=== PATIENT | female | born 1940 | race Caucasian/White ===

== ENCOUNTER 2020-12-08 13:28 | Outpatient (CLI) | payer MEDICARE, SELFPAY ==
[2020-12-08 13:47] LABS: Add Urine Microscopic? YES; Appearance Urine Clear (Clear); Bilirubin Urine Negative (Negative); Blood Urine 1+ (Negative); Color Urine Yellow (Yellow); Glucose Urine UA Negative (Negative); Ketones Urine Negative (Negative); Leukocyte Esterase Ur 3+ (Negative); Nitrate Urine Negative (Negative); Protein Urine Negative (Negative); Urobilinogen Urine 0.2 mg/dL (0.2-1.0)
[2020-12-08 13:56] LABS: Squamous Epithelial Cell Urine Few /hpf (Few); WBC Urine >75 /hpf (0-3)
[2020-12-08 13:57] LABS: Bacteria Urine 3+ /hpf
== END 2020-12-08 13:29 | disposition home or self-care (01) ==
LOC: CHSLAB 13:34
PROVIDERS: PCP Internal Medicine; Visit Provider Internal Medicine
DX: N39.0 Urinary tract infection, site not specified (principal)
CPT/HCPCS: 81001; 87086; 87088

== ENCOUNTER 2021-04-24 18:10 | IRF | payer MEDICARE, SELFPAY ==
--- NOTE | ~2021-04-24 | XR_ITS ---
EXAMINATION: XR chest 1V portable DATE: 05/02/2021 14:30 INDICATION: Leukocytosis. Dysphagia. TECHNIQUE: A single frontal view of the chest was obtained. COMPARISON: Chest 2 views 12/11/2016 FINDINGS: There are airspace opacities in left lower lung zone. No pleural effusion or pneumothorax. The heart size is normal. Calcified right hilar lymph nodes are consistent with old granulomatous dis ease. There are changes of posterior fusion procedure in cervical spine. An electronic device overlie s left chest. There is an old healed fracture of proximal left humerus. IMPRESSION: 1. Airspace opacities in left lower lung zone, consistent with atelectasis versus pneumonia. Reviewed, dictated and finalized at location A. IMPRESSION: 1. Airspace opacities in left lower lung zone, consistent with atelectasis vers us pneumonia.
--- NOTE | ~2021-04-24 | XR_ITS ---
EXAMINATION: XR barium swallow modified DATE: 04/26/2021 09:14 INDICATION: Stroke TECHNIQUE: Modified barium esophagram was performed by myself to administered fluoroscopy, in conjun ction with speech pathologist who administered barium in varying consistencies as per speech patholog ist documentation. This was recorded on tape. A single fluoroscopic spot image was recorded. The DAP for this procedure was 2.155 Gycm2. Fluoroscopy exposure time was 2.9 minutes. FINDINGS: Oral stage: Adequate function. Pharyngeal phase: Adequate function. Laryngeal penetration: None. Aspiration: None. Laryngeal sensitivity: Present. IMPRESSION: Normal modified barium swallow. Please refer to speech pathologist findings and specific feeding recommendations. Reviewed, dictated and finalized at location A.
[2021-04-24 18:15] VITALS: BP 172/50; PULSE 58; RESP 18; TEMP 36.2; O2SAT 99; BMI 29.7
--- NOTE | 2021-04-24 18:51 | ADMGEN ---
This patient, Ry Nesbitt, was admitted to [facility] Room 223-02. Patient/family oriented to hospital policies and general routines including ID bracelet, bed and alarms, visiting hours, pain management, procedures, bathroom and other care routines, personal items, smoking policy, room service/diet, and visiting hours. Information on how to activate the Rapid Response Team has been discussed. Patient/Family are encouraged to report perceived risks to care and to ask questions if they do not understand what they are told or what they should do. Arrived via private auto with daughter, she is alert and oriented and has no c/o pain
[2021-04-24] MEDS: MELATONIN 5 MG TABLET PO (20:49)
[2021-04-24] MEDS: CEPHALEXIN 500 MG CAPSULE PO (20:49)
[2021-04-24] MEDS: SENNA/DOCUSATE SODIUM TABLET 1 TAB PO (20:50)
[2021-04-24] MEDS: hydrOXYzine pamoate 25 MG CAPSULE PO (20:51)
[2021-04-24] MEDS: DULoxetine HCL 30 MG CAPSULE.DR PO (20:52)
[2021-04-24] MEDS: ATORVASTATIN 40 MG TABLET PO (20:52)
[2021-04-24] MEDS: oxyCODONE/ACETAMINOPHEN (*CRX) 5-325 MG TABLET 1 TABLET PO (20:58)
[2021-04-24 21:30] VITALS: BP 165/59; PULSE 67; RESP 18; TEMP 35.8; O2SAT 99
[2021-04-24] MEDS: ENOXAPARIN 40 MG/0.4 ML SYRINGE SUB-Q (21:45)
[2021-04-25 05:01] LABS: Basophils Percent Auto 0.2 % (0.2-1.2); Hematocrit 38.4 % (37.0-47.0); Immature Granulocyte Absolute 0.05 K/mm3 (0.00-0.031); Immature Granulocyte Percent A 0.4 % (0-0.5); Lymphocytes Absolute Auto 2.43 K/mm3 (0.9-3.2); Lymphocytes Percent Auto 19.9 % (18.3-44.2); Mean Corpuscular HGB Conc 33.9 g/dl (32-36); Mean Corpuscular Hemoglobin 29.8 pg (26-34); Mean Corpuscular Volume 88.1 fl (80-100); Mean Platelet Volume 9.3 fl (7.4-10.4); Monocytes Absolute Auto 1.3 K/mm3 (0.1-0.6); Monocytes Percent Auto 10.8 % (2.6-8.5); Neutrophils Absolute Auto 8.4 K/mm3 (1.3-6.7); Neutrophils Percent Auto 68.7 % (45.5-73.1); Platelet Count Result 198 k/mm3 (150-375); Red Blood Count 4.36 M/mm3 (4.2-5.4); Red Cell Distribution Width 13.3 % (11.5-14.5); White Blood Count 12.2 K/mm3 (4.5-10.0)
[2021-04-25 05:12] LABS: Alanine Aminotransferase 30 U/L (4-35); Albumin Level 4.2 g/dL (3.5-5.1); Alkaline Phosphatase 118 U/L (38-126); Anion Gap 8 mmol/L (8-16); Aspartate Amino Transferase 55 U/L (14-36); Bilirubin,Total 0.8 mg/dL (0.2-1.3); Blood Urea Nitrogen 16 mg/dL (7-17); Calcium 9.2 mg/dL (8.4-10.2); Carbon Dioxide 28 mmol/L (22-30); Chloride 104 mmol/L (98-107); Cholesterol 181 mg/dL (0-200); Estimated Glomerular Filt Rate 60; Glucose 105 mg/dL (65-105); HDL Direct 55 mg/dL; Potassium 3.5 mmol/L (3.4-5.0); Sodium 140 mmol/L (137-145); Triglycerides 127 mg/dL (<150)
[2021-04-25 05:23] LABS: LDL Cholesterol Direct 72 mg/dL
[2021-04-25 05:59] VITALS: BP 162/57; PULSE 82; RESP 20; TEMP 36.1; O2SAT 96
[2021-04-25] MEDS: oxyCODONE/ACETAMINOPHEN (*CRX) 5-325 MG TABLET 1 TABLET PO ×2 (08:31→20:44)
[2021-04-25] MEDS: ASPIRIN 325 MG TABLET PO (08:33)
[2021-04-25] MEDS: hydrOXYzine pamoate 25 MG CAPSULE PO ×2 (08:33→20:44)
[2021-04-25] MEDS: amLODIPine BESYLATE 5 MG TABLET 10 MG PO (08:33)
[2021-04-25] MEDS: MULTIVITAMINS /C LUTEIN (CENTRUM SILVER) TABLET *BKC 1 TAB PO (08:34)
[2021-04-25] MEDS: SENNA/DOCUSATE SODIUM TABLET 1 TAB PO ×2 (08:34→20:44)
[2021-04-25] MEDS: hydroCHLOROthiazide 25 MG TABLET PO (08:34)
[2021-04-25 09:08] VITALS: PULSE 82
[2021-04-25] MEDS: CEPHALEXIN 500 MG CAPSULE PO ×2 (09:08→20:45)
[2021-04-25] MEDS: TIZANIDINE HCL 2 MG TABLET PO (09:08)
[2021-04-25] MEDS: METOPROLOL TARTRATE 50 MG TAB PO ×2 (09:08→20:44)
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
[2021-04-25 13:02] VITALS: BMI 29.7
[2021-04-25 13:43] VITALS: BP 116/53; PULSE 67; RESP 16; TEMP 36.2; O2SAT 97
[2021-04-25] MEDS: ACETAMINOPHEN 325 MG TABLET 650 MG PO (15:55)
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
[2021-04-25 20:44] VITALS: PULSE 67
[2021-04-25] MEDS: DULoxetine HCL 30 MG CAPSULE.DR PO (20:45)
[2021-04-25] MEDS: ATORVASTATIN 40 MG TABLET PO (20:45)
[2021-04-25] MEDS: MELATONIN 5 MG TABLET PO (20:45)
[2021-04-25] MEDS: ENOXAPARIN 40 MG/0.4 ML SYRINGE SUB-Q (20:46)
[2021-04-25 22:00] VITALS: BP 138/51; PULSE 65; RESP 16; TEMP 36.1; O2SAT 94
[2021-04-26 05:56] VITALS: BP 147/56; PULSE 63; RESP 16; TEMP 35.9; O2SAT 98
[2021-04-26 08:00] VITALS: PULSE 63; RESP 16; O2SAT 98
[2021-04-26] MEDS: hydroCHLOROthiazide 25 MG TABLET PO (08:34)
[2021-04-26] MEDS: ASPIRIN 325 MG TABLET PO (08:34)
[2021-04-26] MEDS: TIZANIDINE HCL 2 MG TABLET PO (08:34)
[2021-04-26 08:35] VITALS: PULSE 63
[2021-04-26] MEDS: SENNA/DOCUSATE SODIUM TABLET 1 TAB PO ×2 (08:35→20:05)
[2021-04-26] MEDS: MULTIVITAMINS /C LUTEIN (CENTRUM SILVER) TABLET *BKC 1 TAB PO (08:35)
[2021-04-26] MEDS: METOPROLOL TARTRATE 50 MG TAB PO ×2 (08:35→20:06)
[2021-04-26] MEDS: CEPHALEXIN 500 MG CAPSULE PO ×2 (08:35→20:05)
[2021-04-26] MEDS: amLODIPine BESYLATE 5 MG TABLET 10 MG PO (08:35)
[2021-04-26] MEDS: oxyCODONE/ACETAMINOPHEN (*CRX) 5-325 MG TABLET 1 TABLET PO ×2 (08:39→20:04)
[2021-04-26 14:00] VITALS: BP 133/48; PULSE 64; RESP 16; TEMP 36.5; O2SAT 100
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
--- NOTE | 2021-04-26 15:11 | RPD ---
INDIVIDUALIZED PLAN OF CARE FOR Raqueltel Nesbitt Brief Synthesis of Pre-Admission Screen, Post-Admission Evaluation and Therapy Evaluations: The patient presents to rehab with a right MCA ischemic embolic stroke. Comorbidities include left-sided weakness, hypokalemia, urinary tract infection, prediabetes, hypertension, cervical radiculopathy, low back pain, dysarthria, dysphagia, and anxiety.The complexity of the patient's medical management, nursing, and therapy needs require an inpatient rehab hospital stay with a physician-led interdisciplinary team approach. The patient?s needs will be best met in an intensive program vs. at a lower level of care. The patient requires physician services for medical oversight, and coordination of care. Emotional needs will be monitored as depression is a common sequelae of stroke. The patient needs physician monitoring and treatment of a new prediabetes diagnosis, hypertension, hyperlipidemia, hypokalemia, urinary tract infection, cervical radiculopathy, monitoring for adverse reactions to new medications, monitoring of infection, and pain control. The patient requires nursing services for frequent neuro checks, anticoagulation therapy, medication management and education, pressure relief and skin care management, monitoring of labs, diabetes management and education, possible IV administration, and fall/safety precautions. Deficits include:ADLs, Balance, Cognition, Endurance, Family Training/Education, Mobility, Pain Management, ROM, Safety, Speech, Strength, Swallowing, and Transfers. Photo Journalist/Case Management for: Discharge Planning and Patient/Family Counseling Physical Therapy: 5 days per week for 75 minutes. Treatments may include: Therapeutic Exercise, Gait Training, Neuromuscular Re-education, Transfer Training, Community Reintegration, Bed Mobility, Patient/Family Education, Wheelchair Mobility Group Therapy/Concurrent Therapy Rationales: -Improve attention span during functional activities in a distracted environment. -Enhance problem solving and/or adequate judgment skills during functional activities in a distracted environment. -Promote increased safety awareness in a distracted environment to reduce fall risk with functional tasks, transfers, and ambulation to allow a more safe, self-sufficient return to the home environment. -Improve dynamic balance skills to promote safety and independence with functional activities in a distracted environment for maximum gain. Occupational Therapy: 5 days per week for 75 minutes. Treatments may include: Therapeutic Exercise, Therapeutic Activity, Cognitive Training, Self-Care Transfer Training, Community Reintegration, Home Management, Patient/Family Education, Wheelchair Mobility Training, Energy Conservation Training Group Therapy/Concurrent Therapy Rationales: -Allow therapist to observe and teach generalization and carry-over of skills learned in individual therapy. -Enhance problem solving and sequencing skills during therapeutic activities in a distracted environment. -Promote increased safety awareness in a realistic setting to reduce fall risk with functional tasks due to visual and verbal distractions. -Increase functional level with ADLs, ADL transfers and use of adaptive equipment through therapeutic activities with others while promoting safety to allow a more safe, self-sufficient return home. Speech Therapy: 5 days per week for 30 minutes. Treatments may include: Dysphasia Therapy, Speech/Language/Communication Therapy, Cognitive Training, Patient/Family Education Group Therapy/Concurrent Therapy - Rationale: -Allow therapist to observe and teach generalization and carry-over of skills learned in individual therapy. -Improve comprehension skills with complex or abstract ideas through discussion in a realistic setting. -Enhance problem solving skills with complex issues during activities in a distracted environment. -Promote increased memory skills and concentrat
[2021-04-26] MEDS: oxyCODONE HCL (*CRX) 5 MG TAB IR PO (20:04)
[2021-04-26] MEDS: ENOXAPARIN 40 MG/0.4 ML SYRINGE SUB-Q (20:05)
[2021-04-26] MEDS: ATORVASTATIN 40 MG TABLET PO (20:05)
[2021-04-26 20:06] VITALS: PULSE 64
[2021-04-26] MEDS: MELATONIN 5 MG TABLET PO (20:06)
[2021-04-26] MEDS: DULoxetine HCL 30 MG CAPSULE.DR PO (20:06)
[2021-04-26 22:00] VITALS: BP 128/65; PULSE 77; RESP 20; TEMP 35.8; O2SAT 95
[2021-04-27] VITALS (8 sets, daily range): BP systolic 138–150; BP diastolic 61–77; PULSE 61–79; RESP 16–20; TEMP 36–36.2; O2SAT 94–96
[2021-04-27] MEDS: oxyCODONE HCL (*CRX) 5 MG TAB IR PO (07:37)
[2021-04-27] MEDS: oxyCODONE/ACETAMINOPHEN (*CRX) 5-325 MG TABLET 1 TABLET PO (07:37)
[2021-04-27] MEDS: ASPIRIN 325 MG TABLET PO (08:35)
[2021-04-27] MEDS: METOPROLOL TARTRATE 50 MG TAB PO ×2 (08:36→20:59)
[2021-04-27] MEDS: amLODIPine BESYLATE 5 MG TABLET 10 MG PO (08:36)
[2021-04-27] MEDS: CEPHALEXIN 500 MG CAPSULE PO ×2 (08:36→20:59)
[2021-04-27] MEDS: SENNA/DOCUSATE SODIUM TABLET 1 TAB PO ×2 (08:37→20:59)
[2021-04-27] MEDS: hydroCHLOROthiazide 25 MG TABLET PO (08:37)
[2021-04-27] MEDS: MULTIVITAMINS /C LUTEIN (CENTRUM SILVER) TABLET *BKC 1 TAB PO (08:37)
[2021-04-27] MEDS: TIZANIDINE HCL 2 MG TABLET PO (08:37)
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
--- NOTE | 2021-04-27 13:10 | PCNFU ---
Nutrition Follow-Up Complete: Nutrition Diagnosis: Inadequate oral intake related to poor appetite as evidenced by patient statements, intakes less than 50% at meals, documented weight loss. Nutrition Goal: Patient will consume 50% of meals/supplements or greater and maintain weight. Goal has been met, patient is consistently consuming 75% or greater of meals/ supplements. Nutrition recommendation: Continue with Regular diet and Frozen Nutritional Treat (300 calories and 9 grams of protein) BID, per patient's request. Last recorded weight is 66.9 kg. Recommend obtaining new weight. Bowel Motility: Last documented on 04/26. Labs Reviewed: No new labs have been documented. Meds Noted: Norvasc, Lipitor, Senna, Bisacodyl, Calcium Carbonate, Keflex, Cymbalta, Lovenox, Hydrochlorothiazide, Vistaril, Lopressor, Zanaflex, Centrum Additional Notes: Skin is within normal limits, no causes of concern documented. Agree with diet orders. [place] MNT provided today via handout. Follow up every 7 days.
--- NOTE | 2021-04-27 13:27 | PCNSR ---
On 04/27/21, the student, Lora Means, provided care and completed [facility] documentation on this patient. I have reviewed the student's documentation and agree with the findings.
[2021-04-27] MEDS: MELATONIN 5 MG TABLET PO (21:00)
[2021-04-27] MEDS: DULoxetine HCL 30 MG CAPSULE.DR PO (21:00)
[2021-04-27] MEDS: ENOXAPARIN 40 MG/0.4 ML SYRINGE SUB-Q (21:00)
[2021-04-27] MEDS: ATORVASTATIN 40 MG TABLET PO (21:00)
[2021-04-28 06:00] VITALS: BP 150/46; PULSE 66; RESP 18; TEMP 36; O2SAT 96
[2021-04-28] MEDS: amLODIPine BESYLATE 5 MG TABLET 10 MG PO (08:39)
[2021-04-28 08:40] VITALS: PULSE 66
[2021-04-28] MEDS: hydroCHLOROthiazide 25 MG TABLET PO (08:40)
[2021-04-28] MEDS: MULTIVITAMINS /C LUTEIN (CENTRUM SILVER) TABLET *BKC 1 TAB PO (08:40)
[2021-04-28] MEDS: ASPIRIN 325 MG TABLET PO (08:40)
[2021-04-28] MEDS: TIZANIDINE HCL 2 MG TABLET PO (08:40)
[2021-04-28] MEDS: METOPROLOL TARTRATE 50 MG TAB PO ×2 (08:40→20:39)
[2021-04-28] MEDS: SENNA/DOCUSATE SODIUM TABLET 1 TAB PO ×2 (08:42→20:39)
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
--- NOTE | 2021-04-28 10:10 | ECG_ITS ---
Measurements Intervals [place] Rate: 61 P: 7 MS: 195 QRS: -12 QRSD: 152 T: 8 QT: 444 QTc: 449 Interpretive Statements SINUS RHYTHM RIGHT BUNDLE BRANCH BLOCK VOLTAGE CRITERIA FOR LVH BASELINE ARTIFACT- I, II, AVR ABNORMAL ECG Electronically Signed On 04-28-2021 19:21:20 CDT by Kel Gonzalez D.O.
[2021-04-28 10:16] LABS: Glucose Point of Care 219 mg/dl (65-105)
--- NOTE | 2021-04-28 10:43 | PC.NURSE ---
during physical therapy this am patient had a 'spell' where she felt 'dizzy and felt like jelly'. B/P 123, Dr. Valerio made aware and orders received. EKG done and results reviewed by Dr. Machuca
[2021-04-28 11:38] LABS: Basophils Percent Auto 0.2 % (0.2-1.2); Hematocrit 38.7 % (37.0-47.0); Hemoglobin 12.9 g/dL (12.0-15.0); Immature Granulocyte Absolute 0.05 K/mm3 (0.00-0.031); Immature Granulocyte Percent A 0.4 % (0-0.5); Lymphocytes Absolute Auto 1.75 K/mm3 (0.9-3.2); Lymphocytes Percent Auto 14.8 % (18.3-44.2); Mean Corpuscular HGB Conc 33.3 g/dl (32-36); Mean Corpuscular Hemoglobin 29.7 pg (26-34); Mean Platelet Volume 9.9 fl (7.4-10.4); Monocytes Absolute Auto 1.2 K/mm3 (0.1-0.6); Monocytes Percent Auto 9.9 % (2.6-8.5); Neutrophils Absolute Auto 8.9 K/mm3 (1.3-6.7); Neutrophils Percent Auto 74.7 % (45.5-73.1); Platelet Count Result 239 k/mm3 (150-375); Red Blood Count 4.35 M/mm3 (4.2-5.4); Red Cell Distribution Width 13.2 % (11.5-14.5); White Blood Count 11.8 K/mm3 (4.5-10.0)
[2021-04-28 11:53] LABS: Alanine Aminotransferase 26 U/L (4-35); Albumin Level 4.3 g/dL (3.5-5.1); Alkaline Phosphatase 107 U/L (38-126); Anion Gap 10 mmol/L (8-16); Aspartate Amino Transferase 34 U/L (14-36); Bilirubin,Total 0.6 mg/dL (0.2-1.3); Blood Urea Nitrogen 28 mg/dL (7-17); Calcium 9.4 mg/dL (8.4-10.2); Carbon Dioxide 27 mmol/L (22-30); Chloride 101 mmol/L (98-107); Estimated Glomerular Filt Rate 53; Glucose 142 mg/dL (65-105); Potassium 3.4 mmol/L (3.4-5.0); Sodium 138 mmol/L (137-145)
[2021-04-28] MEDS: LIDOCAINE 5% PATCH 2 PATCH TRANSDERM (12:30)
[2021-04-28 14:00] VITALS: BP 135/50; PULSE 71; RESP 20; TEMP 36.6; O2SAT 98
[2021-04-28 20:00] VITALS: PULSE 85; RESP 18; O2SAT 99
[2021-04-28 20:39] VITALS: PULSE 58
[2021-04-28] MEDS: ATORVASTATIN 40 MG TABLET PO (20:39)
[2021-04-28] MEDS: DULoxetine HCL 30 MG CAPSULE.DR PO (20:39)
[2021-04-28] MEDS: ENOXAPARIN 40 MG/0.4 ML SYRINGE SUB-Q (20:42)
[2021-04-28] MEDS: MELATONIN 5 MG TABLET PO (20:58)
[2021-04-28] MEDS: oxyCODONE HCL (*CRX) 5 MG TAB IR PO (20:59)
[2021-04-28] MEDS: oxyCODONE/ACETAMINOPHEN (*CRX) 5-325 MG TABLET 1 TABLET PO (21:00)
[2021-04-28 21:58] VITALS: BP 141/49; PULSE 85; RESP 18; TEMP 36.1; O2SAT 99
[2021-04-29 06:00] VITALS: BP 152/56; PULSE 84; RESP 16; TEMP 36.4; O2SAT 95
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
[2021-04-29] MEDS: hydrOXYzine pamoate 25 MG CAPSULE PO ×2 (08:36→21:05)
[2021-04-29] MEDS: ACETAMINOPHEN 500 MG TABLET PO ×2 (08:37→17:21)
[2021-04-29] MEDS: amLODIPine BESYLATE 5 MG TABLET 10 MG PO (08:37)
[2021-04-29] MEDS: SENNA/DOCUSATE SODIUM TABLET 1 TAB PO ×2 (08:38→21:06)
[2021-04-29] MEDS: LIDOCAINE 5% PATCH 3 PATCH TRANSDERM (08:38)
[2021-04-29] MEDS: hydroCHLOROthiazide 25 MG TABLET PO (08:38)
[2021-04-29] MEDS: TIZANIDINE HCL 2 MG TABLET PO (08:38)
[2021-04-29] MEDS: ASPIRIN 325 MG TABLET PO (08:38)
[2021-04-29] MEDS: MULTIVITAMINS /C LUTEIN (CENTRUM SILVER) TABLET *BKC 1 TAB PO (08:38)
[2021-04-29 08:39] VITALS: PULSE 84
[2021-04-29] MEDS: METOPROLOL TARTRATE 50 MG TAB PO ×2 (08:39→20:57)
[2021-04-29 13:26] VITALS: BP 128/48; PULSE 70; RESP 18; TEMP 36.2; O2SAT 96
[2021-04-29] MEDS: DULoxetine HCL 30 MG CAPSULE.DR PO (20:56)
[2021-04-29] MEDS: ATORVASTATIN 40 MG TABLET PO (20:56)
[2021-04-29 20:57] VITALS: PULSE 70
[2021-04-29] MEDS: MELATONIN 5 MG TABLET PO (20:57)
[2021-04-29] MEDS: oxyCODONE/ACETAMINOPHEN (*CRX) 5-325 MG TABLET 1 TABLET PO (21:04)
[2021-04-29] MEDS: ENOXAPARIN 40 MG/0.4 ML SYRINGE SUB-Q (21:06)
[2021-04-29 22:00] VITALS: BP 151/58; PULSE 72; RESP 18; TEMP 36; O2SAT 92
[2021-04-30 06:00] VITALS: BP 167/64; PULSE 84; RESP 18; TEMP 36.6; O2SAT 96
[2021-04-30] MEDS: LIDOCAINE 5% PATCH 3 PATCH TRANSDERM (08:44)
[2021-04-30 08:48] VITALS: PULSE 84
[2021-04-30] MEDS: amLODIPine BESYLATE 5 MG TABLET 10 MG PO (08:48)
[2021-04-30] MEDS: hydroCHLOROthiazide 25 MG TABLET PO (08:48)
[2021-04-30] MEDS: MULTIVITAMINS /C LUTEIN (CENTRUM SILVER) TABLET *BKC 1 TAB PO (08:48)
[2021-04-30] MEDS: METOPROLOL TARTRATE 50 MG TAB PO ×2 (08:48→20:46)
[2021-04-30] MEDS: SENNA/DOCUSATE SODIUM TABLET 1 TAB PO ×2 (08:48→20:44)
[2021-04-30] MEDS: ASPIRIN 325 MG TABLET PO (08:48)
[2021-04-30] MEDS: TIZANIDINE HCL 2 MG TABLET PO (08:48)
[2021-04-30] MEDS: ACETAMINOPHEN 500 MG TABLET PO (08:53)
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
[2021-04-30 14:00] VITALS: BP 149/57; PULSE 96; RESP 18; TEMP 35.9; O2SAT 92
--- NOTE | 2021-04-30 15:00 | PCPTNOTE ---
Ry Nesbitt was evaluated for a ilda cane on 04/30/2021 by this physical therapist. The ilda cane will resolve patient's mobility limitations and will be used for ADL's within the home. The patient can safely use the ilda cane. ?The ilda cane will resolve the patient?s mobility deficits, including balance deficits, decreased endurance, and L hemiparesis.
[2021-04-30 20:00] VITALS: PULSE 63; RESP 18; O2SAT 94
[2021-04-30] MEDS: ATORVASTATIN 40 MG TABLET PO (20:44)
[2021-04-30] MEDS: DULoxetine HCL 20 MG CAPSULE.DR 40 MG PO (20:45)
[2021-04-30 20:46] VITALS: PULSE 96
[2021-04-30] MEDS: ENOXAPARIN 40 MG/0.4 ML SYRINGE SUB-Q (20:46)
[2021-04-30] MEDS: hydrOXYzine pamoate 25 MG CAPSULE PO (20:47)
[2021-04-30] MEDS: MELATONIN 5 MG TABLET PO (20:50)
[2021-04-30] MEDS: oxyCODONE/ACETAMINOPHEN (*CRX) 5-325 MG TABLET 1 TABLET PO (20:57)
[2021-04-30] MEDS: oxyCODONE HCL (*CRX) 5 MG TAB IR PO (20:58)
[2021-04-30 22:00] VITALS: BP 150/54; PULSE 63; RESP 18; TEMP 36.2; O2SAT 94
[2021-05-01 06:00] VITALS: BP 150/57; PULSE 65; RESP 16; TEMP 36.4; O2SAT 94
[2021-05-01 08:00] VITALS: PULSE 65; RESP 16; O2SAT 94
[2021-05-01] MEDS: hydroCHLOROthiazide 25 MG TABLET PO (09:15)
[2021-05-01] MEDS: amLODIPine BESYLATE 5 MG TABLET 10 MG PO (09:15)
[2021-05-01] MEDS: SENNA/DOCUSATE SODIUM TABLET 1 TAB PO ×2 (09:15→22:21)
[2021-05-01] MEDS: MULTIVITAMINS /C LUTEIN (CENTRUM SILVER) TABLET *BKC 1 TAB PO (09:15)
[2021-05-01] MEDS: ASPIRIN 325 MG TABLET PO (09:15)
[2021-05-01 09:16] VITALS: PULSE 65
[2021-05-01] MEDS: TIZANIDINE HCL 2 MG TABLET PO (09:16)
[2021-05-01] MEDS: METOPROLOL TARTRATE 50 MG TAB PO ×2 (09:16→22:22)
[2021-05-01] MEDS: LIDOCAINE 5% PATCH 3 PATCH TRANSDERM (09:16)
--- NOTE | 2021-05-01 09:16 | PCPTNOTE ---
Riri ALluvia Fiore PTA completed an inpatient rehab wheelchair evaluation on Raqueltelore Nesbitt on 05/01/2021. The patient is unable to safely and independently ambulate household distances due to their current impairments. Their diagnosis is CVA and their impairments include decreased strength, decreased endurance, decreased range of motion, decreased balance and lower extremity weakness. Bernardo's weight bearing status is weight-bearing as tolerated on the bilateral lower legs. The patient demonstrates significant functional mobility limitations that impair their ability to participate in mobility-related activities of daily living (MRADLs), including toileting, feeding, dressing, grooming, and bathing in the customary locations in the home. These limitations cannot be sufficiently resolved by the use of an appropriately fitted cane or walker. It is recommended that the patient utilize a wheelchair for functional mobility within the home in order to facilitate optimal safety, independence and participation in all MRADL's and adequately access their home environment on a regular basis. The patient's home provides adequate access between rooms, maneuvering space, and surfaces to accommodate the recommended wheelchair. The use of a wheelchair for functional mobility is strongly recommended and the patient is receptive to using the wheelchair. The use of this wheelchair will significantly improve the patient's ability to participate in MRADLS and the patient will use it on a regular basis in the home. This will facilitate optimal safety, independence, and participation. The patient has demonstrated sufficient physical and mental capabilities needed to safely propel a manual wheelchair that is provided in the home during a typical day. Recommended Wheelchair Frame: Standard Recommended Wheelchair Size: 16x16 (17 inch height of chair to floor due to patient's anatomical height of 4 feet 11 inches) Recommended Wheelchair Cushion:standard Wheelchair Leg Recommendations: swing away leg rests - Anti-tippers are recommended due to patient demonstrating increased risk for falls. They would benefit from anti-tippers with added safety and stabilization. Riri Fiore NECKTIE STITCHER 05/01/2021 Evaluating Therapist Date I agree with and certify that the above recommendation is medically necessary. Referring Physician Date I agree with and certify that the above recommendation is medically necessary. Referring Physician Date
[2021-05-01 14:00] VITALS: BP 139/44; PULSE 64; RESP 16; TEMP 36.5; O2SAT 96
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
[2021-05-01 21:59] VITALS: BP 152/93; PULSE 80; RESP 18; TEMP 36.8; O2SAT 97
[2021-05-01] MEDS: ENOXAPARIN 40 MG/0.4 ML SYRINGE SUB-Q (22:21)
[2021-05-01 22:22] VITALS: PULSE 80
[2021-05-01] MEDS: ATORVASTATIN 40 MG TABLET PO (22:22)
[2021-05-01] MEDS: DULoxetine HCL 30 MG CAPSULE.DR PO (22:23)
[2021-05-01] MEDS: hydrOXYzine pamoate 25 MG CAPSULE PO (22:23)
[2021-05-01] MEDS: oxyCODONE/ACETAMINOPHEN (*CRX) 5-325 MG TABLET 1 TABLET PO (22:25)
[2021-05-01] MEDS: MELATONIN 5 MG TABLET PO (22:25)
[2021-05-02 05:07] LABS: Basophils Percent Auto 0.2 % (0.2-1.2); Hematocrit 34.9 % (37.0-47.0); Hemoglobin 11.6 g/dL (12.0-15.0); Immature Granulocyte Absolute 0.07 K/mm3 (0.00-0.031); Immature Granulocyte Percent A 0.5 % (0-0.5); Lymphocytes Absolute Auto 2.96 K/mm3 (0.9-3.2); Lymphocytes Percent Auto 22.3 % (18.3-44.2); Mean Corpuscular HGB Conc 33.2 g/dl (32-36); Mean Corpuscular Hemoglobin 29.1 pg (26-34); Mean Corpuscular Volume 87.7 fl (80-100); Mean Platelet Volume 9.3 fl (7.4-10.4); Monocytes Absolute Auto 1.4 K/mm3 (0.1-0.6); Monocytes Percent Auto 10.4 % (2.6-8.5); Neutrophils Absolute Auto 8.8 K/mm3 (1.3-6.7); Neutrophils Percent Auto 66.6 % (45.5-73.1); Platelet Count Result 260 k/mm3 (150-375); Red Blood Count 3.98 M/mm3 (4.2-5.4); Red Cell Distribution Width 12.7 % (11.5-14.5); White Blood Count 13.3 K/mm3 (4.5-10.0)
[2021-05-02 05:50] VITALS: BP 146/61; PULSE 65; RESP 18; TEMP 36.4; O2SAT 96
[2021-05-02 06:49] LABS: Alanine Aminotransferase 19 U/L (4-35); Albumin Level 3.8 g/dL (3.5-5.1); Alkaline Phosphatase 113 U/L (38-126); Anion Gap 9 mmol/L (8-16); Aspartate Amino Transferase 30 U/L (14-36); Bilirubin,Total 0.5 mg/dL (0.2-1.3); Blood Urea Nitrogen 23 mg/dL (7-17); Carbon Dioxide 29 mmol/L (22-30); Chloride 99 mmol/L (98-107); Estimated Glomerular Filt Rate > 60; Glucose 122 mg/dL (65-105); Potassium 2.9 mmol/L (3.4-5.0); Sodium 137 mmol/L (137-145)
[2021-05-02] MEDS: ACETAMINOPHEN 500 MG TABLET PO ×2 (08:38→17:45)
[2021-05-02] MEDS: amLODIPine BESYLATE 5 MG TABLET 10 MG PO (08:39)
[2021-05-02] MEDS: SENNA/DOCUSATE SODIUM TABLET 1 TAB PO ×2 (08:39→20:04)
[2021-05-02] MEDS: ASPIRIN 325 MG TABLET PO (08:39)
[2021-05-02 08:40] VITALS: PULSE 65
[2021-05-02] MEDS: LIDOCAINE 5% PATCH 3 PATCH TRANSDERM (08:40)
[2021-05-02] MEDS: TIZANIDINE HCL 2 MG TABLET PO (08:40)
[2021-05-02] MEDS: hydroCHLOROthiazide 25 MG TABLET PO (08:40)
[2021-05-02] MEDS: METOPROLOL TARTRATE 50 MG TAB PO ×2 (08:40→20:04)
[2021-05-02] MEDS: MULTIVITAMINS /C LUTEIN (CENTRUM SILVER) TABLET *BKC 1 TAB PO (08:40)
[2021-05-02 09:44] VITALS: BP 168/54; PULSE 69; O2SAT 97
[2021-05-02 14:00] VITALS: BP 152/59; PULSE 73; RESP 16; TEMP 36.5; O2SAT 97
[2021-05-02 15:44] LABS: Add Urine Microscopic? YES; Appearance Urine Cloudy (Clear); Bacteria Urine Trace /hpf; Bilirubin Urine Negative (Negative); Blood Urine Negative (Negative); Color Urine Amber (Yellow); Glucose Urine UA Negative (Negative); Hyaline Casts Urine 15-19 /lpf; Ketones Urine Negative (Negative); Leukocyte Esterase Ur 2+ LEU/UL (Negative); Mucus Urine Rare /lpf; Nitrate Urine Negative (Negative); Protein Urine 1+ mg/dL (Negative); Squamous Epithelial Cell Urine Moderate /hpf (Few); Urobilinogen Urine Negative mg/dL (<2.0); WBC Urine 21-30 /hpf
[2021-05-02] MEDS: POTASSIUM CHLORIDE 20 MEQ PACKET (FOR LIQUID) 40 MEQ PO (17:39)
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
[2021-05-02] MEDS: CEPHALEXIN 500 MG CAPSULE PO (18:54)
[2021-05-02] MEDS: ALBUTEROL SULFATE (*SP) AEROSOL 1 PUFF 2 PUFF INHALATION (20:00)
[2021-05-02 20:04] VITALS: PULSE 73
[2021-05-02] MEDS: ATORVASTATIN 40 MG TABLET PO (20:05)
[2021-05-02] MEDS: hydrOXYzine pamoate 25 MG CAPSULE PO (20:05)
[2021-05-02] MEDS: DULoxetine HCL 30 MG CAPSULE.DR PO (20:06)
[2021-05-02] MEDS: ENOXAPARIN 40 MG/0.4 ML SYRINGE SUB-Q (20:06)
[2021-05-02] MEDS: MELATONIN 5 MG TABLET PO (20:08)
[2021-05-02] MEDS: oxyCODONE/ACETAMINOPHEN (*CRX) 5-325 MG TABLET 1 TABLET PO (20:08)
[2021-05-02 22:00] VITALS: BP 127/50; PULSE 62; RESP 18; TEMP 36.2; O2SAT 90
[2021-05-03] MEDS: ALBUTEROL SULFATE (*SP) AEROSOL 1 PUFF 2 PUFF INHALATION ×4 (01:11→20:11)
[2021-05-03 05:58] VITALS: BP 149/59; PULSE 71; RESP 16; TEMP 36.5; O2SAT 94
[2021-05-03 09:28] VITALS: PULSE 74
[2021-05-03] MEDS: SENNA/DOCUSATE SODIUM TABLET 1 TAB PO ×2 (09:28→20:09)
[2021-05-03] MEDS: amLODIPine BESYLATE 5 MG TABLET 10 MG PO (09:28)
[2021-05-03] MEDS: LIDOCAINE 5% PATCH 3 PATCH TRANSDERM (09:28)
[2021-05-03] MEDS: ASPIRIN 325 MG TABLET PO (09:28)
[2021-05-03] MEDS: hydroCHLOROthiazide 25 MG TABLET PO (09:28)
[2021-05-03] MEDS: MULTIVITAMINS /C LUTEIN (CENTRUM SILVER) TABLET *BKC 1 TAB PO (09:28)
[2021-05-03] MEDS: METOPROLOL TARTRATE 50 MG TAB PO ×2 (09:28→20:09)
[2021-05-03] MEDS: CEPHALEXIN 500 MG CAPSULE PO ×2 (09:28→20:10)
[2021-05-03] MEDS: TIZANIDINE HCL 2 MG TABLET PO (09:29)
[2021-05-03] MEDS: oxyCODONE/ACETAMINOPHEN (*CRX) 5-325 MG TABLET 1 TABLET PO (09:35)
[2021-05-03] MEDS: oxyCODONE HCL (*CRX) 5 MG TAB IR PO (09:36)
[2021-05-03 11:49] LABS: Basophils Percent Auto 0.2 % (0.2-1.2); Hematocrit 37.7 % (37.0-47.0); Hemoglobin 12.4 g/dL (12.0-15.0); Immature Granulocyte Absolute 0.06 K/mm3 (0.00-0.031); Immature Granulocyte Percent A 0.4 % (0-0.5); Lymphocytes Absolute Auto 2.19 K/mm3 (0.9-3.2); Lymphocytes Percent Auto 16.2 % (18.3-44.2); Mean Corpuscular HGB Conc 32.9 g/dl (32-36); Mean Corpuscular Volume 88.3 fl (80-100); Mean Platelet Volume 9.1 fl (7.4-10.4); Monocytes Absolute Auto 1.3 K/mm3 (0.1-0.6); Monocytes Percent Auto 9.3 % (2.6-8.5); Neutrophils Percent Auto 73.9 % (45.5-73.1); Platelet Count Result 305 k/mm3 (150-375); Red Blood Count 4.27 M/mm3 (4.2-5.4); Red Cell Distribution Width 12.7 % (11.5-14.5); White Blood Count 13.5 K/mm3 (4.5-10.0)
[2021-05-03 12:22] LABS: Anion Gap 12 mmol/L (8-16); Blood Urea Nitrogen 25 mg/dL (7-17); Calcium 9.5 mg/dL (8.4-10.2); Carbon Dioxide 27 mmol/L (22-30); Chloride 100 mmol/L (98-107); Estimated Glomerular Filt Rate 48; Glucose 136 mg/dL (65-105); Sodium 139 mmol/L (137-145)
[2021-05-03 14:00] VITALS: BP 138/54; PULSE 60; RESP 14; TEMP 36.3; O2SAT 97
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
[2021-05-03] MEDS: hydrOXYzine pamoate 25 MG CAPSULE PO (20:09)
[2021-05-03] MEDS: MELATONIN 5 MG TABLET PO (20:10)
[2021-05-03] MEDS: ATORVASTATIN 40 MG TABLET PO (20:10)
[2021-05-03] MEDS: DULoxetine HCL 30 MG CAPSULE.DR PO (20:11)
[2021-05-03] MEDS: ENOXAPARIN 40 MG/0.4 ML SYRINGE SUB-Q (20:16)
[2021-05-03 22:00] VITALS: BP 171/59; PULSE 93; RESP 18; TEMP 36.2; O2SAT 93
[2021-05-04] MEDS: ALBUTEROL SULFATE (*SP) AEROSOL 1 PUFF 2 PUFF INHALATION ×4 (02:20→20:34)
[2021-05-04 06:00] VITALS: BP 164/87; PULSE 62; RESP 18; TEMP 36.4; O2SAT 92
[2021-05-04] MEDS: oxyCODONE/ACETAMINOPHEN (*CRX) 5-325 MG TABLET 1 TABLET PO ×2 (06:29→14:01)
[2021-05-04] MEDS: oxyCODONE HCL (*CRX) 5 MG TAB IR PO ×2 (06:29→14:00)
[2021-05-04] MEDS: hydroCHLOROthiazide 25 MG TABLET PO (09:09)
[2021-05-04] MEDS: SENNA/DOCUSATE SODIUM TABLET 1 TAB PO ×2 (09:09→20:32)
[2021-05-04] MEDS: CEPHALEXIN 500 MG CAPSULE PO ×2 (09:09→20:32)
[2021-05-04] MEDS: MULTIVITAMINS /C LUTEIN (CENTRUM SILVER) TABLET *BKC 1 TAB PO (09:09)
[2021-05-04] MEDS: LIDOCAINE 5% PATCH 3 PATCH TRANSDERM (09:09)
[2021-05-04] MEDS: ASPIRIN 325 MG TABLET PO (09:09)
[2021-05-04] MEDS: TIZANIDINE HCL 2 MG TABLET PO (09:09)
[2021-05-04 09:10] VITALS: PULSE 66
[2021-05-04] MEDS: METOPROLOL TARTRATE 50 MG TAB PO ×2 (09:10→20:32)
[2021-05-04] MEDS: amLODIPine BESYLATE 5 MG TABLET 10 MG PO (09:10)
--- NOTE | 2021-05-04 13:14 | PCDIET ---
Nutrition Follow-Up Complete: Nutrition Diagnosis: Inadequate oral intake related to poor appetite as evidenced by patient statements, intakes less than 50% at meals, documented weight loss. Nutrition Goal: Patient will consume 50% of meals/supplements or greater and maintain weight. Goal met. Patient consumed an average of 66% of recorded meals since last review on regular diet. Does not care for Frozen Nutritional Treat but will take on occasion. Recommend decreasing to 1x per day to which patient agreeable. Last recorded weight is 66.9 kg. Recommend obtaining new weight. Bowel Motility: Patient c/o constipation with documented BM on 05/03/21. Senna ordered. Fruits and vegetables encouraged. Labs Reviewed: WBC (13.5), Glu (136), BUN (25), Cr (1.1) Meds Noted: Albuterol, Norvasc, Lipitor, Oscal 500 + D, Keflex, Hydrochlorothiazide, Lopressor, MVI/minerals, Roxicodone, Senna Additional Notes: No skin breakdown documented. Patient reports daughter is bringing her a hamburger for lunch today and often brings her food from outside the hospital. Will continue to monitor with same goal. Nutrition Monitoring and Evaluation: Follow up every 7 days.
[2021-05-04 14:00] VITALS: BP 139/57; PULSE 85; RESP 16; TEMP 36.8; O2SAT 93
[2021-05-04 20:32] VITALS: PULSE 88
[2021-05-04] MEDS: ATORVASTATIN 40 MG TABLET PO (20:32)
[2021-05-04] MEDS: hydrOXYzine pamoate 25 MG CAPSULE PO (20:32)
[2021-05-04] MEDS: DULoxetine HCL 30 MG CAPSULE.DR PO (20:32)
[2021-05-04] MEDS: MELATONIN 5 MG TABLET PO (20:33)
[2021-05-04] MEDS: ENOXAPARIN 40 MG/0.4 ML SYRINGE SUB-Q (20:33)
[2021-05-04 22:00] VITALS: BP 142/56; PULSE 71; RESP 16; TEMP 36.3; O2SAT 92
[2021-05-05] VITALS (7 sets, daily range): BP systolic 111–141; BP diastolic 51–53; PULSE 65–69; RESP 16–18; TEMP 36.1–36.4; O2SAT 92–95
[2021-05-05] MEDS: ALBUTEROL SULFATE (*SP) AEROSOL 1 PUFF 2 PUFF INHALATION ×4 (02:40→20:01)
[2021-05-05 05:47] LABS: Basophils Percent Auto 0.2 % (0.2-1.2); Hematocrit 32.2 % (37.0-47.0); Hemoglobin 11.1 g/dL (12.0-15.0); Immature Granulocyte Absolute 0.05 K/mm3 (0.00-0.031); Immature Granulocyte Percent A 0.4 % (0-0.5); Lymphocytes Absolute Auto 3.49 K/mm3 (0.9-3.2); Lymphocytes Percent Auto 27.3 % (18.3-44.2); Mean Corpuscular HGB Conc 34.5 g/dl (32-36); Mean Corpuscular Hemoglobin 29.9 pg (26-34); Mean Corpuscular Volume 86.8 fl (80-100); Mean Platelet Volume 9.5 fl (7.4-10.4); Monocytes Absolute Auto 1.3 K/mm3 (0.1-0.6); Monocytes Percent Auto 10.2 % (2.6-8.5); Neutrophils Absolute Auto 7.9 K/mm3 (1.3-6.7); Neutrophils Percent Auto 61.9 % (45.5-73.1); Platelet Count Result 262 k/mm3 (150-375); Red Blood Count 3.71 M/mm3 (4.2-5.4); Red Cell Distribution Width 12.7 % (11.5-14.5); White Blood Count 12.8 K/mm3 (4.5-10.0)
[2021-05-05 06:03] LABS: Anion Gap 9 mmol/L (8-16); Blood Urea Nitrogen 25 mg/dL (7-17); Calcium 9.1 mg/dL (8.4-10.2); Carbon Dioxide 29 mmol/L (22-30); Chloride 99 mmol/L (98-107); Estimated Glomerular Filt Rate 53; Glucose 113 mg/dL (65-105); Potassium 3.2 mmol/L (3.4-5.0); Sodium 137 mmol/L (137-145)
[2021-05-05] MEDS: hydroCHLOROthiazide 25 MG TABLET PO (09:32)
[2021-05-05] MEDS: MULTIVITAMINS /C LUTEIN (CENTRUM SILVER) TABLET *BKC 1 TAB PO (09:32)
[2021-05-05] MEDS: amLODIPine BESYLATE 5 MG TABLET 10 MG PO (09:33)
[2021-05-05] MEDS: ASPIRIN 325 MG TABLET PO (09:33)
[2021-05-05] MEDS: METOPROLOL TARTRATE 50 MG TAB PO ×2 (09:33→20:03)
[2021-05-05] MEDS: SENNA/DOCUSATE SODIUM TABLET 1 TAB PO ×2 (09:34→20:03)
[2021-05-05] MEDS: TIZANIDINE HCL 2 MG TABLET PO (09:34)
[2021-05-05] MEDS: CEPHALEXIN 500 MG CAPSULE PO ×2 (09:34→20:04)
[2021-05-05] MEDS: LIDOCAINE 5% PATCH 3 PATCH TRANSDERM (09:34)
[2021-05-05] MEDS: POTASSIUM CHLORIDE 20 MEQ TABLET 40 MEQ PO (09:48)
[2021-05-05] MEDS: ENOXAPARIN 40 MG/0.4 ML SYRINGE SUB-Q (20:01)
[2021-05-05] MEDS: hydrOXYzine pamoate 25 MG CAPSULE PO (20:01)
[2021-05-05] MEDS: ATORVASTATIN 40 MG TABLET PO (20:02)
[2021-05-05] MEDS: DULoxetine HCL 30 MG CAPSULE.DR PO (20:03)
[2021-05-05] MEDS: MELATONIN 5 MG TABLET PO (20:03)
[2021-05-05] MEDS: oxyCODONE HCL (*CRX) 5 MG TAB IR PO (21:25)
[2021-05-05] MEDS: oxyCODONE/ACETAMINOPHEN (*CRX) 5-325 MG TABLET 1 TABLET PO (21:27)
[2021-05-06 05:59] VITALS: BP 137/60; PULSE 65; RESP 16; TEMP 36.3; O2SAT 92
[2021-05-06] MEDS: ALBUTEROL SULFATE (*SP) AEROSOL 1 PUFF 2 PUFF INHALATION ×3 (12:19→20:41)
[2021-05-06] MEDS: amLODIPine BESYLATE 5 MG TABLET 10 MG PO (12:20)
[2021-05-06] MEDS: SENNA/DOCUSATE SODIUM TABLET 1 TAB PO ×2 (12:20→20:45)
[2021-05-06] MEDS: CEPHALEXIN 500 MG CAPSULE PO ×2 (12:20→20:42)
[2021-05-06] MEDS: ASPIRIN 325 MG TABLET PO (12:20)
[2021-05-06 12:21] VITALS: PULSE 65
[2021-05-06] MEDS: TIZANIDINE HCL 2 MG TABLET PO (12:21)
[2021-05-06] MEDS: MULTIVITAMINS /C LUTEIN (CENTRUM SILVER) TABLET *BKC 1 TAB PO (12:21)
[2021-05-06] MEDS: hydroCHLOROthiazide 25 MG TABLET PO (12:21)
[2021-05-06] MEDS: LIDOCAINE 5% PATCH 3 PATCH TRANSDERM (12:21)
[2021-05-06] MEDS: METOPROLOL TARTRATE 50 MG TAB PO ×2 (12:21→20:44)
[2021-05-06] MEDS: hydrOXYzine pamoate 25 MG CAPSULE PO ×2 (12:22→20:42)
[2021-05-06] MEDS: ACETAMINOPHEN 500 MG TABLET PO (12:22)
[2021-05-06] MEDS: oxyCODONE HCL (*CRX) 5 MG TAB IR PO ×2 (12:27→20:45)
[2021-05-06] MEDS: oxyCODONE/ACETAMINOPHEN (*CRX) 5-325 MG TABLET 1 TABLET PO ×2 (12:28→20:45)
[2021-05-06 14:00] VITALS: BP 119/63; PULSE 58; RESP 18; TEMP 36.4; O2SAT 95
[2021-05-06] MEDS: DULoxetine HCL 30 MG CAPSULE.DR PO (20:42)
[2021-05-06] MEDS: ATORVASTATIN 40 MG TABLET PO (20:42)
[2021-05-06] MEDS: ENOXAPARIN 40 MG/0.4 ML SYRINGE SUB-Q (20:43)
[2021-05-06 20:44] VITALS: PULSE 60
[2021-05-06] MEDS: MELATONIN 5 MG TABLET PO (20:44)
[2021-05-06 21:49] VITALS: BP 124/53; PULSE 73; RESP 17; TEMP 36.6; O2SAT 98
[2021-05-07 05:47] VITALS: BP 153/62; PULSE 71; RESP 18; TEMP 37.1; O2SAT 95
[2021-05-07] MEDS: ASPIRIN 325 MG TABLET PO (08:34)
[2021-05-07] MEDS: ALBUTEROL SULFATE (*SP) AEROSOL 1 PUFF 2 PUFF INHALATION ×3 (08:34→20:26)
[2021-05-07] MEDS: amLODIPine BESYLATE 5 MG TABLET 10 MG PO (08:34)
[2021-05-07] MEDS: LIDOCAINE 5% PATCH 3 PATCH TRANSDERM (08:35)
[2021-05-07] MEDS: CEPHALEXIN 500 MG CAPSULE PO (08:35)
[2021-05-07] MEDS: hydroCHLOROthiazide 25 MG TABLET PO (08:35)
[2021-05-07 08:36] VITALS: PULSE 71
[2021-05-07] MEDS: MULTIVITAMINS /C LUTEIN (CENTRUM SILVER) TABLET *BKC 1 TAB PO (08:36)
[2021-05-07] MEDS: TIZANIDINE HCL 2 MG TABLET PO (08:36)
[2021-05-07] MEDS: METOPROLOL TARTRATE 50 MG TAB PO ×2 (08:36→20:27)
[2021-05-07] MEDS: oxyCODONE/ACETAMINOPHEN (*CRX) 5-325 MG TABLET 1 TABLET PO (08:47)
[2021-05-07] MEDS: oxyCODONE HCL (*CRX) 5 MG TAB IR PO (08:48)
[2021-05-07] MEDS: SENNA/DOCUSATE SODIUM TABLET 1 TAB PO ×2 (08:51→20:28)
[2021-05-07 14:00] VITALS: BP 123/95; PULSE 66; RESP 18; TEMP 36.2; O2SAT 100
--- NOTE | 2021-05-07 15:55 | PM.IMPN ---
Progress Note: A&P Assessment and Plan (1) CVA (cerebral vascular accident): Code(s): I63.9 - Cerebral infarction, unspecified Status: Acute Assessment and Plan: s/p acute right-sided CVA 04/21/21 at [facility] in [place] admitted to [facility] 04/25/21. With left-sided weakness but seems to be improving some. Continue PT/OT/ST. (2) Hypertension: Code(s): I10 - Essential (primary) hypertension Status: Chronic Assessment and Plan: BPs reviewed; overall stable maintained on her home amlodipine, HCTZ, metoprolol. Monitor BP and adjust treatment as needed. (3) Anxiety: Code(s): F41.9 - Anxiety disorder, unspecified Status: Chronic Assessment and Plan: Continue home Cymbalta. (4) Hyperlipidemia: Code(s): E78.5 - Hyperlipidemia, unspecified Status: Chronic Assessment and Plan: Continue home statin therapy. (5) UTI (urinary tract infection): Code(s): N39.0 - Urinary tract infection, site not specified Status: Acute Assessment and Plan: Positive UA with dysuria. She was treated with a 5- day course of Keflex. Urine culture consistent with contamination. No further symptoms today. (6) Leukocytosis: Code(s): D72.829 - Elevated white blood cell count, unspecified Status: Acute Assessment and Plan: May have been related to above. Atelectasis could contribute. CXR with left lower lobe atelectasis vs. PNA. Patient does not have a cough or shortness of breath, afebrile - likely atelectasis but continue to monitor for symptoms. Encouraged incentive spirometry. Monitor CBC, vital signs. (7) Atelectasis: Code(s): J98.11 - Atelectasis Status: Acute Assessment and Plan: IS encouraged. Subjective Date/time seen: 05/07/21 1500 Interval history: Ms. Nesbitt (goes by John Lopez ) is a very pleasant 80yo F admitted to the rehab center after acute stroke. She has residual left sided weakness but overall seems to be doing pretty well. Denies urinary symptoms. She denies chest pain or shortness of breath. Tolerating meals without nausea or vomiting. She is visiting with OT and her daughter, Rakel, at the bedside. Review of Systems Review of Systems: All systems reviewed & are unremarkable except as noted in HPI and below Exam Narrative: Exam Narrative: General: Female resting comfortably sitting up in wheelchair in no acute distress. HEENT: Normocephalic, EOMI, oral mucosa moist. Left-sided facial asymmetry is noted. Cardiovascular: Rate and rhythm are regular. Respiratory: Lungs clear to auscultation bilaterally. Respirations even and non-labored. Tolerating room air. Abdomen: Soft, non-tender, non-distended, bowel sounds present. Extremities: Peripheral pulses intact. No edema or pain to palpation. Neuro: Awake and alert. Answering questions appropriately. Left facial asymmetry and left upper and lower extremity weakness is noted. Speech is clear. Objective Data Vital Signs Vital Signs: Last Vital Signs Temp 97.2 F L 05/07/21 14:00 Pulse 66 05/07/21 14:00 Resp 18 05/07/21 14:00 BP 123/95 H 05/07/21 14:00 Pulse Ox 100 05/07/21 14:00 Intake/Output Intake/Output: Intake & Output 05/04/21 05/05/21 05/06/2105/07/21 23:59 23:59 23:59 23:59 Intake Total 600 360 290 480 Balance 600 360 290 480 Meds/Results Medications: Active Medications Generic Name Dose Route Start Last Admin Trade Name Freq PRN Reason Stop Dose Admin Acetaminophen 500 mg 04/27/21 08:50 05/06/21 12:22 Acetaminophen 500 Mg Tablet PO 500 mg BID PRN Administration Mild Pain (1-3) or Fever Albuterol 2 puff 05/02/21 20:00 05/07
[2021-05-07] MEDS: hydrOXYzine pamoate 25 MG CAPSULE PO (20:26)
[2021-05-07] MEDS: ENOXAPARIN 40 MG/0.4 ML SYRINGE SUB-Q (20:26)
[2021-05-07 20:27] VITALS: PULSE 74
[2021-05-07] MEDS: DULoxetine HCL 30 MG CAPSULE.DR PO (20:27)
[2021-05-07] MEDS: ATORVASTATIN 40 MG TABLET PO (20:28)
[2021-05-07] MEDS: MELATONIN 5 MG TABLET PO (20:29)
[2021-05-07 22:00] VITALS: BP 153/56; PULSE 74; RESP 18; TEMP 35.9; O2SAT 100
[2021-05-08 04:55] LABS: Basophils Percent Auto 0.4 % (0.2-1.2); Hematocrit 32.5 % (37.0-47.0); Hemoglobin 10.9 g/dL (12.0-15.0); Immature Granulocyte Absolute 0.04 K/mm3 (0.00-0.031); Immature Granulocyte Percent A 0.4 % (0-0.5); Lymphocytes Absolute Auto 2.86 K/mm3 (0.9-3.2); Lymphocytes Percent Auto 26.1 % (18.3-44.2); Mean Corpuscular HGB Conc 33.5 g/dl (32-36); Mean Corpuscular Hemoglobin 29.5 pg (26-34); Mean Corpuscular Volume 88.1 fl (80-100); Monocytes Absolute Auto 1.1 K/mm3 (0.1-0.6); Monocytes Percent Auto 9.8 % (2.6-8.5); Neutrophils Percent Auto 63.3 % (45.5-73.1); Platelet Count Result 280 k/mm3 (150-375); Red Blood Count 3.69 M/mm3 (4.2-5.4); Red Cell Distribution Width 12.6 % (11.5-14.5)
[2021-05-08 05:06] LABS: Anion Gap 7 mmol/L (8-16); Blood Urea Nitrogen 26 mg/dL (7-17); Carbon Dioxide 28 mmol/L (22-30); Chloride 101 mmol/L (98-107); Estimated Glomerular Filt Rate 53; Glucose 126 mg/dL (65-105); Potassium 3.7 mmol/L (3.4-5.0); Sodium 136 mmol/L (137-145)
[2021-05-08 06:00] VITALS: BP 143/50; PULSE 68; RESP 18; TEMP 36.4; O2SAT 94
[2021-05-08] MEDS: LIDOCAINE 5% PATCH 3 PATCH TRANSDERM (08:22)
[2021-05-08] MEDS: ALBUTEROL SULFATE (*SP) AEROSOL 1 PUFF 2 PUFF INHALATION ×3 (08:22→20:31)
[2021-05-08 08:23] VITALS: PULSE 68
[2021-05-08] MEDS: TIZANIDINE HCL 2 MG TABLET PO (08:23)
[2021-05-08] MEDS: METOPROLOL TARTRATE 50 MG TAB PO ×2 (08:23→20:31)
[2021-05-08] MEDS: amLODIPine BESYLATE 5 MG TABLET 10 MG PO (08:23)
[2021-05-08] MEDS: hydroCHLOROthiazide 25 MG TABLET PO (08:23)
[2021-05-08] MEDS: ASPIRIN 325 MG TABLET PO (08:23)
[2021-05-08] MEDS: SENNA/DOCUSATE SODIUM TABLET 1 TAB PO ×2 (08:23→20:31)
[2021-05-08] MEDS: MULTIVITAMINS /C LUTEIN (CENTRUM SILVER) TABLET *BKC 1 TAB PO (08:23)
[2021-05-08] MEDS: hydrOXYzine pamoate 25 MG CAPSULE PO ×2 (08:32→17:45)
[2021-05-08 13:37] VITALS: BP 147/52; PULSE 67; RESP 18; TEMP 36.4; O2SAT 97
--- NOTE | 2021-05-08 15:31 | PM.IMPN ---
Progress Note: A&P Assessment and Plan (1) CVA (cerebral vascular accident): Code(s): I63.9 - Cerebral infarction, unspecified Status: Acute Assessment and Plan: s/p acute right-sided CVA 04/21/21 at [facility] in [place] [facility]. -Continues to have left-sided weakness but seems to be improving. - Continue PT/OT/ST. (2) Hypertension: Code(s): I10 - Essential (primary) hypertension Status: Chronic Assessment and Plan: Last bp 147/52 -Continue amlodipine, HCTZ, metoprolol. -Monitor BP and adjust treatment as needed. (3) Anxiety: Code(s): F41.9 - Anxiety disorder, unspecified Status: Chronic Assessment and Plan: Continue home Cymbalta. -She is feeling less anxious with the cymbalta (4) Hyperlipidemia: Code(s): E78.5 - Hyperlipidemia, unspecified Status: Chronic Assessment and Plan: Continue home statin therapy (5) UTI (urinary tract infection): Code(s): N39.0 - Urinary tract infection, site not specified Status: Acute Assessment and Plan: Resolved - She was treated with a 5- day course of Keflex -Urine culture consistent with contamination. No further symptoms today. (6) Leukocytosis: Code(s): D72.829 - Elevated white blood cell count, unspecified Status: Acute Assessment and Plan: Slightly elevated, no infection suspected -CXR with left lower lobe atelectasis vs. PNA. Patient does not have a cough or shortness of breath, afebrile -Monitor for other signs of infection such as fever or worsening symptoms (7) Atelectasis: Code(s): J98.11 - Atelectasis Status: Acute Assessment and Plan: IS encouraged Time Spent With Patient Time with patient: 25 - 35 minutes Subjective Date/time seen: 05/08/21 15:31 Interval history: Pt is a 80-year-old female here for CVA. Patient was seen today and states she is getting stronger every day. 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 She is eating and drinking well and doing well with therapy. She does not so constipated. She has no chest pain, shortness of breath, nausea, vomiting, fevers, chills or abdominal pain. Review of Systems Review of Systems: All systems reviewed & are unremarkable except as noted in HPI and below Exam Narrative: Exam Narrative: General: Well developed well nourished patient in NAD HEENT: normocephalic Neck: supple Neuro: Alert and oriented x4. Decreased pollution control engineer strength in the left hand. Slight left sided facial droop with slurred speech. Strength 5/5 in the LE CV:RRR Resp:CTA Abd: Soft, non distended. No pain to palpation. Positive bowel sounds Extremities: No swelling, erythema, or pain to palpation. Objective Data Vital Signs Vital Signs: Vital Signs - 24 hr 05/07/21 20:27 05/07/21 22:00 05/08/21 06:00 Temperature 96.7 F L 97.5 F L Pulse Rate 74 74 68 Respiratory Rate 18 18 Blood Pressure 153/56 H 143/50 H Pulse Oximetry 100 94 05/08/21 08:23 05/08/21 13:37 Temperature 97.6 F Pulse Rate 68 67 Respiratory Rate 18 Blood Pressure 147/52 H Pulse Oximetry 97 Intake/Output Intake/Output: Intake & Output 05/05/21 05/06/21 05/07/21 05/08/21 23:59 23:59 23:59 23:59 Intake Total 360 290 720 360 Balance 360 290 720 360 Meds/Results Medications: Active Medications Generic Name Dose Route Start Last Admin Trade Name Freq PRN Reason Stop Dose Admin Acetaminophen 500 mg 04/27/21 08:50 05/06/21 12:22 Acetaminophen 500 Mg Tablet PO 500 mg BID PRN Administration Mild Pain (1-3) or Fever Albuterol 2 puff 05/02/21 20:00 05/08/21 13:44 Albuterol Sulfate (*Sp) Aerosol 1 Puff INHALATION 2 puff Q6HRT JESSICA Administration Amlodipine Besylate 10 mg 04/25/21 09:00 05/08/21 08:23 Amlodipine Besylate 5 Mg Tablet PO 10 mg DAILY JESSICA Administration Aspi
[2021-05-08] MEDS: ACETAMINOPHEN 500 MG TABLET PO (17:45)
[2021-05-08] MEDS: ATORVASTATIN 40 MG TABLET PO (20:31)
[2021-05-08] MEDS: ENOXAPARIN 40 MG/0.4 ML SYRINGE SUB-Q (20:31)
[2021-05-08] MEDS: DULoxetine HCL 30 MG CAPSULE.DR PO (20:31)
[2021-05-08] MEDS: MELATONIN 5 MG TABLET PO (20:32)
[2021-05-08 22:00] VITALS: BP 146/54; PULSE 65; RESP 18; TEMP 36.2; O2SAT 94
[2021-05-08] MEDS: oxyCODONE/ACETAMINOPHEN (*CRX) 5-325 MG TABLET 1 TABLET PO (22:25)
[2021-05-08] MEDS: oxyCODONE HCL (*CRX) 5 MG TAB IR PO (22:25)
[2021-05-09 05:42] LABS: Basophils Percent Auto 0.4 % (0.2-1.2); Eosinophils Percent Auto 0.1 % (0-4.4); Hematocrit 33.1 % (37.0-47.0); Hemoglobin 11.1 g/dL (12.0-15.0); Immature Granulocyte Absolute 0.03 K/mm3 (0.00-0.031); Immature Granulocyte Percent A 0.3 % (0-0.5); Lymphocytes Absolute Auto 2.39 K/mm3 (0.9-3.2); Lymphocytes Percent Auto 24.7 % (18.3-44.2); Mean Corpuscular HGB Conc 33.5 g/dl (32-36); Mean Corpuscular Hemoglobin 29.3 pg (26-34); Mean Corpuscular Volume 87.3 fl (80-100); Neutrophils Absolute Auto 6.3 K/mm3 (1.3-6.7); Neutrophils Percent Auto 64.5 % (45.5-73.1); Platelet Count Result 298 k/mm3 (150-375); Red Blood Count 3.79 M/mm3 (4.2-5.4); Red Cell Distribution Width 12.6 % (11.5-14.5); White Blood Count 9.7 K/mm3 (4.5-10.0)
[2021-05-09 05:52] LABS: Alanine Aminotransferase 23 U/L (4-35); Albumin Level 3.7 g/dL (3.5-5.1); Alkaline Phosphatase 114 U/L (38-126); Anion Gap 10 mmol/L (8-16); Aspartate Amino Transferase 38 U/L (14-36); Bilirubin,Total 0.6 mg/dL (0.2-1.3); Blood Urea Nitrogen 27 mg/dL (7-17); Calcium 9.3 mg/dL (8.4-10.2); Carbon Dioxide 28 mmol/L (22-30); Chloride 100 mmol/L (98-107); Estimated Glomerular Filt Rate 60; Glucose 132 mg/dL (65-105); Potassium 3.1 mmol/L (3.4-5.0); Sodium 138 mmol/L (137-145)
[2021-05-09 06:00] VITALS: BP 123/49; PULSE 64; RESP 18; TEMP 36.1; O2SAT 97
[2021-05-09] MEDS: ALBUTEROL SULFATE (*SP) AEROSOL 1 PUFF 2 PUFF INHALATION ×3 (08:48→20:15)
[2021-05-09] MEDS: ASPIRIN 325 MG TABLET PO (08:48)
[2021-05-09 08:49] VITALS: PULSE 64
[2021-05-09] MEDS: SENNA/DOCUSATE SODIUM TABLET 1 TAB PO ×2 (08:49→20:15)
[2021-05-09] MEDS: METOPROLOL TARTRATE 50 MG TAB PO ×2 (08:49→20:15)
[2021-05-09] MEDS: MULTIVITAMINS /C LUTEIN (CENTRUM SILVER) TABLET *BKC 1 TAB PO (08:49)
[2021-05-09] MEDS: TIZANIDINE HCL 2 MG TABLET PO (08:49)
[2021-05-09] MEDS: amLODIPine BESYLATE 5 MG TABLET 10 MG PO (08:49)
[2021-05-09] MEDS: hydroCHLOROthiazide 25 MG TABLET PO (08:49)
[2021-05-09] MEDS: LIDOCAINE 5% PATCH 3 PATCH TRANSDERM (08:50)
[2021-05-09] MEDS: POTASSIUM CHLORIDE 20 MEQ TABLET 40 MEQ PO (08:54)
[2021-05-09] MEDS: hydrOXYzine pamoate 25 MG CAPSULE PO (09:00)
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
[2021-05-09] MEDS: oxyCODONE HCL (*CRX) 5 MG TAB IR PO ×2 (10:56→20:14)
[2021-05-09] MEDS: oxyCODONE/ACETAMINOPHEN (*CRX) 5-325 MG TABLET 1 TABLET PO ×2 (10:57→20:13)
[2021-05-09 14:00] VITALS: BP 119/56; PULSE 92; RESP 16; TEMP 36.3; O2SAT 93
[2021-05-09] MEDS: CALCIUM CARBONATE (TUMS) 500 MG (200 MG ELEMENTAL) PO (20:11)
[2021-05-09 20:15] VITALS: PULSE 88
[2021-05-09] MEDS: DULoxetine HCL 30 MG CAPSULE.DR PO (20:15)
[2021-05-09] MEDS: ENOXAPARIN 40 MG/0.4 ML SYRINGE SUB-Q (20:15)
[2021-05-09] MEDS: ATORVASTATIN 40 MG TABLET PO (20:15)
[2021-05-09] MEDS: MELATONIN 5 MG TABLET PO (20:15)
[2021-05-09 22:00] VITALS: BP 131/44; PULSE 65; RESP 16; TEMP 36.6; O2SAT 93
[2021-05-10 06:00] VITALS: BP 150/40; PULSE 62; RESP 16; TEMP 36.4; O2SAT 93
[2021-05-10 08:00] VITALS: PULSE 62; RESP 16; O2SAT 93
[2021-05-10 08:08] LABS: Alanine Aminotransferase 24 U/L (4-35); Albumin Level 3.9 g/dL (3.5-5.1); Alkaline Phosphatase 121 U/L (38-126); Anion Gap 10 mmol/L (8-16); Aspartate Amino Transferase 38 U/L (14-36); Bilirubin,Total 0.6 mg/dL (0.2-1.3); Blood Urea Nitrogen 29 mg/dL (7-17); Calcium 9.5 mg/dL (8.4-10.2); Carbon Dioxide 30 mmol/L (22-30); Chloride 98 mmol/L (98-107); Estimated Glomerular Filt Rate 53; Glucose 119 mg/dL (65-105); Potassium 4.1 mmol/L (3.4-5.0); Sodium 138 mmol/L (137-145)
[2021-05-10 08:48] VITALS: PULSE 62
[2021-05-10] MEDS: amLODIPine BESYLATE 5 MG TABLET 10 MG PO (08:48)
[2021-05-10] MEDS: METOPROLOL TARTRATE 50 MG TAB PO ×2 (08:48→20:16)
[2021-05-10] MEDS: ASPIRIN 325 MG TABLET PO (08:48)
[2021-05-10] MEDS: hydrOXYzine pamoate 25 MG CAPSULE PO (08:49)
[2021-05-10] MEDS: SENNA/DOCUSATE SODIUM TABLET 1 TAB PO ×2 (08:49→20:18)
[2021-05-10] MEDS: TIZANIDINE HCL 2 MG TABLET PO (08:49)
[2021-05-10] MEDS: hydroCHLOROthiazide 25 MG TABLET PO (08:49)
[2021-05-10] MEDS: ALBUTEROL SULFATE (*SP) AEROSOL 1 PUFF 2 PUFF INHALATION ×3 (08:50→20:15)
[2021-05-10] MEDS: LIDOCAINE 5% PATCH 3 PATCH TRANSDERM (08:50)
[2021-05-10] MEDS: MULTIVITAMINS /C LUTEIN (CENTRUM SILVER) TABLET *BKC 1 TAB PO (08:50)
[2021-05-10] MEDS: oxyCODONE HCL (*CRX) 5 MG TAB IR PO (08:51)
[2021-05-10] MEDS: oxyCODONE/ACETAMINOPHEN (*CRX) 5-325 MG TABLET 1 TABLET PO ×2 (08:51→20:16)
[2021-05-10] MEDS: CALCIUM CARBONATE (TUMS) 500 MG (200 MG ELEMENTAL) PO (10:49)
[2021-05-10 10:50] LABS: Magnesium 1.8 mg/dL (1.6-2.3)
[2021-05-10 10:59] LABS: Hemoglobin A1C 6.4 % (<5.7)
--- NOTE | 2021-05-10 12:45 | PCDIET ---
Nutrition Follow-Up Complete: Nutrition Diagnosis: Inadequate oral intake related to poor appetite as evidenced by patient statements, intakes less than 50% at meals, documented weight loss. Nutrition Goal: Patient will consume 50% of meals/supplements or greater and maintain weight. Goal met. Patient with average recorded intake of 67% of meals since last review. Does report family frequently brings in lunch meal. Continues on regular diet with Frozen Nutritional Treat 1x daily. Last recorded weight is 66.9 kg. Recommend obtaining new weight. Bowel Motility: Last documented BM on 05/09/21. Labs Reviewed: RBC (3.79), Hgb (11.1), Hct (33.1), Glu (119), BUN (29) Meds Noted: Albuterol, Norvasc, Lipitor, Tums, Oscal + D, Hydrochlorothiazide, Lopressor, Centrum, KCl, Senna Additional Notes: No documented skin breakdown. Patient scheduled for discharge tomorrow, 05/11/21. Will continue to monitor with same goal if patient remains in house. Nutrition Monitoring and Evaluation: Follow up every 7 days.
--- NOTE | 2021-05-10 13:13 | PM.IMPN ---
Progress Note: A&P Assessment and Plan (1) CVA (cerebral vascular accident): Code(s): I63.9 - Cerebral infarction, unspecified Status: Acute Assessment and Plan: s/p acute right-sided CVA 04/21/21 at [facility] in [place] admitted to [facility] 04/25/21. -Continues to have left-sided weakness but seems to be improving. - Continue PT/OT/ST. (2) Hypertension: Code(s): I10 - Essential (primary) hypertension Status: Chronic Assessment and Plan: Last bp 150/40 -Continue amlodipine ( increased dose), HCTZ, metoprolol. -Monitor BP and adjust treatment as needed. (3) Anxiety: Code(s): F41.9 - Anxiety disorder, unspecified Status: Chronic Assessment and Plan: Continue home Cymbalta. -She is feeling less anxious with the cymbalta (4) Hyperlipidemia: Code(s): E78.5 - Hyperlipidemia, unspecified Status: Chronic Assessment and Plan: Continue home statin therapy (5) UTI (urinary tract infection): Code(s): N39.0 - Urinary tract infection, site not specified Status: Acute Assessment and Plan: Resolved - She was treated with a 5- day course of Keflex -Urine culture consistent with contamination. No further symptoms today. (6) Leukocytosis: Code(s): D72.829 - Elevated white blood cell count, unspecified Status: Acute Assessment and Plan: Resolved -CXR with left lower lobe atelectasis vs. PNA. 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 Patient was seen today and states she is getting stronger every day. 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 She is eating and drinking well and doing well with therapy. She has no chest pain, shortness of breath, nausea, vomiting, fevers, chills or abdominal pain. she is ready to get home tomorrow. Her anxiety is a little high with the transition but overall manageable. She states she has been told in the past that she is prediabetic. Her was diabetic and she knows a lot about the disease. She is going to follow-up with her primary care physician Exam Narrative: Exam Narrative: General: Well developed well nourished patient in NAD HEENT: normocephalic Neck: supple Neuro: Alert and oriented x4. Decreased blending tank tender helper strength in the left hand. Slight left sided facial droop with slurred speech. Strength 5/5 in the LE CV:RRR Resp:CTA Abd: Soft, non distended. No pain to palpation. Positive bowel sounds Extremities: No swelling, erythema, or pain to palpation. Objective Data Vital Signs Vital Signs: Vital Signs - 24 hr 05/09/21 14:00 05/09/21 20:15 05/09/21 22:00 Temperature 97.4 F L 97.9 F Pulse Rate 92 88 65 Respiratory Rate 16 16 Blood Pressure 119/56 L 131/44 L Pulse Oximetry 93 93 05/10/21 06:00 05/10/21 08:00 05/10/21 08:48 Temperature 97.6 F Pulse Rate 62 62 62 Respiratory Rate 16 16 Blood Pressure 150/40 H Pulse Oximetry 93 93 Intake/Output Intake/Output: Intake & Output 05/07/21 05/08/21 05/09/21 05/10/21 23:59 23:59 23:59 23:59 Intake Total 720 600 360 100 Balance 720 600 360 100 Meds/Results Medications: Active Medications Generic Name Dose Route Start Last Admin Trade Name
[2021-05-10 14:00] VITALS: BP 128/50; PULSE 59; RESP 20; TEMP 36.3; O2SAT 97
[2021-05-10] MEDS: ENOXAPARIN 40 MG/0.4 ML SYRINGE SUB-Q (20:15)
[2021-05-10 20:16] VITALS: PULSE 70
[2021-05-10] MEDS: MELATONIN 5 MG TABLET PO (20:16)
[2021-05-10] MEDS: DULoxetine HCL 30 MG CAPSULE.DR PO (20:16)
[2021-05-10] MEDS: ATORVASTATIN 40 MG TABLET PO (20:17)
[2021-05-10 22:00] VITALS: BP 127/33; PULSE 60; RESP 18; TEMP 35.9; O2SAT 93
[2021-05-11] MEDS: ALBUTEROL SULFATE (*SP) AEROSOL 1 PUFF 2 PUFF INHALATION ×2 (02:15→08:28)
[2021-05-11 06:00] VITALS: BP 167/46; PULSE 62; RESP 18; TEMP 35.9; O2SAT 97
[2021-05-11 08:00] VITALS: PULSE 62; RESP 18; O2SAT 97
[2021-05-11] MEDS: hydrOXYzine pamoate 25 MG CAPSULE PO (08:26)
[2021-05-11] MEDS: ASPIRIN 325 MG TABLET PO (08:26)
[2021-05-11] MEDS: MULTIVITAMINS /C LUTEIN (CENTRUM SILVER) TABLET *BKC 1 TAB PO (08:26)
[2021-05-11 08:27] VITALS: PULSE 62
[2021-05-11] MEDS: POTASSIUM CHLORIDE 10 MEQ TABLET.ER PO (08:27)
[2021-05-11] MEDS: METOPROLOL TARTRATE 50 MG TAB PO (08:27)
[2021-05-11] MEDS: amLODIPine BESYLATE 5 MG TABLET 10 MG PO (08:27)
[2021-05-11] MEDS: hydroCHLOROthiazide 25 MG TABLET PO (08:27)
[2021-05-11] MEDS: TIZANIDINE HCL 2 MG TABLET PO (08:28)
[2021-05-11] MEDS: SENNA/DOCUSATE SODIUM TABLET 1 TAB PO (08:28)
[2021-05-11] MEDS: LIDOCAINE 5% PATCH 3 PATCH TRANSDERM (08:28)
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
== END 2021-05-11 14:08 | disposition home health service (06) | DRG 57 ==
PROVIDERS: Internal Medicine; Physician Assistant; Admitting Provider Physical Medicine & Rehabilitation; PCP Internal Medicine; Visit Provider Physician Assistant
DX: I69.354 Hemiplegia and hemiparesis following cerebral infarction affecting left non-dominant side (principal); M47.12 Other spondylosis with myelopathy, cervical region; Q21.1 Atrial septal defect; J98.11 Atelectasis; I69.392 Facial weakness following cerebral infarction; I69.322 Dysarthria following cerebral infarction; I69.391 Dysphagia following cerebral infarction; R13.10 Dysphagia, unspecified; F41.9 Anxiety disorder, unspecified; G89.29 Other chronic pain; I10 Essential (primary) hypertension; M47.816 Spondylosis without myelopathy or radiculopathy, lumbar region; M48.02 Spinal stenosis, cervical region; R73.03 Prediabetes; Z96.643 Presence of artificial hip joint, bilateral; Z96.651 Presence of right artificial knee joint; Z98.1 Arthrodesis status; E78.5 Hyperlipidemia, unspecified; R55 Syncope and collapse; R30.0 Dysuria
CPT/HCPCS: 36415; 71045; 80048; 80053; 80061; 81001; 82948; 83036; 83735; 85025; 87086; 87088; 92507; 92523; 92610; 92611; 93005; 97110; 97116; 97161; 97165; 97530; 97535; 97542; A9270; J1650

== ENCOUNTER 2021-05-22 15:10 | Outpatient (NON) | payer MEDICARE, SELFPAY ==
[2021-05-22 15:54] LABS: Basophils Absolute Auto 0.03 K/mm3 (0.00-0.10); Basophils Percent Auto 0.3 % (0.0-1.0); Hematocrit 35.9 % (35.0-42.0); Hemoglobin 12.1 g/dL (11.7-13.8); Immature Granulocyte Absolute 0.04 K/mm3 (0.00-0.00); Immature Granulocyte Percent A 0.4 % (0.0-0.0); Lymphocytes Absolute Auto 2.02 K/mm3 (1.10-4.50); Lymphocytes Percent Auto 19.9 % (18.0-42.0); Mean Corpuscular HGB Conc 33.7 g/dL (32.0-36.0); Mean Corpuscular Hemoglobin 29.6 pg (27.0-31.0); Mean Corpuscular Volume 87.8 fL (78.0-102.0); Mean Platelet Volume 9.8 fl (9.2-11.8); Monocytes Absolute Auto 0.78 K/mm3 (0.10-0.90); Monocytes Percent Auto 7.7 % (2.0-11.0); Neutrophils Absolute Auto 7.3 K/mm3 (1.7-7.2); Neutrophils Percent Auto 71.7 % (50.0-70.0); Platelet Count Result 249 K/mm3 (150-420); Red Blood Count 4.09 M/mm3 (4.20-5.40); Red Cell Distribution Width 12.7 % (11.6-14.4); White Blood Count 10.1 K/mm3 (4.8-10.8)
[2021-05-22 16:01] LABS: Anion Gap 9 mmol/L (8-16); Blood Urea Nitrogen 26 mg/dL (7-18); Carbon Dioxide 31 mmol/L (21-32); Chloride 99 mmol/L (98-108); Estimated Glomerular Filt Rate 45; Glucose 231 mg/dL (70-99); Osmolality Calculated 299 mOsm/kg (285-295); Potassium 2.9 mmol/L (3.5-5.1); Sodium 139 mmol/L (136-145)
== END 2021-05-22 15:11 | disposition home or self-care (01) ==
LOC: CHSEH 15:15
PROVIDERS: Visit Provider Internal Medicine
DX: I69.354 Hemiplegia and hemiparesis following cerebral infarction affecting left non-dominant side (principal); I69.321 Dysphasia following cerebral infarction; I10 Essential (primary) hypertension; F41.9 Anxiety disorder, unspecified
CPT/HCPCS: 36415; 80048; 85025

== ENCOUNTER 2021-05-30 11:46 | Outpatient (NON) | payer MEDICARE, SELFPAY ==
[2021-05-30 12:53] LABS: Alanine Aminotransferase 19 U/L (14-59); Albumin Level 2.7 g/dL (3.4-5.0); Alkaline Phosphatase 120 U/L (46-116); Anion Gap 13 mmol/L (8-16); Aspartate Amino Transferase 16 U/L (15-37); Bilirubin,Total 0.4 mg/dL (0.00-1.00); Blood Urea Nitrogen 24 mg/dL (7-18); Calcium 9.5 mg/dL (8.5-10.1); Carbon Dioxide 27 mmol/L (21-32); Chloride 103 mmol/L (98-108); Estimated Glomerular Filt Rate 60; Glucose 140 mg/dL (70-99); Osmolality Calculated 302 mOsm/kg (285-295); Potassium 3.9 mmol/L (3.5-5.1); Sodium 143 mmol/L (136-145); Total Protein 7.3 g/dL (6.4-8.2)
== END 2021-05-30 11:47 | disposition home or self-care (01) ==
LOC: CHSHH 11:48
PROVIDERS: Visit Provider Internal Medicine
DX: I69.354 Hemiplegia and hemiparesis following cerebral infarction affecting left non-dominant side (principal); I69.321 Dysphasia following cerebral infarction; I10 Essential (primary) hypertension; F41.9 Anxiety disorder, unspecified
CPT/HCPCS: 36415; 80053; 83735

== ENCOUNTER 2021-06-13 10:44 | Outpatient (NON) | payer MEDICARE, SELFPAY ==
[2021-06-13 10:55] LABS: Basophils Absolute Auto 0.05 K/mm3 (0.00-0.10); Basophils Percent Auto 0.4 % (0.0-1.0); Eosinophils Absolute Auto 0.45 K/mm3 (0.02-0.50); Hematocrit 35.6 % (35.0-42.0); Hemoglobin 11.9 g/dL (11.7-13.8); Immature Granulocyte Absolute 0.06 K/mm3 (0.00-0.00); Immature Granulocyte Percent A 0.5 % (0.0-0.0); Lymphocytes Absolute Auto 2.34 K/mm3 (1.10-4.50); Lymphocytes Percent Auto 20.7 % (18.0-42.0); Mean Corpuscular HGB Conc 33.4 g/dL (32.0-36.0); Mean Corpuscular Hemoglobin 29.5 pg (27.0-31.0); Mean Corpuscular Volume 88.3 fL (78.0-102.0); Mean Platelet Volume 9.4 fl (9.2-11.8); Neutrophils Absolute Auto 7.5 K/mm3 (1.7-7.2); Neutrophils Percent Auto 66.4 % (50.0-70.0); Platelet Count Result 217 K/mm3 (150-420); Red Blood Count 4.03 M/mm3 (4.20-5.40); Red Cell Distribution Width 13.4 % (11.6-14.4); White Blood Count 11.3 K/mm3 (4.8-10.8)
[2021-06-13 11:17] LABS: Alanine Aminotransferase 23 U/L (14-59); Albumin Level 3.2 g/dL (3.4-5.0); Alkaline Phosphatase 137 U/L (46-116); Anion Gap 13 mmol/L (8-16); Aspartate Amino Transferase 14 U/L (15-37); Bilirubin,Total 0.8 mg/dL (0.00-1.00); Blood Urea Nitrogen 20 mg/dL (7-18); Calcium 9.1 mg/dL (8.5-10.1); Carbon Dioxide 26 mmol/L (21-32); Chloride 103 mmol/L (98-108); Estimated Glomerular Filt Rate 56; Glucose 167 mg/dL (70-99); Magnesium 1.9 mg/dL (1.8-2.4); Osmolality Calculated 300 mOsm/kg (285-295); Potassium 3.7 mmol/L (3.5-5.1); Sodium 142 mmol/L (136-145); Total Protein 7.8 g/dL (6.4-8.2)
== END 2021-06-13 10:45 | disposition home or self-care (01) ==
LOC: CHSHH 10:46
PROVIDERS: PCP Internal Medicine; Visit Provider Internal Medicine
DX: I69.354 Hemiplegia and hemiparesis following cerebral infarction affecting left non-dominant side (principal); I69.321 Dysphasia following cerebral infarction; I10 Essential (primary) hypertension; F41.9 Anxiety disorder, unspecified
CPT/HCPCS: 36415; 80053; 83735; 85025

== ENCOUNTER 2021-06-27 13:58 | Outpatient (RCR) | payer MEDICARE, SELFPAY ==
--- NOTE | 2021-06-27 15:58 | PTOPEVAL ---
Thank you for referring Ry Nesbitt to [facility].? The patient is scheduled to be seen for therapy? ____x/week for ___ weeks. Please review, sign, date and return this plan of care AZALEA. I agree with and certify that the following plan of care is medically necessary. Referring Physician Date Admitting Provider: Attending Provider: Kris Storey MD Referring Provider: *PT Outpatient Evaluation Start: 06/27/21 15:10 Freq: Status: Active Protocol: Document 06/27/21 15:10 [facility] (Rec: 06/27/21 15:57 [facility] [id number]) Therapy Assessment Status Assessment Status Assessment Status Evaluation Outpatient Past Medical History Neurological History Hx Cerebrovascular Accident (CVA) Yes Cardiovascular History Hx Hypertension Yes Hx Other Cardiac Disorders Yes: holter monitor placed prior to admission Respiratory History Hx Respiratory Disorders No Significant History Gastrointestinal History Hx Gastrointestinal Disorders No Significant History Genitourinary History Hx Genitourinary Disorders No Significant History Musculoskeletal History Hx Back Pain Yes Hx Other Musculoskeletal Disorders Yes: cervical-stenosis and myopathy Hematological History Hx Hematological Disorders No Significant History Endocrine History Hx Endocrine Disorders No Significant History HEENT History Hx Dental Problems Yes: has full dentures Hx Other HEENT Disorders Yes: wears glasses Integumentary History Hx Skin Disorders No Significant History Reproductive History Hx Reproductive Disorders No Significant History Psychosocial History Hx Anxiety Yes Pain History Has Past Pain Affected Your Daily Life Yes History of Long-Term Prescription Pain Yes Medication Use (Opiates) Anesthesia History Hx Anesthesia Reactions No Significant History Evaluation Information Problem Diagnosis hemiplegia following CVA Onset 04/21/21 Subjective Information patient reprots she had a Query Text:As Reported By Patient/ stroke back in April of this Family year. she reports afterher stroke she was admitted as an inpatient, then several weeks in acute rehab, and then several weeks at home with home health PT. she reports she lives at home alone. she reports she has help come to her house 7 days a week 8 hours a day. she reports at home she is walking,
--- NOTE | 2021-06-27 17:59 | OTOPEVAL ---
Thank you for referring Ry Nesbitt to [facility].? The patient is scheduled to be seen for therapy? ____x/week for ___ weeks. Please review, sign, date and return this plan of care AZALEA. I agree with and certify that the following plan of care is medically necessary. Referring Physician Date Admitting Provider: Attending Provider: Kris Storey MD Referring Provider: *OT Outpatient Evaluation Start: 06/27/21 14:00 Freq: Status: Active Protocol: Document 06/27/21 14:01 [facility] (Rec: 06/27/21 14:57 [facility] [id number]) Therapy Assessment Status Assessment Status Assessment Status Evaluation Outpatient Past Medical History Neurological History Hx Cerebrovascular Accident (CVA) Yes Cardiovascular History Hx Hypertension Yes Hx Other Cardiac Disorders Yes: holter monitor placed prior to admission Respiratory History Hx Respiratory Disorders No Significant History Gastrointestinal History Hx Gastrointestinal Disorders No Significant History Genitourinary History Hx Genitourinary Disorders No Significant History Musculoskeletal History Hx Back Pain Yes Hx Other Musculoskeletal Disorders Yes: cervical-stenosis and myopathy Hematological History Hx Hematological Disorders No Significant History Endocrine History Hx Endocrine Disorders No Significant History HEENT History Hx Dental Problems Yes: has full dentures Hx Other HEENT Disorders Yes: wears glasses Integumentary History Hx Skin Disorders No Significant History Reproductive History Hx Reproductive Disorders No Significant History Psychosocial History Hx Anxiety Yes Pain History Has Past Pain Affected Your Daily Life Yes History of Long-Term Prescription Pain Yes Medication Use (Opiates) Anesthesia History Hx Anesthesia Reactions No Significant History Evaluation Information Problem Diagnosis L UE weakness Onset 04/21/21 Cause CVA Subjective Information Patient reports that she had a Query Text:As Reported By Patient/ CVA on 04/21/21 and stayed in [facility] the hospital for ~3 days and then transferred to [facility] for ~3 weeks of acute rehab. Patient returned home and received Home Health in which she was just discharged. Patient reports that she continues to improve and can now take herself to the bathroom independently. Patient is unable to grasp
--- NOTE | 2021-07-18 16:12 | PCOTNOTE ---
On 07/18/21, the student, [Leigh Beck ], provided care and completed [facility] documentation on this patient. I have reviewed the student's documentation and agree with the findings. MS
--- NOTE | 2021-07-20 16:58 | PCOTNOTE ---
On 07/20/21, the student, [ Leigh Beck], provided care and completed [facility] documentation on this patient. I have reviewed the student's documentation and agree with the findings. MS
--- NOTE | 2021-07-23 15:57 | PCOTNOTE ---
On 07/23/21, the student, [Leigh Beck], provided care and completed [facility] documentation on this patient. I have reviewed the student's documentation and agree with the findings.SM
--- NOTE | 2021-07-25 17:24 | PCOTNOTE ---
On 07/25/21, the student, [Leigh Beck ], provided care and completed [facility] documentation on this patient. I have reviewed the student's documentation and agree with the findings.MS
--- NOTE | 2021-07-27 15:11 | PCOTNOTE ---
On 07/27/21, the student, [Leigh Beck ], provided care and completed [facility] documentation on this patient. I have reviewed the student's documentation and agree with the findings. MS
--- NOTE | 2021-08-01 15:49 | PCOTNOTE ---
On 08/01/21, the student, [ Leigh Beck], provided care and completed [facility] documentation on this patient. I have reviewed the student's documentation and agree with the findings. MS
--- NOTE | 2021-08-01 16:18 | OTOPEVAL ---
Thank you for referring Ry Nesbitt to [facility].? The patient is scheduled to be seen for therapy? ____x/week for ___ weeks. Please review, sign, date and return this plan of care AZALEA. I agree with and certify that the following plan of care is medically necessary. Referring Physician Date Admitting Provider: Attending Provider: Kris Storey MD Referring Provider: *OT Outpatient Evaluation Start: 06/27/21 14:00 Freq: Status: Active Protocol: Document 08/01/21 15:48 [facility] (Rec: 08/01/21 16:18 [facility] [id number] Therapy Assessment Status Assessment Status Assessment Status Re-evaluation Outpatient Past Medical History Neurological History Hx Cerebrovascular Accident (CVA) Yes Cardiovascular History Hx Hypertension Yes Hx Other Cardiac Disorders Yes: holter monitor placed prior to admission Respiratory History Hx Respiratory Disorders No Significant History Gastrointestinal History Hx Gastrointestinal Disorders No Significant History Genitourinary History Hx Genitourinary Disorders No Significant History Musculoskeletal History Hx Back Pain Yes Hx Other Musculoskeletal Disorders Yes: cervical-stenosis and myopathy Hematological History Hx Hematological Disorders No Significant History Endocrine History Hx Endocrine Disorders No Significant History HEENT History Hx Dental Problems Yes: has full dentures Hx Other HEENT Disorders Yes: wears glasses Integumentary History Hx Skin Disorders No Significant History Reproductive History Hx Reproductive Disorders No Significant History Psychosocial History Hx Anxiety Yes Pain History Has Past Pain Affected Your Daily Life Yes History of Long-Term Prescription Pain Yes Medication Use (Opiates) Anesthesia History Hx Anesthesia Reactions No Significant History Evaluation Information Problem Subjective Information Patient arrives to OT and Query Text:As Reported By Patient/ mentions no new concerns. She Family reports that she has been getting herself dressed independently and continues to work on self feeding with independence. Ry states that she performs home programming, including theraputty and theraband exercises. Patient continues to struggle with grasping items with the left hand but feels like she is improving. Pain Assessment Timing of Pain Assessment Timing of Pain Assessment Re-a
--- NOTE | 2021-08-22 14:12 | PTOPEVAL ---
Thank you for referring Ry Nesbitt to [facility].? The patient is scheduled to be seen for therapy? ____x/week for ___ weeks. Please review, sign, date and return this plan of care AZALEA. I agree with and certify that the following plan of care is medically necessary. Referring Physician Date Admitting Provider: Attending Provider: Kris Storey MD Referring Provider: *PT Outpatient Evaluation Start: 06/27/21 15:10 Freq: Status: Active Protocol: Document 08/08/21 15:00 [facility] (Rec: 08/08/21 16:33 [facility] [id number]) Therapy Assessment Status Assessment Status Assessment Status Re-evaluation Outpatient Past Medical History Neurological History Hx Cerebrovascular Accident (CVA) Yes Cardiovascular History Hx Hypertension Yes Hx Other Cardiac Disorders Yes: holter monitor placed prior to admission Respiratory History Hx Respiratory Disorders No Significant History Gastrointestinal History Hx Gastrointestinal Disorders No Significant History Genitourinary History Hx Genitourinary Disorders No Significant History Musculoskeletal History Hx Back Pain Yes Hx Other Musculoskeletal Disorders Yes: cervical-stenosis and myopathy Hematological History Hx Hematological Disorders No Significant History Endocrine History Hx Endocrine Disorders No Significant History HEENT History Hx Dental Problems Yes: has full dentures Hx Other HEENT Disorders Yes: wears glasses Integumentary History Hx Skin Disorders No Significant History Reproductive History Hx Reproductive Disorders No Significant History Psychosocial History Hx Anxiety Yes Pain History Has Past Pain Affected Your Daily Life Yes History of Long-Term Prescription Pain Yes Medication Use (Opiates) Anesthesia History Hx Anesthesia Reactions No Significant History Pain Assessment Timing of Pain Assessment Timing of Pain Assessment Assessment Self Report Self Report Pain Level 0 Pain Score Pain Score 0: Self Report Lower Extremity Muscle Strength Testing Hip Strength Left Hip Flexion Strength 4 Good Hip Abduction Strength 4- Good - Right Hip Flexion Strength 4 Good Hip Abduction Strength 4 Good Knee Strength Left Knee Flexion Strength 5 Normal Knee Extension Strength 5 Normal Right Knee Flexion Strength 5 Normal Knee Extension Strength 5 Normal Ankle Strength Left Ankle Dorsiflexion Strength 5 Normal Ankle Plantarflexion Strength 4+ Good + Right Ankle Dorsiflexion Strength 5 Normal Ankle Plantarflexion Strength 4+ Good + Balance Assessment Time Up Go (TUG) Timed Up and Go Test (TUG
--- NOTE | 2021-08-29 13:05 | PTOPEVAL ---
Thank you for referring Ry Nesbitt to [facility].? The patient is scheduled to be seen for therapy? ____x/week for ___ weeks. Please review, sign, date and return this plan of care [place]ALEA. I agree with and certify that the following plan of care is medically necessary. Referring Physician Date Admitting Provider: Attending Provider: Kris Storey MD Referring Provider: *PT Outpatient Evaluation Start: 06/27/21 15:10 Freq: Status: Active Protocol: Document 08/08/21 15:00 [facility] (Rec: 08/08/21 16:33 [facility] [id number]) Therapy Assessment Status Assessment Status Assessment Status Re-evaluation Outpatient Past Medical History Neurological History Hx Cerebrovascular Accident (CVA) Yes Cardiovascular History Hx Hypertension Yes Hx Other Cardiac Disorders Yes: holter monitor placed prior to admission Respiratory History Hx Respiratory Disorders No Significant History Gastrointestinal History Hx Gastrointestinal Disorders No Significant History Genitourinary History Hx Genitourinary Disorders No Significant History Musculoskeletal History Hx Back Pain Yes Hx Other Musculoskeletal Disorders Yes: cervical-stenosis and myopathy Hematological History Hx Hematological Disorders No Significant History Endocrine History Hx Endocrine Disorders No Significant History HEENT History Hx Dental Problems Yes: has full dentures Hx Other HEENT Disorders Yes: wears glasses Integumentary History Hx Skin Disorders No Significant History Reproductive History Hx Reproductive Disorders No Significant History Psychosocial History Hx Anxiety Yes Pain History Has Past Pain Affected Your Daily Life Yes History of Long-Term Prescription Pain Yes Medication Use (Opiates) Anesthesia History Hx Anesthesia Reactions No Significant History Evaluation Information Problem Diagnosis hemiplegia following CVA Onset 04/21/21 Subjective Information patient reports she feels Query Text:As Reported By Patient/ Better this date. she reports Family she feels she is improving with therapy. however, she reports she is still motivated and wants to return to ambulation without her walker. she reports this is the main goal for her, and she would like to continue skilled PT to continue to work towards this goal. Pain Assessment Timing of Pain Assessment Timing of Pain Assessment Assessment Self Repo
--- NOTE | 2021-08-31 15:01 | OTOPEVAL ---
Thank you for referring Ry Nesbitt to [facility].? The patient is scheduled to be seen for therapy? ____x/week for ___ weeks. Please review, sign, date and return this plan of care [place]ALEA. I agree with and certify that the following plan of care is medically necessary. Referring Physician Date Admitting Provider: Attending Provider: rKis Storey MD Referring Provider: *OT Outpatient Evaluation Start: 06/27/21 14:00 Freq: Status: Active Protocol: Document 08/31/21 13:51 [facility] (Rec: 08/31/21 15:00 [facility] [id number]) Therapy Assessment Status Assessment Status Assessment Status Re-evaluation Outpatient Past Medical History Neurological History Hx Cerebrovascular Accident (CVA) Yes Cardiovascular History Hx Hypertension Yes Hx Other Cardiac Disorders Yes: holter monitor placed prior to admission Respiratory History Hx Respiratory Disorders No Significant History Gastrointestinal History Hx Gastrointestinal Disorders No Significant History Genitourinary History Hx Genitourinary Disorders No Significant History Musculoskeletal History Hx Back Pain Yes Hx Other Musculoskeletal Disorders Yes: cervical-stenosis and myopathy Hematological History Hx Hematological Disorders No Significant History Endocrine History Hx Endocrine Disorders No Significant History HEENT History Hx Dental Problems Yes: has full dentures Hx Other HEENT Disorders Yes: wears glasses Integumentary History Hx Skin Disorders No Significant History Reproductive History Hx Reproductive Disorders No Significant History Psychosocial History Hx Anxiety Yes Pain History Has Past Pain Affected Your Daily Life Yes History of Long-Term Prescription Pain Yes Medication Use (Opiates) Anesthesia History Hx Anesthesia Reactions No Significant History Evaluation Information Problem Subjective Information Patient reports, I can Query Text:As Reported By Patient/ finally tell that my left hand Family is getting stronger but it continues to be difficult to control. Pain Assessment Timing of Pain Assessment Timing of Pain Assessment Pre-Treatment Self Report Self Report Pain Level 0 Pain Score Pain Score 0: Self Report Upper Extremity Muscle Strength Testing General Upper Extremity Strength Gross Upper Extremity Strength Comments L UE: 4/5 Hand Tram Driver/Pinch Strength Assessment Hand Left Tram Driver Strength (lbs) 23 Lateral Pinch Strength (lbs) 4 9-Hole Peg Hand Test Hand Left Hand Dominance Left Scoring Time (seconds) 132 Complex ADL Assessment Grooming/Oral Care Grooming Comments
--- NOTE | 2021-10-01 15:05 | OTOPEVAL ---
Thank you for referring Ry Nesbitt to [facility].? The patient is scheduled to be seen for therapy? ____x/week for ___ weeks. Please review, sign, date and return this plan of care AZALEA. I agree with and certify that the following plan of care is medically necessary. Referring Physician Date Admitting Provider: Attending Provider: Kris Storey MD Referring Provider: *OT Outpatient Evaluation Start: 06/27/21 14:00 Freq: Status: Active Protocol: Document 10/01/21 13:56 [facility] [place] (Rec: 10/01/21 15:03 [facility] [place] [id number]) Therapy Assessment Status Assessment Status Assessment Status Re-evaluation Outpatient Past Medical History Neurological History Hx Cerebrovascular Accident (CVA) Yes Cardiovascular History Hx Hypertension Yes Hx Other Cardiac Disorders Yes: holter monitor placed prior to admission Respiratory History Hx Respiratory Disorders No Significant History Gastrointestinal History Hx Gastrointestinal Disorders No Significant History Genitourinary History Hx Genitourinary Disorders No Significant History Musculoskeletal History Hx Back Pain Yes Hx Other Musculoskeletal Disorders Yes: cervical-stenosis and myopathy Hematological History Hx Hematological Disorders No Significant History Endocrine History Hx Endocrine Disorders No Significant History HEENT History Hx Dental Problems Yes: has full dentures Hx Other HEENT Disorders Yes: wears glasses Integumentary History Hx Skin Disorders No Significant History Reproductive History Hx Reproductive Disorders No Significant History Psychosocial History Hx Anxiety Yes Pain History Has Past Pain Affected Your Daily Life Yes History of Long-Term Prescription Pain Yes Medication Use (Opiates) Anesthesia History Hx Anesthesia Reactions No Significant History Evaluation Information Problem Subjective Information Patient arrives to OT and Query Text:As Reported By Patient/ reports that she can feel Family her L hand getting stronger every day. She states that she still struggles to control it. Patient reports that she still is not able to cook and clean as well as picking up things continues to be very difficult. Patient is able to feed herself with increased ease and accuracy. Pain Assessment Timing of Pain Assessment Timing of Pain Assessment Re-assessment Self Report Self Report Pain Level 0 Pain Score Pain Score
== END 2021-10-01 17:04 | disposition still patient (30) ==
LOC: CHSPT 13:58
PROVIDERS: PCP Internal Medicine; Visit Provider Internal Medicine
DX: M54.5 Low back pain (principal); G81.90 Hemiplegia, unspecified affecting unspecified side; I69.991 Dysphagia following unspecified cerebrovascular disease; R13.10 Dysphagia, unspecified
CPT/HCPCS: 97110; 97112; 97116; 97161; 97165; 97530; 97535

== ENCOUNTER 2021-10-09 14:23 | Outpatient (RCR) | payer MEDICARE, SELFPAY ==
--- NOTE | 2021-10-09 15:56 | PTOPEVAL ---
Thank you for referring Ry Nesbitt to [facility].? The patient is scheduled to be seen for therapy? ____x/week for ___ weeks. Please review, sign, date and return this plan of care AZALEA. I agree with and certify that the following plan of care is medically necessary. Referring Physician Date Admitting Provider: Attending Provider: Dionicio Shaver MD Referring Provider: *PT Outpatient Evaluation Start: 10/09/21 14:55 Freq: Status: Active Protocol: Document 10/09/21 14:57 ACR (Rec: 10/09/21 15:56 ACR [id number]) Therapy Assessment Status Assessment Status Assessment Status Evaluation Outpatient Past Medical History Neurological History Hx Cerebrovascular Accident (CVA) Yes Cardiovascular History Hx Hypertension Yes Hx Other Cardiac Disorders Yes: holter monitor placed prior to admission Respiratory History Hx Respiratory Disorders No Significant History Gastrointestinal History Hx Gastrointestinal Disorders No Significant History Genitourinary History Hx Genitourinary Disorders No Significant History Musculoskeletal History Hx Back Pain Yes Hx Other Musculoskeletal Disorders Yes: cervical-stenosis and myopathy Hematological History Hx Hematological Disorders No Significant History Endocrine History Hx Endocrine Disorders No Significant History HEENT History Hx Dental Problems Yes: has full dentures Hx Other HEENT Disorders Yes: wears glasses Integumentary History Hx Skin Disorders No Significant History Reproductive History Hx Reproductive Disorders No Significant History Psychosocial History Hx Anxiety Yes Pain History Has Past Pain Affected Your Daily Life Yes History of Long-Term Prescription Pain Yes Medication Use (Opiates) Anesthesia History Hx Anesthesia Reactions No Significant History Evaluation Information Problem Diagnosis BPPV Onset 04/21/21 Subjective Information Patient states that she had a Query Text:As Reported By Patient/ stroke on April 21 and has Family had dizziness since. She states that the dizziness does not happen everyday, but when she makes certain motions looking up and down the dizziness comes. Patient has a cervical fusion so cannot look too far to the R or the L . The patient reports that she goes to the ENT every 6 months to get her ears cleaned and th
--- NOTE | 2021-11-21 15:21 | PTOPEVAL ---
Thank you for referring Ry Nesbitt to [facility].? The patient is scheduled to be seen for therapy? ____x/week for ___ weeks. Please review, sign, date and return this plan of care [place]ALEA. I agree with and certify that the following plan of care is medically necessary. Referring Physician Date Admitting Provider: Attending Provider: Dionicio Shaver MD Referring Provider: *PT Outpatient Evaluation Start: 10/09/21 14:55 Freq: Status: Active Protocol: Document 11/21/21 13:[address] [facility] (Rec: 11/21/21 14:[address] [facility] [id number]) Therapy Assessment Status Assessment Status Assessment Status Discharge Outpatient Past Medical History Neurological History Hx Cerebrovascular Accident (CVA) Yes Cardiovascular History Hx Hypertension Yes Hx Other Cardiac Disorders Yes: holter monitor placed prior to admission Respiratory History Hx Respiratory Disorders No Significant History Gastrointestinal History Hx Gastrointestinal Disorders No Significant History Genitourinary History Hx Genitourinary Disorders No Significant History Musculoskeletal History Hx Back Pain Yes Hx Other Musculoskeletal Disorders Yes: cervical-stenosis and myopathy Hematological History Hx Hematological Disorders No Significant History Endocrine History Hx Endocrine Disorders No Significant History HEENT History Hx Dental Problems Yes: has full dentures Hx Other HEENT Disorders Yes: wears glasses Integumentary History Hx Skin Disorders No Significant History Reproductive History Hx Reproductive Disorders No Significant History Psychosocial History Hx Anxiety Yes Pain History Has Past Pain Affected Your Daily Life Yes History of Long-Term Prescription Pain Yes Medication Use (Opiates) Anesthesia History Hx Anesthesia Reactions No Significant History Evaluation Information Problem Diagnosis BPPV Onset 04/21/21 Subjective Information patient reports she feels Query Text:As Reported By Patient/ good this date. she reports Family she has no pain. she reports she has had no falls. she reports she uses the walker most of the time, but also uses a cane/no AD at times. Pain Assessment Timing of Pain Assessment Timing of Pain Assessment Assessment Self Report Self Report Pain Level 0 Pain Score Pain Score 0: Self Report Balance Assessment Tinetti Balance Assessment Sitting Balance Steady, safe Ability to Arise Able, uses arms to help Attempts to Arise Arises on 1st attempt
== END 2021-11-21 15:33 | disposition home or self-care (01) ==
LOC: CHSPT 14:23
PROVIDERS: Visit Provider Otolaryngology
DX: R26.89 Other abnormalities of gait and mobility (principal); H81.10 Benign paroxysmal vertigo, unspecified ear
CPT/HCPCS: 97110; 97112; 97116; 97161

== ENCOUNTER 2021-10-09 15:00 | Outpatient (RCR) | payer MEDICARE, SELFPAY ==
--- NOTE | 2021-10-23 15:29 | OTOPEVAL ---
Thank you for referring Ry Nesbitt to [facility].? The patient is scheduled to be seen for therapy? ____x/week for ___ weeks. Please review, sign, date and return this plan of care AZALEA. I agree with and certify that the following plan of care is medically necessary. Referring Physician Date Admitting Provider: Attending Provider: Kris Storey MD Referring Provider: *OT Outpatient Evaluation Start: 10/09/21 14:10 Freq: Status: Active Protocol: Document 10/23/21 14:07 [facility] (Rec: 10/23/21 15:29 [facility] [id number]) Therapy Assessment Status Assessment Status Assessment Status Discharge Outpatient Past Medical History Neurological History Hx Cerebrovascular Accident (CVA) Yes Cardiovascular History Hx Hypertension Yes Hx Other Cardiac Disorders Yes: holter monitor placed prior to admission Respiratory History Hx Respiratory Disorders No Significant History Gastrointestinal History Hx Gastrointestinal Disorders No Significant History Genitourinary History Hx Genitourinary Disorders No Significant History Musculoskeletal History Hx Back Pain Yes Hx Other Musculoskeletal Disorders Yes: cervical-stenosis and myopathy Hematological History Hx Hematological Disorders No Significant History Endocrine History Hx Endocrine Disorders No Significant History HEENT History Hx Dental Problems Yes: has full dentures Hx Other HEENT Disorders Yes: wears glasses Integumentary History Hx Skin Disorders No Significant History Reproductive History Hx Reproductive Disorders No Significant History Psychosocial History Hx Anxiety Yes Pain History Has Past Pain Affected Your Daily Life Yes History of Long-Term Prescription Pain Yes Medication Use (Opiates) Anesthesia History Hx Anesthesia Reactions No Significant History Evaluation Information Problem Subjective Information Patient reports that she is Query Text:As Reported By Patient/ able to perform bathing Family without assist once she is in the tub. She also reports that she is feeding herself with fair accuracy. Patient feels that her L hand has greatly improved but still has some progress to be made as well. Patient reports, I know I have the strength in the L hand but I don't have a lot of control. Pain Assessment Timing of Pain Assessment Timing of Pain Assessment Re-assessment Self Report Self Report Pain Level 0
== END 2021-10-23 16:22 | disposition home or self-care (01) ==
LOC: CHSOT 15:00
PROVIDERS: PCP Internal Medicine; Visit Provider Internal Medicine
DX: M54.50 Low back pain, unspecified (principal); G81.90 Hemiplegia, unspecified affecting unspecified side; I69.991 Dysphagia following unspecified cerebrovascular disease; R13.10 Dysphagia, unspecified
CPT/HCPCS: 97110; 97530

== ENCOUNTER 2022-01-16 13:07 | Outpatient (RCR) | payer MEDICARE, SELFPAY ==
--- NOTE | 2022-01-16 13:47 | PTOPEVAL ---
Thank you for referring Ry Nesbitt to [facility].? The patient is scheduled to be seen for therapy? ___2_x/week for 12 visits. Please review, sign, date and return this plan of care AZALEA. I agree with and certify that the following plan of care is medically necessary. Referring Physician Date Admitting Provider: Attending Provider: Kris Storey MD Referring Provider: *PT Outpatient Evaluation Start: 01/16/22 13:02 Freq: Status: Active Protocol: Document 01/16/22 13:03 [facility] (Rec: 01/16/22 13:46 [facility] [id number]) Therapy Assessment Status Assessment Status Assessment Status Evaluation Outpatient Past Medical History Neurological History Hx Cerebrovascular Accident (CVA) Yes Cardiovascular History Hx Hypertension Yes Hx Other Cardiac Disorders Yes: holter monitor placed prior to admission Respiratory History Hx Respiratory Disorders No Significant History Gastrointestinal History Hx Gastrointestinal Disorders No Significant History Genitourinary History Hx Genitourinary Disorders No Significant History Musculoskeletal History Hx Back Pain Yes Hx Other Musculoskeletal Disorders Yes: cervical-stenosis and myopathy Hematological History Hx Hematological Disorders No Significant History Endocrine History Hx Endocrine Disorders No Significant History HEENT History Hx Dental Problems Yes: has full dentures Hx Other HEENT Disorders Yes: wears glasses Integumentary History Hx Skin Disorders No Significant History Reproductive History Hx Reproductive Disorders No Significant History Psychosocial History Hx Anxiety Yes Pain History Has Past Pain Affected Your Daily Life Yes History of Long-Term Prescription Pain Yes Medication Use (Opiates) Anesthesia History Hx Anesthesia Reactions No Significant History Evaluation Information Problem Diagnosis cva with left hemiparesis, back pain Onset 01/02/22 Subjective Information Pt. reports that she developed Query Text:As Reported By Patient/ low back and right leg pain Family about 2 weeks. She reports she has had difficulty moving since developing pain. She originally was suppose to attend therapy due to weakness on her left side from a past stroke. She reports she currently has a caregiver 4 hours/day 7 days a week. She states that she is having
--- NOTE | 2022-01-22 16:42 | OTOPEVAL ---
Thank you for referring Ry Nesbitt to [facility].? The patient is scheduled to be seen for therapy? ____x/week for ___ weeks. Please review, sign, date and return this plan of care [place]ALEA. I agree with and certify that the following plan of care is medically necessary. Referring Physician Date Admitting Provider: Attending Provider: Kris Storey MD Referring Provider: *OT Outpatient Evaluation Start: 01/22/22 10:25 Freq: Status: Active Protocol: Document 01/22/22 13:10 [facility] (Rec: 01/22/22 14:02 [facility] [id number]) Therapy Assessment Status Assessment Status Assessment Status Evaluation Outpatient Past Medical History Neurological History Hx Cerebrovascular Accident (CVA) Yes Cardiovascular History Hx Hypertension Yes Hx Other Cardiac Disorders Yes: holter monitor placed prior to admission Respiratory History Hx Respiratory Disorders No Significant History Gastrointestinal History Hx Gastrointestinal Disorders No Significant History Genitourinary History Hx Genitourinary Disorders No Significant History Musculoskeletal History Hx Back Pain Yes Hx Other Musculoskeletal Disorders Yes: cervical-stenosis and myopathy Hematological History Hx Hematological Disorders No Significant History Endocrine History Hx Endocrine Disorders No Significant History HEENT History Hx Dental Problems Yes: has full dentures Hx Other HEENT Disorders Yes: wears glasses Integumentary History Hx Skin Disorders No Significant History Reproductive History Hx Reproductive Disorders No Significant History Psychosocial History Hx Anxiety Yes Pain History Has Past Pain Affected Your Daily Life Yes History of Long-Term Prescription Pain Yes Medication Use (Opiates) Anesthesia History Hx Anesthesia Reactions No Significant History Evaluation Information Problem Diagnosis L hand and arm weakness Onset April 2021 Cause CVA Subjective Information Patient reports that her L Query Text:As Reported By Patient/ hand holds her back from Family doing a lot of things. Feeding herself with the L hand is difficult and patient feels that her L hand has weakened over the last 3 weeks . Patient states that it is more difficult to get in/out of car, walk, and get around. She now needs some help getting dressed and was previously independe
--- NOTE | 2022-03-05 16:53 | PCOTNOTE ---
Patient was seen for evaluation only and then transitioned to home health services following a hospitalization. See eval for functional status at time of discharge. MS
== END 2022-01-22 09:47 | disposition home or self-care (01) ==
LOC: CHSPT 13:07
PROVIDERS: PCP Internal Medicine; Visit Provider Internal Medicine
DX: I69.954 Hemiplegia and hemiparesis following unspecified cerebrovascular disease affecting left non-dominant side (principal)
CPT/HCPCS: 97110; 97140; 97161; 97165

== ENCOUNTER 2022-01-29 15:59 | Observation (INO) | payer MEDICARE, SELFPAY ==
[2022-01-29] VITALS (7 sets, daily range): BP systolic 126–184; BP diastolic 69–89; PULSE 64–71; RESP 18–20; TEMP 36.4–36.7; O2SAT 95–99; BMI 34.0
--- NOTE | 2022-01-29 16:25 | ED.GENADULT ---
HPI - General Adult General Chief complaint: Recheck/Abnormal Lab/Rx Stated complaint: sent by yo storey Time Seen by Provider: 01/29/22 16:25 History of Present Illness HPI narrative: 81-year-old female patient is brought to the ER by the family and the caregiver for further evaluation of elevated blood sugar and hemoglobin A1c. The patient apparently was seen by her primary care provider yesterday for dry mouth and increased thirst and urination as well as acute exacerbation of chronic low back pain. The patient was diagnosed with the oral candidiasis and lumbar radiculopathy. The patient had some outpatient lab work done and the lab call the aligner with the results of the blood sugar being 800 55 and hemoglobin A1c of 13.8. I did discuss the patient with Dr. Storey and he indicates that the patient had a random blood sugar of 110 and the hemoglobin A1c below 6 in December of this year. She has had 2 rounds of Medrol Dosepak for the low back pain. 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 The patient the has had some stroke with some left-sided weakness and has been making good recovery. She was doing physical therapy up until recently when she started having back pain again. This last 2 weeks she has gone down from walking with a walker to almost wheelchair. Patient and family deny any bowel or bladder incontinence. Related Data Home Medications Medication Instructions Recorded Confirmed Centrum Silver 1 tablet PO DAILY 04/24/21 09/25/21 aspirin 325 mg PO DAILY 04/24/21 09/25/21 calcium carbonate-vitamin D3 1 tablet PO DAILY 04/24/21 09/25/21 melatonin 5 mg PO HS 04/24/21 09/25/21 sennosides-docusate sodium [Senna 1 tab-cap PO BID 04/24/21 09/25/21 with Docusate Sodium] cranberry fruit concentrate [Azo 500 mg PO DAILY 01/29/22 01/29/22 Cranberry] duloxetine 40 mg PO HS 01/29/22 01/29/22 magnesium 250 mg PO BID 01/29/22 01/29/22 potassium chloride 20 meq PO DAILY 01/29/22 01/29/22 Allergies Allergy/AdvReac Type Severity Reaction Status Date / Time Sulfa (Sulfonamide Allergy Intermediate HALLUCINATI Verified 01/29/22 17:33 Antibiotics) ONS midazolam Allergy Unknown unknown Verified 01/29/22 17:33 Review of Systems Review of Systems: All systems reviewed & are unremarkable except as noted in HPI and below PMFSH Past Medical History Medical History Anxiety Back pain Hyperlipidemia Hypertension Neck pain Osteoarthritis Osteoarthritis of cervical and lumbar spine Surgical History Surgical History H/O cataract extraction History of fusion of cervical spine History of left hip replacement History of total right hip replacement History of total right knee replacement Family History Family History Father Family history of cardiovascular disease Hypertension Social History Social History Social History: patient lives independently in a 1 level duplex with 1 step to enter with a handrail. Prior to admit patient used a single-point cane was able to cook clean and drive. 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 Patient's required caregiver services prior to his and this caregiver may assist her when she returns home. Smoking status: Never smoker Alcohol intake: current Drinks per week: 1 Substance use: never Gender identity (if verbalized by the patient): Female Spiritual care concerns: No Course Course Emergency Course: Patient's condition has been stable. She has been given a L of normal saline. Her fingerstick glucose was greater than 500 and her comprehensive metabolic profile shows a blood sugar to be 699 with a serum sodium of 129 and a chloride of 89. Serum potassium is 4.4. Anion gap is 10. Patient has
[2022-01-29 16:50] LABS: Base Excess ABG 3.8 mmol/L (0-2); Basophils Absolute Auto 0.01 K/mm3 (0.00-0.10); Basophils Percent Auto 0.1 % (0.0-1.0); Eosinophils Absolute Auto 0.01 K/mm3 (0.02-0.50); Eosinophils Percent Auto 0.1 % (1.0-6.0); HCO3 ABG 27.1 mmol/L (23-29); Hematocrit 37.5 % (35.0-42.0); Immature Granulocyte Absolute 0.06 K/mm3 (0.00-0.00); Immature Granulocyte Percent A 0.6 % (0.0-0.0); Lymphocytes Absolute Auto 1.96 K/mm3 (1.10-4.50); Lymphocytes Percent Auto 19.5 % (18.0-42.0); Mean Corpuscular HGB Conc 34.7 g/dL (32.0-36.0); Mean Corpuscular Hemoglobin 30.3 pg (27.0-31.0); Mean Corpuscular Volume 87.4 fL (78.0-102.0); Monocytes Absolute Auto 0.95 K/mm3 (0.10-0.90); Monocytes Percent Auto 9.4 % (2.0-11.0); Neutrophils Absolute Auto 7.1 K/mm3 (1.7-7.2); Neutrophils Percent Auto 70.3 % (50.0-70.0); Oxygen Content ABG 16.9 %vol (16.0-22.0); Oxygen Saturation ABG 92.3 % (95-97); Oxyhemoglobin 91.5 % (94-100); PCO2 ABG 36.4 mmHg (35-45); PO2 ABG 63.6 mmHg (75-85); Platelet Count Result 200 K/mm3 (150-420); Red Blood Count 4.29 M/mm3 (4.20-5.40); Red Cell Distribution Width 12.6 % (11.6-14.4); Total Hemoglobin 13.1 g/dL (12.0-18.0); White Blood Count 10.1 K/mm3 (4.8-10.8); pH ABG 7.49 (7.35-7.45)
[2022-01-29 16:51] LABS: Device ROOM AIR; Modified Allen's Test Pass; Site Drawn RIGHT RADIAL
[2022-01-29 17:08] LABS: Acetone Small (Negative)
[2022-01-29 17:09] LABS: Alanine Aminotransferase 33 U/L (14-59); Albumin Level 3.1 g/dL (3.4-5.0); Alkaline Phosphatase 174 U/L (46-116); Anion Gap 10 mmol/L (8-16); Aspartate Amino Transferase 20 U/L (15-37); Bilirubin,Total 0.8 mg/dL (0.00-1.00); Blood Urea Nitrogen 33 mg/dL (7-18); Carbon Dioxide 30 mmol/L (21-32); Chloride 89 mmol/L (98-108); Estimated Glomerular Filt Rate 34; Potassium 4.4 mmol/L (3.5-5.1); Sodium 129 mmol/L (136-145); Total Protein 6.7 g/dL (6.4-8.2)
[2022-01-29 17:10] LABS: Glucose 699 mg/dL (70-99); Osmolality Calculated 308 mOsm/kg (285-295)
[2022-01-29] MEDS: SODIUM CHLORIDE 0.9% IV 1,000 ML 999 ML IV CONT (17:27)
[2022-01-29 17:58] LABS: Glucose Point of Care > 450 mg/dl (65-105)
[2022-01-29 17:58] LABS: Glucose Point of Care > 450 mg/dl (65-105)
[2022-01-29 18:13] LABS: Add Urine Microscopic? YES; Appearance Urine Clear (Clear); Bilirubin Urine Negative (Negative); Blood Urine 1+ (Negative); Color Urine Light Yellow (Yellow); Glucose Urine UA 3+ (Negative); Ketones Urine 1+ (Negative); Leukocyte Esterase Ur Trace (Negative); Nitrate Urine Positive (Negative); Protein Urine Negative (Negative); Specific Grav Ur <= 1.005 (1.010-1.020); Urobilinogen Urine 0.2 mg/dL (0.2-1.0)
[2022-01-29] MEDS: INSULIN HUMAN REGULAR (*BKC) 100 UNITS/ML 10 UNITS SUB-Q (18:18)
[2022-01-29 18:20] LABS: Bacteria Urine 2+ /hpf; Squamous Epithelial Cell Urine Few /hpf (Few)
--- NOTE | 2022-01-29 18:50 | ADMGEN ---
This patient, Gittel Nesbitt, was admitted to 2nd Floor Room 208-2. Patient/family oriented to hospital policies and general routines including ID bracelet, bed and alarms, pain management, procedures, bathroom and other care routines, personal items, smoking policy, room service/diet, and visiting hours. Information on how to activate the Rapid Response Team has been discussed. Patient/Family are encouraged to report perceived risks to care and to ask questions if they do not understand what they are told or what they should do.
[2022-01-29 19:00] LABS: Glucose Point of Care > 450 mg/dl (65-105)
--- NOTE | 2022-01-29 19:13 | PC.NURSE ---
Bob rodriguez pt on floor. accucheck greater than 500. wants us to give 8u reg insulin and oral glipizide cont hourly checks with hi dose scale.
[2022-01-29] MEDS: SENNA/DOCUSATE SODIUM TABLET 1 TAB PO (19:30)
[2022-01-29] MEDS: glipiZIDE XL 5 MG TABCR PO (19:30)
[2022-01-29] MEDS: SODIUM CHLORIDE 0.9% IV 1,000 ML 150 ML IV CONT (19:31)
[2022-01-29 20:28] LABS: Glucose Point of Care > 450 mg/dl (65-105)
[2022-01-29] MEDS: METOPROLOL SUCCINATE EXT REL 50 MG TABCR PO (21:16)
[2022-01-29] MEDS: DULoxetine HCL 20 MG CAPSULE.DR 40 MG PO (21:16)
[2022-01-29] MEDS: ATORVASTATIN 40 MG TABLET PO (21:18)
[2022-01-29] MEDS: MELATONIN 5 MG TABLET 10 MG PO (21:18)
[2022-01-29] MEDS: INSULIN GLARGINE (*BKC) 100 UNITS/ML 10 UNITS SUB-Q (21:26)
[2022-01-29 21:30] LABS: Glucose Point of Care 430 mg/dl (65-105)
[2022-01-29] MEDS: cefTRIAXone 1 GM in SODIUM CHLORIDE 0.9% IV 50 ML IVPB (22:05)
[2022-01-29 22:17] LABS: Glucose Point of Care 347 mg/dl (65-105)
[2022-01-30] VITALS: BP 130/72; PULSE 70; RESP 16; TEMP 36.8; O2SAT 93
[2022-01-30 00:05] LABS: Glucose Point of Care 228 mg/dl (65-105)
[2022-01-30 00:05] LABS: Glucose Point of Care 169 mg/dl (65-105)
[2022-01-30] MEDS: HYDROcodone/acetaminophen (*CRX) 5-325 MG TABLET 1 TAB PO ×3 (00:08→21:03)
--- NOTE | 2022-01-30 00:15 | PC.NURSE ---
Orders indicated that patient would require blood glucose readings every hour, with sliding scale insulin given according to the blood glucose. Once the patient's blood glucose was below 200, the hourly checks would stop, and blood glucose with sliding scale would be given AC, and blood glucose only HS. Patient's blood glucose was 169 at the 0000 reading. Therefore, hourly blood glucose checks were stopped, and AC/HS were begun.
[2022-01-30] MEDS: SODIUM CHLORIDE 0.9% IV 1,000 ML 150 ML IV CONT ×2 (02:54→09:43)
[2022-01-30 05:07] LABS: Hematocrit 32.2 % (35.0-42.0); Hemoglobin 11.1 g/dL (11.7-13.8); Mean Corpuscular HGB Conc 34.5 g/dL (32.0-36.0); Mean Corpuscular Hemoglobin 30.3 pg (27.0-31.0); Mean Platelet Volume 9.6 fl (9.2-11.8); Platelet Count Result 164 K/mm3 (150-420); Red Blood Count 3.66 M/mm3 (4.20-5.40); Red Cell Distribution Width 12.5 % (11.6-14.4); White Blood Count 10.9 K/mm3 (4.8-10.8)
[2022-01-30 05:22] LABS: Alanine Aminotransferase 27 U/L (14-59); Albumin Level 2.4 g/dL (3.4-5.0); Alkaline Phosphatase 117 U/L (46-116); Anion Gap 9 mmol/L (8-16); Aspartate Amino Transferase 18 U/L (15-37); Bilirubin,Total 0.5 mg/dL (0.00-1.00); Blood Urea Nitrogen 28 mg/dL (7-18); Calcium 7.7 mg/dL (8.5-10.1); Carbon Dioxide 28 mmol/L (21-32); Chloride 101 mmol/L (98-108); Estimated Glomerular Filt Rate 49; Glucose 94 mg/dL (70-99); Magnesium 1.8 mg/dL (1.8-2.4); Osmolality Calculated 291 mOsm/kg (285-295); Potassium 2.9 mmol/L (3.5-5.1); Sodium 138 mmol/L (136-145); Total Protein 5.4 g/dL (6.4-8.2)
[2022-01-30] MEDS: KCL 20 MEQ/SW 100 ML 100 ML 50 MEQ IVPB ×2 (07:18→09:16)
[2022-01-30 07:47] LABS: Glucose Point of Care 143 mg/dl (65-105)
[2022-01-30 08:00] VITALS: BP 164/86; PULSE 68; RESP 18; TEMP 36.8; O2SAT 98
--- NOTE | 2022-01-30 08:20 | PM.SD2 ---
Same Day Admit/Disch: HPI History of Present Illness Chief complaint: NEW ONSET DIABETES MELLITUS Narrative: Ry Nesbitt is a 81 year old female was initially seen by her primary care provider today complaining of dry mouth and increased thirst and acute exacerbation of her chronic back pain which has been diagnosed by her PCP sciatica and she has been on 2 rounds of steroids. According to the notes patient primary care provider called because her blood sugars have been been running between 800 and 55 and her new hemoglobin A1c was 13.8. Patient's previous blood sugar or hemoglobin A1c in December was below 6. Patient has a past medical history of some left-sided weakness due to a stroke that she has been rehabbing physical therapy and progressing well due to the sciatica over the past couple of weeks she has been requiring a walker. In the emergency room patient's blood sugar was found to be 699 patient was admitted due to new onset diabetes mellitus was started on IV fluids and given some insulin. Patient has started oral antiglycemic medication this morning blood sugar was in the 90s and 130s. Patient will go home with a blood sugar machine as well as oral medication. Patient's potassium this morning was 2.9 she is received 2K riders and we will recheck her blood sugar prior to discharge if within normal limits patient will go home patient sodium is 138 BUN is 28 trending down creatinine is 1.07 which is trending down White blood count is 10.9 hemoglobin is 11.1, platelets of 164, cholesterol is 181, triglycerides 127. Patient's only pain is in her back patient states she is feeling a lot better than she did yesterday and she does not feel as thirsty. Call placed to Dr. Coe office left a voicemail on his nurses phone informed them patient going home on Glipzide and monitoring her blood sugar at home. Home health nurse will come. Patient to see conservation educator but they have informed us this has to be set up with patient primary care provider. [facility] Past Medical History Medical History Anxiety Back pain Hyperlipidemia Hypertension Neck pain Osteoarthritis Osteoarthritis of cervical and lumbar spine Surgical History Surgical History H/O cataract extraction History of fusion of cervical spine History of left hip replacement History of total right hip replacement History of total right knee replacement Family History Family History Father Family history of cardiovascular disease Hypertension Social History Social History Social History: patient lives independently in a 1 level duplex with 1 step to enter with a handrail. Prior to admit patient used a single-point cane was able to cook clean and drive. 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 Patient's required caregiver services prior to his and this caregiver may assist her when she returns home. Smoking status: Never smoker Second hand tobacco smoke exposure: Yes Alcohol intake: current Drinks per week: 3 Substance use: never Substance use type: does not use Gender identity (if verbalized by the patient): Female Spiritual care concerns: No Comments At time as signature, I have reviewed and agree with nursing past medical, social, surgical and family history. Please see nursing chart for further information. There is no relevant family history pertinent to the presenting complaint. Same Day Admit/Disch: Med Pre-admit Medications Home Medications Medication Instructions Recorded Confirmed Type Centrum Silver 1 tablet PO DAILY 04/24/21 01/29/22 History aspirin 325 mg PO DAILY 04/24/21 01/29/22 History calcium carbonate-vitamin D3 1 tablet PO DAILY 04/24/21 01/29/22 History melatonin 10 mg PO HS 04/24/21 01/29/22 Hist
[2022-01-30] MEDS: POTASSIUM CHLORIDE 20 MEQ TABLET PO (08:42)
[2022-01-30] MEDS: CALCIUM CARBONATE (OSCAL) 250 MG TABLET PO (08:42)
[2022-01-30 08:43] VITALS: PULSE 86
[2022-01-30] MEDS: METOPROLOL SUCCINATE EXT REL 50 MG TABCR PO ×2 (08:43→21:19)
[2022-01-30] MEDS: MAGNESIUM OXIDE 400 MG TABLET PO (08:43)
[2022-01-30] MEDS: SENNA/DOCUSATE SODIUM TABLET 1 TAB PO ×2 (08:43→17:55)
[2022-01-30] MEDS: amLODIPine BESYLATE 5 MG TABLET 10 MG PO (08:43)
[2022-01-30] MEDS: glipiZIDE XL 5 MG TABCR PO (08:43)
[2022-01-30] MEDS: hydroCHLOROthiazide 25 MG TABLET PO (08:44)
[2022-01-30] MEDS: ENOXAPARIN 40 MG/0.4 ML SYRINGE SUB-Q (08:44)
[2022-01-30 11:21] LABS: Glucose Point of Care 370 mg/dl (65-105)
--- NOTE | 2022-01-30 12:05 | PM.EVENT ---
Event Note Event Note Event Note: Patient blood sugar 370 and she is requiring insulin I am going to hold off from discharging and we plan for discharge tomorrow. Patient will need someone there for her to be able help with insulin and blood sugars. Daughter Rakel will be her tomorrow .
[2022-01-30 12:20] LABS: Anion Gap 7 mmol/L (8-16); Blood Urea Nitrogen 26 mg/dL (7-18); Calcium 7.8 mg/dL (8.5-10.1); Carbon Dioxide 27 mmol/L (21-32); Chloride 99 mmol/L (98-108); Estimated Glomerular Filt Rate 44; Glucose 373 mg/dL (70-99); Osmolality Calculated 295 mOsm/kg (285-295); Potassium 4.3 mmol/L (3.5-5.1); Sodium 133 mmol/L (136-145)
[2022-01-30] MEDS: FLUCONAZOLE 100 MG TABLET PO (13:04)
[2022-01-30 16:00] VITALS: BP 146/78; PULSE 76; RESP 18; TEMP 36.6; O2SAT 96
[2022-01-30 16:35] LABS: Glucose Point of Care 314 mg/dl (65-105)
[2022-01-30 21:05] LABS: Glucose Point of Care 265 mg/dl (65-105)
[2022-01-30] MEDS: ATORVASTATIN 40 MG TABLET PO (21:16)
[2022-01-30] MEDS: INSULIN GLARGINE (*BKC) 100 UNITS/ML 10 UNITS SUB-Q (21:16)
[2022-01-30] MEDS: DULoxetine HCL 20 MG CAPSULE.DR 40 MG PO (21:16)
[2022-01-30 21:19] VITALS: PULSE 70
[2022-01-30] MEDS: MELATONIN 5 MG TABLET 10 MG PO (21:19)
[2022-01-30] MEDS: cefTRIAXone 1 GM in SODIUM CHLORIDE 0.9% IV 50 ML IVPB (21:20)
[2022-01-30 23:36] VITALS: BP 160/71; PULSE 70; RESP 20; TEMP 36.4; O2SAT 97
[2022-01-31] MEDS: SODIUM CHLORIDE 0.9% IV 1,000 ML 75 ML IV CONT (02:30)
[2022-01-31 06:28] LABS: Glucose Point of Care 271 mg/dl (65-105)
[2022-01-31 06:53] LABS: Hematocrit 33.9 % (35.0-42.0); Hemoglobin 11.4 g/dL (11.7-13.8); Mean Corpuscular HGB Conc 33.6 g/dL (32.0-36.0); Mean Corpuscular Hemoglobin 30.3 pg (27.0-31.0); Mean Corpuscular Volume 90.2 fL (78.0-102.0); Mean Platelet Volume 9.8 fl (9.2-11.8); Platelet Count Result 154 K/mm3 (150-420); Red Blood Count 3.76 M/mm3 (4.20-5.40)
[2022-01-31 07:03] LABS: Anion Gap 8 mmol/L (8-16); Blood Urea Nitrogen 20 mg/dL (7-18); Calcium 7.7 mg/dL (8.5-10.1); Carbon Dioxide 26 mmol/L (21-32); Chloride 101 mmol/L (98-108); Estimated Glomerular Filt Rate > 60; Glucose 246 mg/dL (70-99); Osmolality Calculated 290 mOsm/kg (285-295); Potassium 3.6 mmol/L (3.5-5.1); Sodium 135 mmol/L (136-145)
--- NOTE | 2022-01-31 07:55 | PC.NURSE ---
Accu check was done at 0630 by assembler 1st shift. Sliding scale insulin given.
[2022-01-31 08:00] VITALS: BP 161/82; PULSE 78; RESP 14; TEMP 36.7; O2SAT 98
[2022-01-31] MEDS: hydroCHLOROthiazide 25 MG TABLET PO (08:38)
[2022-01-31] MEDS: CALCIUM CARBONATE (OSCAL) 250 MG TABLET PO (08:38)
[2022-01-31 08:39] VITALS: PULSE 82
[2022-01-31] MEDS: SENNA/DOCUSATE SODIUM TABLET 1 TAB PO (08:39)
[2022-01-31] MEDS: MAGNESIUM OXIDE 400 MG TABLET PO (08:39)
[2022-01-31] MEDS: METOPROLOL SUCCINATE EXT REL 50 MG TABCR PO (08:39)
[2022-01-31] MEDS: POTASSIUM CHLORIDE 20 MEQ TABLET PO (08:40)
[2022-01-31] MEDS: amLODIPine BESYLATE 5 MG TABLET 10 MG PO (08:40)
[2022-01-31] MEDS: glipiZIDE XL 5 MG TABCR PO (08:40)
[2022-01-31] MEDS: ENOXAPARIN 40 MG/0.4 ML SYRINGE SUB-Q (08:41)
[2022-01-31] MEDS: HYDROcodone/acetaminophen (*CRX) 5-325 MG TABLET 1 TAB PO (09:20)
--- NOTE | 2022-01-31 09:40 | PM.DS ---
DS: Admitting Diagnosis Discharge Date 01/31/2022 Admitting Diagnosis New Onset diabetes, Acute Kidney Injury, DS: Discharge Diagnosis Discharge Diagnosis (1) Diabetes mellitus, new onset: Code(s): E11.9 - Type 2 diabetes mellitus without complications Status: Acute Assessment and Plan: Accu-Cheks before meals and at bedtime Oral anti glycemic medication Document your blood sugars Initial blood sugar 699 currently 143 ....246 We will see shot polisher as outpatient We will follow up with your primary care provider to see if you need to be placed on higher dosage or insulin Will be sending on Lantus 5 in am and 10 in pm (2) Hypokalemia: Code(s): E87.6 - Hypokalemia Status: Acute Assessment and Plan: K+ 2.9 will receive 2 k ryders will recheck potassium level (12 noon) prior to discharge if returns to normal will go home on po potassium (3) Acute kidney injury: Code(s): N17.9 - Acute kidney failure, unspecified Status: Acute Assessment and Plan: Encourage oral intake trending down current creatinine 1.07 previous 1.48 (4) Acute hyperglycemia: Code(s): R73.9 - Hyperglycemia, unspecified Status: Acute Assessment and Plan: Initial blood sugar 699 currently 143...246 (5) Back pain: Qualifiers: Back pain laterality: unspecified Back pain location: back pain in unspecified location Chronicity: acute Qualified Code(s): M54.9 - Dorsalgia, unspecified Code(s): M54.9 - Dorsalgia, unspecified Status: Acute Assessment and Plan: Sciatica using walker Anti-inflammatory DS: Summary Hospital Course Hospital Course: This is a 81 year old female with new onset diabetes that was seen by her PCP and sent to the emergency room and was found to have a blood sugar greater than 599 and she was treated with IVF, and insulin. Patient HGB A1c 6.4 in 2020 and according to her PCP the HGA1c is 12.9. Patient was on 2nd round of steroids for sciatic and was doing ok. Patient was having issues with feel thirsty, and dry mouth. Mrs. Nesbitt had a stroke and was recovering well with minimal residual noted but was having sciatic . During this hospital stay patient was requiring long acting and short acting insulin. Patient blood sugars have improved and I was initially only going to send home with gipizide 2.5 only but sugar need to have more added. Patient GFR is high so metformin is not a option and due to patient not able to navigate the sliding scale well I have decided to place on long acting have her follow up with her primary care provider and to see how she manages. Patient will check blood sugars, home health and shot polisher has been ordered. Discussed with patient Daughter who is coming in from [place] to assist with her care until she is more stable. Called discussed with patient PCP nurse about the plan of care and she will follow up with his office. Prior to discharge patient labs were WBC is 9.0, hemoglobin 11.0, [place] 33.9, platelets 154 sodium 135, potassium 3.6, BUN 20 creatinine 0.89, glucose 270. Patient will go home with Lantus 10 at bedtime and 5 in the AM she will monitor her blood sugars and take that she to her primary care provider who he will address further changes. Patient states she is feeling a lot better than she has been and she does not have that excessive thirstiness. Patient is eating and drinking without any difficulties alert and oriented avoid steroids as much as possible. Time Spent with Patient Time attestation: Total time spent providing and/or coordinating discharge services: Exam Narrative: GENERAL:Well-appearing, well-nourished, and in no acute distress. HEAD:Normocephalic, atraumatic. EYES: PERRLA and EOMI. ENT: Nares clear, no rhinorrhea or epistaxis. Mucous membranes moist. CHEST: Clear to auscultation. No respiratory distress. HEART: Regular rate and rhythm. Normal peripheral pulses. ABDOM
[2022-01-31 11:35] LABS: Glucose Point of Care 309 mg/dl (65-105)
--- NOTE | 2022-01-31 15:21 | PC.NURSE ---
Pt discharged to home with CG and daughter. Vss. Discharge instructions given to pt and CG and daughter. Blood glucose monitoring reviewed, Insulin instructions reviewed, High and low blood sugars reviewed.
--- NOTE | 2022-02-05 10:55 | PC.NURSE ---
Unable to contact for discharge call back.
== END 2022-01-31 15:10 | disposition home health service (06) ==
LOC: CHSED 17:57 → CHS2ND 18:03
PROVIDERS: Nurse Practitioner; Nurse Practitioner Family; Admitting Provider Internal Medicine; Emergency Provider Emergency Medicine; PCP Internal Medicine; Visit Provider Internal Medicine
DX: E11.9 Type 2 diabetes mellitus without complications (principal); N17.9 Acute kidney failure, unspecified; E87.6 Hypokalemia; E78.5 Hyperlipidemia, unspecified; I69.354 Hemiplegia and hemiparesis following cerebral infarction affecting left non-dominant side; I10 Essential (primary) hypertension; M47.812 Spondylosis without myelopathy or radiculopathy, cervical region; M47.816 Spondylosis without myelopathy or radiculopathy, lumbar region; M54.30 Sciatica, unspecified side; F41.9 Anxiety disorder, unspecified; Z96.643 Presence of artificial hip joint, bilateral; Z96.651 Presence of right artificial knee joint
CPT/HCPCS: 36415; 36600; 80048; 80053; 81001; 82010; 82805; 82948; 83735; 85025; 85027; 87077; 87086; 87088; 87186; 96360; 96361; 96365; 96366; 96367; 96372; 99285; A9270; G0378; J0696; J1650; J1815; J3480; J7030

== ENCOUNTER 2022-03-21 13:00 | Outpatient (RCR) | payer MEDICARE, BC, SELFPAY ==
[2022-02-14 13:01] VITALS: BMI 33.6
[2022-02-14 13:03] VITALS: BMI 33.6
[2022-03-21 12:55] VITALS: BMI 32.6
[2022-03-21 12:59] VITALS: BMI 23.6
[2022-03-21 13:41] VITALS: BMI 32.6
== END 2022-04-29 13:16 | disposition home or self-care (01) ==
LOC: ANHDMC 13:00
PROVIDERS: PCP Internal Medicine; Visit Provider Internal Medicine
DX: E11.65 Type 2 diabetes mellitus with hyperglycemia (principal); Z71.89 Other specified counseling; Z71.3 Dietary counseling and surveillance
CPT/HCPCS: 97802; 97803; G0108

== ENCOUNTER 2022-04-05 13:01 | Outpatient (RCR) | payer MEDICARE, BC, SELFPAY ==
--- NOTE | 2022-04-08 13:48 | PTOPEVAL ---
Thank you for referring Ry Nesbitt to [facility].? The patient is scheduled to be seen for therapy? ____x/week for ___ weeks. Please review, sign, date and return this plan of care AZALEA. I agree with and certify that the following plan of care is medically necessary. Referring Physician Date Admitting Provider: Attending Provider: Kris Storey MD Referring Provider: *PT Outpatient Evaluation Start: 04/05/22 13:05 Freq: Status: Active Protocol: Document 04/05/22 13:05 [facility] (Rec: 04/05/22 14:23 [facility] [id number]) Therapy Assessment Status Assessment Status Assessment Status Evaluation Outpatient Past Medical History Neurological History Hx Cerebrovascular Accident (CVA) Yes: 2020 Cardiovascular History Hx Hypercholesterolemia Yes Hx Hypertension Yes Hx Other Cardiac Disorders Yes: holter monitor placed prior to admission Respiratory History Hx Respiratory Disorders No Significant History Gastrointestinal History Hx Gastrointestinal Disorders No Significant History Genitourinary History Hx Genitourinary Disorders No Significant History Musculoskeletal History Hx Arthritis Yes Hx Back Pain Yes Hx Joint Replacement Yes: Both knees and hips Hx Spinal Surgery Yes: Fusion of L spine 1997; cervical fusion 2014 Hx Other Musculoskeletal Disorders Yes: cervical-stenosis and myopathy Hematological History Hx Hematological Disorders No Significant History Endocrine History Hx Diabetes Yes: type 2 DM HEENT History Hx Cataracts Yes: both eyes have cataract removal Hx Dental Problems Yes: has full dentures Hx Other HEENT Disorders Yes: wears glasses Integumentary History Hx Skin Disorders No Significant History Reproductive History Hx Reproductive Disorders No Significant History Psychosocial History Hx Anxiety Yes Pain History Has Past Pain Affected Your Daily Life Yes History of Long-Term Prescription Pain Yes Medication Use (Opiates) Anesthesia History Hx Anesthesia Reactions No Significant History Evaluation Information Problem Diagnosis CVA, spinal stenosis Onset 03/22/22 Subjective Information Pt reports that she had a Query Text:As Reported By Patient/ stroke April [id number] and Family visited therapy to treat her stroke. She states that she has been sitting a lot more because when she left therapy last time, she was walking
--- NOTE | 2022-05-08 14:07 | PTOPEVAL ---
Thank you for referring Ry Nesbitt to [facility].? The patient is scheduled to be seen for therapy? ____x/week for ___ weeks. Please review, sign, date and return this plan of care AZALEA. I agree with and certify that the following plan of care is medically necessary. Referring Physician Date Admitting Provider: Attending Provider: Kris Storey MD Referring Provider: *PT Outpatient Evaluation Start: 04/05/22 13:05 Freq: Status: Active Protocol: Document 05/08/22 13:13 [facility] (Rec: 05/08/22 14:07 [facility] [email or web address]) Therapy Assessment Status Assessment Status Assessment Status Discharge Outpatient Past Medical History Neurological History Hx Cerebrovascular Accident (CVA) Yes: 2020 Cardiovascular History Hx Hypercholesterolemia Yes Hx Hypertension Yes Hx Other Cardiac Disorders Yes: holter monitor placed prior to admission Respiratory History Hx Respiratory Disorders No Significant History Gastrointestinal History Hx Gastrointestinal Disorders No Significant History Genitourinary History Hx Genitourinary Disorders No Significant History Musculoskeletal History Hx Arthritis Yes Hx Back Pain Yes Hx Joint Replacement Yes: Both knees and hips Hx Spinal Surgery Yes: Fusion of L spine 1997; cervical fusion 2014 Hx Other Musculoskeletal Disorders Yes: cervical-stenosis and myopathy Hematological History Hx Hematological Disorders No Significant History Endocrine History Hx Diabetes Yes: type 2 DM HEENT History Hx Cataracts Yes: both eyes have cataract removal Hx Dental Problems Yes: has full dentures Hx Other HEENT Disorders Yes: wears glasses Integumentary History Hx Skin Disorders No Significant History Reproductive History Hx Reproductive Disorders No Significant History Psychosocial History Hx Anxiety Yes Pain History Has Past Pain Affected Your Daily Life Yes History of Long-Term Prescription Pain Yes Medication Use (Opiates) Anesthesia History Hx Anesthesia Reactions No Significant History Evaluation Information Problem Diagnosis CVA, spinal stenosis Onset 03/22/22 Subjective Information patient reports she is feeling Query Text:As Reported By Patient/ well and happy to be walking. Family however, she reports she is still concerned with her fatigue with ambulation. Pain Assessment Timing of Pain Assessment Timing of Pain Assessment Assessment Self Report Self Report Pain Level 0 Pain Score
== END 2022-05-08 14:24 | disposition home or self-care (01) ==
LOC: CHSPT 13:01
PROVIDERS: PCP Internal Medicine; Visit Provider Internal Medicine
DX: M48.00 Spinal stenosis, site unspecified (principal); Z86.73 Personal history of transient ischemic attack (TIA), and cerebral infarction without residual deficits
CPT/HCPCS: 97110; 97112; 97161; 97530

== ENCOUNTER 2022-05-21 12:58 | Outpatient (RCR) | payer MEDICARE, SELFPAY | END 2022-08-05 11:12 | disposition home or self-care (01) | LOC: ANHDMC 12:58 | PROVIDERS: PCP Internal Medicine; Visit Provider Internal Medicine | DX: E11.65 Type 2 diabetes mellitus with hyperglycemia (principal); Z71.89 Other specified counseling | CPT/HCPCS: G0108 ==

== ENCOUNTER 2022-07-03 14:03 | Outpatient (RCR) | payer MEDICARE, SELFPAY ==
--- NOTE | 2022-07-03 15:35 | PTOPEVAL1 ---
Evaluation Information Assessment Status Evaluation Diagnosis spinal stenosis with gait disturbance Onset 06/27/22 Subjective Information Pt. reports that she went and saw her doctor recently and states that she expressed concern regarding her balance. She reports that she is still using a walker, but has been trying to walk short distance without her walker. She denies any recent falls. She states that she still has difficulty in the kitchen due to her fear of falling. She reports that she does have assistance in the home 4x/week but does stay home alone in the evening. She states that she recenly particpated in therapy which has helped her to become stronger. She felt that her progress was better when particpating in therapy in the past. She reports that her goal remains to walk with a cane and be able to discontinue use of her walker. Pt. granddaughter is present and states that she care for the pt. She reports that pt. continues to require assist with laundry and meal prep and balance remains a concern. Reported Pain Level Pain Score 0: Self Report Assessment PT Clinical Summary pt. is an 81 year old female who enters the clinic due to impaired gait. She presents with impaired gait, impaired l.e. strength and impaired balance on this date. Pt. has a goal to transition to cane use and discussed benefits of cane vs. walker with the family. Continued treatment is indicated in order to improve these areas to allow the pt. to be able to achieve her goal of ambulation with a cane. Plan of Care Interventions Gait Training,Neuro Re-education,Therapeutic Activities,Therapeutic Exercise PT Services Indicated Yes Treatment Frequency and 2x/week x 8 visits Duration These treatments will address the objective and functional deficits as defined above. The patient will be advanced safely and appropriately in order for the patient to progress towards his/her prior level of function. Additional exercises will be introduced and as well as a comprehensive home exercise program upon discharge, if needed, ?to ensure carryover of functional gains achieved in the clinic. This treatment plan has been reviewed and agreement upon by the patient.
--- NOTE | 2022-07-12 10:07 | OTOPEVAL1 ---
These treatments will address the objective and functional deficits as defined above. The patient will be advanced safely and appropriately in order for the patient to progress towards his/her prior level of function. Additional exercises will be introduced and as well as a comprehensive home exercise program upon discharge, if needed, ?to ensure carryover of functional gains achieved in the clinic. This treatment plan has been reviewed and agreement upon by the patient.
--- NOTE | 2022-08-02 15:03 | PTOPPROG ---
Assessment and note entered by Jacki Tinsley DPT Evaluation Information Assessment Status Progress Diagnosis Spinal stenosis, gait disturbance Onset 06/27/22 Subjective Information Pt reports that her L side feels weaker espeically since she worked out more yesterday. She has not had pain, just weakness. She reports that her balance is getting better but still needs work as she feels unsteady with her cane still. Denies falls since most recent session. She did not bring her cane in for today's session. Assessment PT Clinical Summary Pt presents to physical therapy with significant improvements in strength and mild improvements in static and dynamic balance since her initial evaluation. She is still limited in balance and somatosensory integration, and has noted difficulty still with interventions requiring visual suppression, altered surfaces, and a narrow base of support. She will benefit from continued skilled PT to further improve the pt's strength and balance, increase independence with functional and recreational activities, and decrease risk of falls especially with an SPC or no AD. Plan of Care PT Services Indicated Yes These treatments will address the objective and functional deficits as defined above. The patient will be advanced safely and appropriately in order for the patient to progress towards his/her prior level of function. Additional exercises will be introduced and as well as a comprehensive home exercise program upon discharge, if needed, ?to ensure carryover of functional gains achieved in the clinic. This treatment plan has been reviewed and agreement upon by the patient.
--- NOTE | 2022-08-19 14:02 | OTOPPROG ---
Assessment and note entered by Hermelinda Santos OT Evaluation Information Assessment Status Progress Assessment OT Clinical Summary The patient continues to require skilled OT to address current deficits of cutting meat at meals, fastening clothing clasps, fine motor coordination, dust mixer/pinch strength, and UE strength . The patient demonstrates significant progress in fine motor coordination, dust mixer strength, shoulder/ elbow/wrist strength and meal preparation affecting the patient's ability to perform self care tasks and maintain highest level of independence. The patient did not make progress in pinch strength due to continued progress toward goals and arthritis affecting stiffness and function of B hands. The patient demonstrates progress toward goals with reasonable expectation for improvement. The patient to continue to recieve skilled OT 2x/week for 10 visits. Plan of Care Interventions Therapeutic Exercise,Manual Therapy,Neuro Re- education,Therapeutic Activities,Hot Pack/Cold Pack,Electrical Stimulation,Self-Care/Home Management,Ultrasound OT Services Indicated Yes Treatment Frequency and 2x/week for 10 visits. Duration These treatments will address the objective and functional deficits as defined above. The patient will be advanced safely and appropriately in order for the patient to progress towards his/her prior level of function. Additional exercises will be introduced and as well as a comprehensive home exercise program upon discharge, if needed, ?to ensure carryover of functional gains achieved in the clinic. This treatment plan has been reviewed and agreement upon by the patient.
--- NOTE | 2022-09-25 15:00 | PTOPPROG ---
Assessment and note entered by Jacki Tinsley DPT Evaluation Information Assessment Status Progress Diagnosis Spinal stenosis, gait disturbance Onset 06/27/22 Subjective Information Pt reports that she has not had any falls recently . She continues to note weakness and fatigue. She notes the most unsteadiness with her balance when she is walking. Assessment PT Clinical Summary Pt presents to PT with significant improvements in strength, endurance, and dynamic balance since her last assessment. She is still limited in strength and static/dynamic balance and struggles with her balance especially with less support. She will benefit from skilled PT to further decrease risk for falls, improve the aforementioned impairments, and increases safety, efficiency, and independence with functional activities. Plan of Care PT Services Indicated Yes Treatment Frequency and 1x week for 6 visits Duration These treatments will address the objective and functional deficits as defined above. The patient will be advanced safely and appropriately in order for the patient to progress towards his/her prior level of function. Additional exercises will be introduced and as well as a comprehensive home exercise program upon discharge, if needed, ?to ensure carryover of functional gains achieved in the clinic. This treatment plan has been reviewed and agreement upon by the patient.
--- NOTE | 2022-09-30 14:47 | OTOPPROG ---
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 The patient did not make progress in pinch strength, cutting her meat during mealtimes due to patient's slight plateau and continued comorbidities that affect her ability to return to [facility]. The patient continues to require skilled OT to maintain current level of function and decrease the risk of decline. Due to slow progression with improvement in treatment, the patient will attend therapy 1x/week for 10 weeks to ensure proper completion of UE HEP and maintain current level of strength and coordination. Plan of Care Interventions Therapeutic Exercise,Manual Therapy,Neuro Re- education,Therapeutic Activities,Hot Pack/Cold Pack,Electrical Stimulation,Sensory Integrative Techn,Self-Care/Home Management,Ultrasound OT Services Indicated Yes Treatment Frequency and 1x/week for 10 visits. Duration These treatments will address the objective and functional deficits as defined above. The patient will be advanced safely and appropriately in order for the patient to progress towards his/her prior level of function. Additional exercises will be introduced and as well as a comprehensive home exercise program upon discharge, if needed, ?to ensure carryover of functional gains achieved in the clinic. This treatment plan has been reviewed and agreement upon by the patient.
== END 2022-09-30 18:00 | disposition still patient (30) ==
LOC: CHSPT 14:03
PROVIDERS: PCP Internal Medicine; Visit Provider Internal Medicine
DX: R53.1 Weakness (principal)
CPT/HCPCS: 97110; 97112; 97116; 97161; 97165; 97530

== ENCOUNTER 2022-08-22 12:21 | Outpatient (CLI) | payer MEDICARE, SELFPAY ==
[2022-08-22 13:52] LABS: Influenza A QL RT-PCR Negative (Negative); Influenza B QL RT-PCR Negative (Negative); SARS-CoV-2 RNA PCR Negative (Negative)
== END 2022-08-22 12:22 | disposition home or self-care (01) ==
LOC: CHSLAB 12:23
PROVIDERS: PCP Internal Medicine; Visit Provider Internal Medicine
DX: J06.9 Acute upper respiratory infection, unspecified (principal); Z20.822 Contact with and (suspected) exposure to COVID-19
CPT/HCPCS: 87502; C9803; U0003; U0005

== ENCOUNTER 2022-10-07 13:36 | Outpatient (RCR) | payer MEDICARE, SELFPAY ==
--- NOTE | 2022-11-13 13:49 | PTOPEVAL1 ---
Assessment and note entered by Mckay Oliveira Evaluation Information Assessment Status Progress Diagnosis spinal stenosis, gait disturbance Onset 06/27/22 Subjective Information Pt. reports she developed Covid over the holidays. She reports she had been very sick and unable to attend therapy. Pt. reports that she has been very lethargic. She reports she feels very weak. She states that she felt she was progressing prior to becoming ill. She states that she is feeling better, but notices that she is more weak. She reports that she has not been consistent with exercise due to haivng become ill. She reports that her goal remains to improve her balance and endurance. Reported Pain Level Pain Score 0: Self Report Assessment PT Clinical Summary Pt. re-enters the clinic 36 days from her last appointment due to having develped Covid. She demosntrates a slight regression with functional testing on this date. She currently presents with impaired balance, impaired gait, generalized l.e. weakness, and functional decline. Continued skilled PT is indicated in order to continue to improve these areas to allow for improved efficiency and safety with IADL's. Plan of Care Interventions Gait Training,Neuro Re-education,Therapeutic Activities,Therapeutic Exercise,Self-Care/Home Management PT Services Indicated Yes Treatment Frequency and 2x/week x 8 visits Duration These treatments will address the objective and functional deficits as defined above. The patient will be advanced safely and appropriately in order for the patient to progress towards his/her prior level of function. Additional exercises will be introduced and as well as a comprehensive home exercise program upon discharge, if needed, ?to ensure carryover of functional gains achieved in the clinic. This treatment plan has been reviewed and agreement upon by the patient.
--- NOTE | 2022-11-22 14:04 | OTOPREEVAL ---
Assessment and note entered by Hermelinda Santos, OT Evaluation Information Assessment Status Re-evaluation Diagnosis CVA Subjective Information The patient reports that in October she had COVID -19 and struggled to get her strength back. The patient reports that she has been trying to keep up with her hands while she has been gone and is excited to be back to participate in OT. Reported Pain Level Pain Score 0: Self Report Assessment OT Clinical Summary The patient is an 82 year old female who was referred to outpatient OT due to L UE weakness and fine motor coordination deficits. The patient continues to demonstrate deficits in cotton agent/pinch strength, fine motor coordination, gross motor coordination and ADLs of fastening closures. The patient demonstrates decreased UE endurance, fair fine motor and gross motor coordination demonstrating jerky movements during self care tasks, and inability to grasp items for leisure tasks. The patient requires skilled OT to address current deficits and improve function. Plan of Care Interventions Therapeutic Exercise,Manual Therapy,Neuro Re- education,Therapeutic Activities,Hot Pack/Cold Pack,Electrical Stimulation,Self-Care/Home Management,Ultrasound OT Services Indicated Yes Treatment Frequency and 1x/week for 10 visits. Duration These treatments will address the objective and functional deficits as defined above. The patient will be advanced safely and appropriately in order for the patient to progress towards his/her prior level of function. Additional exercises will be introduced and as well as a comprehensive home exercise program upon discharge, if needed, ?to ensure carryover of functional gains achieved in the clinic. This treatment plan has been reviewed and agreement upon by the patient.
--- NOTE | 2022-12-20 14:26 | PTOPREEVAL ---
Assessment and note entered by Malena Tucker DPT Evaluation Information Assessment Status Re-evaluation Diagnosis spinal stenosis, gait disturbance Onset 06/27/22 Subjective Information Patient reports she was able to walk around the [place] yesterday with her walker. She reports she feels like she is getting her strength and endurance back but reports she still notes she is nt quite back to where she was before getting sick. Reported Pain Level Pain Score 0: Self Report Assessment PT Clinical Summary Patient has been seen from 11/13/22- 12/20/22 during this evaluation period. She has made good progress towards goals at this time with improved strength and improved balance scores. She continues to report decrease LE strength and endurance but does report an improvement with prolonged ambulation. She would benefit from continued skilled PT to address remaining impairments and return to PLOF. Plan of Care Interventions Gait Training,Neuro Re-education,Therapeutic Activities,Therapeutic Exercise,Self-Care/Home Management PT Services Indicated Yes Treatment Frequency and 2x/week x 10 visits Duration These treatments will address the objective and functional deficits as defined above. The patient will be advanced safely and appropriately in order for the patient to progress towards his/her prior level of function. Additional exercises will be introduced and as well as a comprehensive home exercise program upon discharge, if needed, ?to ensure carryover of functional gains achieved in the clinic. This treatment plan has been reviewed and agreement upon by the patient.
== END 2023-01-06 17:37 | disposition still patient (30) ==
LOC: CHSPT 13:36
PROVIDERS: PCP Internal Medicine; Visit Provider Internal Medicine
DX: R53.1 Weakness (principal)
CPT/HCPCS: 97110; 97112; 97168; 97530; 97750

== ENCOUNTER 2023-04-03 12:11 | Outpatient (CLI) | payer MEDICARE, SELFPAY ==
--- NOTE | ~2023-04-03 | XR_ITS ---
Lumbosacral Spine: AP and lateral views Clinical History: Pain Findings: There is 33 degree dextroscoliosis of the lumbar spine. There is diffuse advanced facet art hropathy throughout the lumbar spine. There is moderate degenerative disc narrowing throughout the mg mbar spine. The sacroiliac joints are normally outlined. Impression: Dextroscoliosis and moderate to advanced degenerative change, as detailed above. Reviewed, dictated and finalized at location M. Impression: Dextroscoliosis and moderate to advanced degenerative change, as detailed above .
--- NOTE | ~2023-04-03 | XR_ITS ---
EXAMINATION: XR knee RT 3V DATE: 04/03/2023 12:43 INDICATION: Right leg pain. TECHNIQUE: 3 views of right knee were obtained. COMPARISON: Right knee radiographs 02/15/2009 FINDINGS: There is a total right knee arthroplasty with patellar resurfacing in near-anatomic alignme nt. No fracture. No periprosthetic lucency to suggest loosening or infection. No knee joint effusion. IMPRESSION: 1. Total right knee arthroplasty in near-anatomic alignment. Reviewed, dictated and finalized at location A.
--- NOTE | ~2023-04-03 | XR_ITS ---
EXAMINATION: XR hip RT min 2V DATE: 04/03/2023 12:43 INDICATION: Right leg and back pain. TECHNIQUE: 2 views of right hip were obtained. COMPARISON: Right hip radiographs 04/15/2013 FINDINGS: There is a total right hip arthroplasty in near-anatomic alignment. No fracture. No peripro sthetic lucency to suggest loosening or infection. There is severe lumbar spondylosis. IMPRESSION: 1. Total right hip arthroplasty in near-anatomic alignment. Reviewed, dictated and finalized at location A.
== END 2023-04-03 12:12 | disposition home or self-care (01) ==
LOC: CHSIMG 12:15
PROVIDERS: PCP Internal Medicine; Visit Provider Internal Medicine
DX: M54.50 Low back pain, unspecified (principal); M79.604 Pain in right leg; Z96.651 Presence of right artificial knee joint; Z96.641 Presence of right artificial hip joint; M41.87 Other forms of scoliosis, lumbosacral region
CPT/HCPCS: 72100; 73502; 73562

== ENCOUNTER 2023-04-22 13:05 | Outpatient (RCR) | payer MEDICARE, SELFPAY ==
--- NOTE | 2023-04-22 13:55 | PTOPEVAL1 ---
Assessment and note entered by JT File, PT Evaluation Information Assessment Status Evaluation Diagnosis sciatica, R side Onset 04/08/23 Subjective Information patient reports no injury, but a flare up of sciatica in the R side about 2 weeks ago. she reports she is on some new meds, and has been feeling better. she reports she has increased pain with some movements, sitting too long, and standing/walking. Reported Pain Level Pain Score 5: Self Report Assessment PT Clinical Summary mrs. marvin is an 82 yo woman who presents to skilled PT services for evaluation and treatment of R lower back pain/sciatica. she presents today with signs and symptoms of R sciatica from DDD of the lumbar spine. she would benefit from continued skilled PT to address her pain and deficits in rom, strength, posture, and gait mechanics to return to her prior level functional activity performance/quality of life. Plan of Care Interventions Electrical Stimulation,Gait Training,Hot Pack/Cold Pack,Manual Therapy,Neuro Re-education,Patient/ Caregiver Educati,Therapeutic Activities, Therapeutic Exercise PT Services Indicated Yes Treatment Frequency and 3x weekly for 6 visits Duration These treatments will address the objective and functional deficits as defined above. The patient will be advanced safely and appropriately in order for the patient to progress towards his/her prior level of function. Additional exercises will be introduced and as well as a comprehensive home exercise program upon discharge, if needed, ?to ensure carryover of functional gains achieved in the clinic. This treatment plan has been reviewed and agreement upon by the patient.
--- NOTE | 2023-04-22 13:55 | OPREHPOC ---
Outpatient Therapy Plan of Care This is a Multidisciplinary Plan of Care that may contain components documented by all disciplines (PT, OT, and ST.) PT Problem 1 PT Problem #1 Knowledge Deficit PT Goal 1 Goal 1. independent and compliant with HEP to improve tolerance for continued skilled PT and exercsies Target Visit 3 PT Problem 2 PT Problem #2 Pain PT Goal 1 Goal 1. patient to report less than 3/10 pain in the lower back 2. no R LE radicular symptoms in the last week Target Visit 6 PT Problem 3 PT Problem #3 Impaired Functional Mobil PT Goal 1 Goal 1. oswestry to display less than 30% functional deficits 2. patient to improve step/stride length during ambulation and complete 500ft during 6 minute walk test 3. patient to squat and lift small weight from step (5lbs or less) without pain and with safe stability. Target Visit 6 PT Problem 4 PT Problem #4 Impaired Strength PT Goal 1 Goal 1. improve core strength by 1/2 mm grade or better Target Visit 6
--- NOTE | 2023-05-07 13:25 | PTOPDC ---
Assessment and note entered by JT File, PT Evaluation Information Assessment Status Evaluation Diagnosis sciatica, R side Onset 04/08/23 Subjective Information patient reports the leg pain has subsided, but the lower back pain persists. she reports she is scheduled to have a nerve ablasion in the next couple of weeks. Reported Pain Level Pain Score 6: Self Report Assessment PT Clinical Summary mrs. marvin presents to skilled PT for her 6th skilled therapy visit for sciatica. she presents today with no radicular symptoms, but continued lower back pain. she has made progress towards all goals, and met several goals for skilled PT. however, she is scheduled to have an ablasion of part of the lumbar spine in the next few weeks. she will DC skilled PT today and continue with HEP independent at home until ablasion surgery. Plan of Care PT Services Indicated Yes
--- NOTE | 2023-05-07 13:25 | OPREHPOC ---
Outpatient Therapy Plan of Care This is a Multidisciplinary Plan of Care that may contain components documented by all disciplines (PT, OT, and ST.) PT Problem 1 PT Problem #1 Knowledge Deficit PT Goal 1 Goal 1. independent and compliant with HEP to improve tolerance for continued skilled PT and exercsies Target Visit 3 Progress Met PT Problem 2 PT Problem #2 Pain PT Goal 1 Goal 1. patient to report less than 3/10 pain in the lower back 2. no R LE radicular symptoms in the last week Target Visit 6 Progress Partially Met Comment met 2 PT Problem 3 PT Problem #3 Impaired Functional Mobil PT Goal 1 Goal 1. oswestry to display less than 30% functional deficits 2. patient to improve step/stride length during ambulation and complete 500ft during 6 minute walk test 3. patient to squat and lift small weight from step (5lbs or less) without pain and with safe stability. Target Visit 6 Progress Partially Met Comment met 2 PT Problem 4 PT Problem #4 Impaired Strength PT Goal 1 Goal 1. improve core strength by 1/2 mm grade or better Target Visit 6 Progress Partially Met Comment progress made
== END 2023-05-07 14:22 | disposition home or self-care (01) ==
LOC: CHSPT 13:05
PROVIDERS: PCP Internal Medicine; Visit Provider Internal Medicine
DX: M54.30 Sciatica, unspecified side (principal)
CPT/HCPCS: 97014; 97110; 97161; G0283

== ENCOUNTER 2023-10-22 13:44 | Outpatient (CLI) | payer MEDICARE, SELFPAY ==
--- NOTE | ~2023-10-22 | XR_ITS ---
XR chest 2V DATE: 10/22/2023 14:21 INDICATION: Persistent cough for 2 weeks TECHNIQUE: 2 views COMPARISON: None FINDINGS: Electronic monitor device is noted in the anterior left chest. Posterior cervical spinal fu manny hardware is noted. There is moderate elevation right leaf of diaphragm and discoid atelectasis or scarring at the right lower lung. The lungs otherwise appear clear. No pleural effusion or pulmonary vascular congestion or pneumothorax. No hilar or mediastinal enlargement. Heart size is within normal range. Is aortic arch calcification and thoracic aortic tortuosity. Diffuse osteopenia. Bilateral glenohumeral osteoarthritis. IMPRESSION: Moderate elevation right diaphragm and minimal discoid atelectasis or scarring at right l edwin base; otherwise no active cardiopulmonary disease Aortic atherosclerosis Reviewed, dictated and finalized at location A. LAYER HAND IMPRESSION: Moderate elevation right diaphragm and minimal discoid atelectasis or scarring at right lung base; otherwise no active cardiopulmonary disease Aortic atherosclerosis
[2023-10-22 14:10] LABS: Basophils Absolute Auto 0.05 K/mm3 (0.00-0.10); Basophils Percent Auto 0.4 % (0.0-1.0); Hematocrit 41.1 % (35.0-42.0); Hemoglobin 13.3 g/dL (11.7-13.8); Immature Granulocyte Absolute 0.05 K/mm3 (0.00-0.00); Immature Granulocyte Percent A 0.4 % (0.0-0.0); Lymphocytes Absolute Auto 3.82 K/mm3 (1.10-4.50); Lymphocytes Percent Auto 29.9 % (18.0-42.0); Mean Corpuscular HGB Conc 32.4 g/dL (32.0-36.0); Mean Corpuscular Volume 92.8 fL (78.0-102.0); Mean Platelet Volume 9.2 fl (9.2-11.8); Monocytes Percent Auto 10.2 % (2.0-11.0); Neutrophils Absolute Auto 7.6 K/mm3 (1.7-7.2); Neutrophils Percent Auto 59.1 % (50.0-70.0); Platelet Count Result 257 K/mm3 (150-420); Red Blood Count 4.43 M/mm3 (4.20-5.40); Red Cell Distribution Width 13.5 % (11.6-14.4); White Blood Count 12.8 K/mm3 (4.8-10.8)
[2023-10-22 14:32] LABS: Alanine Aminotransferase 32 U/L (14-59); Albumin Level 3.6 g/dL (3.4-5.0); Alkaline Phosphatase 140 U/L (46-116); Anion Gap 4 mmol/L (8-16); Aspartate Amino Transferase 17 U/L (15-37); Bilirubin,Total 0.6 mg/dL (0.00-1.00); Blood Urea Nitrogen 26 mg/dL (7-18); Calcium 9.1 mg/dL (8.5-10.1); Carbon Dioxide 37 mmol/L (21-32); Chloride 101 mmol/L (98-108); Estimated Glomerular Filt Rate 55; Glucose 92 mg/dL (70-99); Osmolality Calculated 298 mOsm/kg (285-295); Potassium 3.7 mmol/L (3.5-5.1); Sodium 142 mmol/L (136-145); Total Protein 7.6 g/dL (6.4-8.2)
[2023-10-22 14:33] LABS: CRP < 0.5 mg/dL (0.0-0.9)
== END 2023-10-22 13:45 | disposition home or self-care (01) ==
LOC: CHSLAB 13:48
PROVIDERS: PCP Internal Medicine; Visit Provider Internal Medicine
DX: R05.9 Cough, unspecified (principal); R91.8 Other nonspecific abnormal finding of lung field; I70.0 Atherosclerosis of aorta
CPT/HCPCS: 36415; 71046; 80053; 85025; 86140

== ENCOUNTER 2023-12-03 12:14 | Outpatient (CLI) | payer MEDICARE, SELFPAY ==
--- NOTE | ~2023-12-03 | XR_ITS ---
XR chest 2V DATE: 12/03/2023 13:10 INDICATION: Back pain TECHNIQUE: PA and lateral views COMPARISON: 10/22/2023 2 view chest FINDINGS: Heart size appears within normal range. Aortic calcification, ectasia and unfolding. Bibasilar pulmonary infiltrate or atelectasis. The lungs otherwise appear clear. No pleural effusion or pulmonary vascular congestion or pneumothorax. Chronic moderate elevation of the right diaphragm. Osteopenia. Status post posterior cervical spine surgical fusion. Levoscoliosis and prominent degenerative spurri ng of the thoracic spine. IMPRESSION: Bibasilar infiltrate or atelectasis Chronic moderate elevation right diaphragm Reviewed, dictated and finalized at location B. RITY ASSISTANT
--- NOTE | ~2023-12-03 | XR_ITS ---
XR thoracic spine 3V DATE: 12/03/2023 13:11 INDICATION: Back pain TECHNIQUE: AP, lateral, swimmer views COMPARISON: None FINDINGS: Status post posterior cervical spine surgical fusion of C3-C7. Diffuse osteopenia. There is mild dextro scoliosis of the upper and mid thoracic spine. There is levoscoliosis of the low er thoracic spine. Procedures degenerative spurring of the thoracic spine, particularly lower thoracic spine. There is m ultilevel prominent degenerative disease of the lower thoracic and included upper lumbar spine. No thoracic spine fracture or bone destruction is evident. The thoracic pedicles are intact. No maria dolores keena soft tissue thickening. Loop recorder overlies the anterior left chest. Thoracic and abdominal aortic calcification. IMPRESSION: Osteopenia Scoliosis Degenerative changes of the thoracic and lumbar spine No fracture or bone destruction is evident Reviewed, dictated and finalized at location B. S AND DISPLAYS SALESPERSON
--- NOTE | ~2023-12-03 | CT_ITS ---
EXAMINATION: CTA chest PE protocol DATE: 12/03/2023 14:43 INDICATION: Elevated d-dimer. Lower extremity swelling. TECHNIQUE: Computed tomography angiography (CTA) of the chest was performed with 100 mL Omnipaque-350 intravenous contrast timed to evaluate the pulmonary arteries. Coronal maximum intensity projection 3D-reconstructions were created by the technologist. Automated exposure control and iterative reconst ruction technique were employed. Exam dose: 346.13 mGy-cm total exam DLP. COMPARISON: 12/03/2023 2 view chest FINDINGS: There is diagnostic contrast enhancement of the pulmonary arteries and no evidence of pulmo nary embolism. Cardiomegaly. Coronary and aortic calcifications. No thoracic aortic aneurysm or dissection. No hi lar or mediastinal mass lesion or lymphadenopathy. Right hilar and subcarinal calcified lymph nodes consistent with old pulmonary granulomatous disease. Intrahepatic and extrahepatic bile duct dilatation. Moderate elevation the right leaf of the diaphrag m. Small sliding hiatal hernia. Primarily dependent upper and particularly lower lobe atelectasis, greatest in the right lung base du e to elevated diaphragm. Status post posterior cervical spine surgical fusion. Prominent degenerative changes of the cervical, thoracic and lumbar spine. No suspicious osteolytic o r osteoblastic lesions are noted. IMPRESSION: No evidence of pulmonary embolism Bilateral predominantly dependent upper and particularly lower lobe atelectasis Cardiomegaly Intrahepatic and extra hepatic bile duct dilatation Small sliding hiatal hernia Reviewed, dictated and finalized at Location A. Reviewed, dictated and finalized at location B. M PLANT RECORDS CLERK
--- NOTE | ~2023-12-03 | XR_ITS ---
XR lumbar spine 2-3V DATE: 12/03/2023 13:10 INDICATION: Back pain TECHNIQUE: AP, lateral, coned lateral lumbosacral views COMPARISON: None FINDINGS: Diffuse osteopenia. Levoscoliosis of the lower thoracic and upper lumbar spine. Severe degenerative disc disease throughout the lumbar and lumbosacral area. Included lower thoracic and lumbar pedicles are intact. No fracture or bone destruction of the lumbar spine is evident. Sacroiliac joints are intact. Bipolar replacements are noted bilaterally. IMPRESSION: Levoscoliosis of the thoracolumbar spine Severe multilevel degenerative disc disease of the lumbar spine Osteopenia Bilateral bipolar hip replacements Reviewed, dictated and finalized at location B. NG FRAME TENDER
[2023-12-03 12:39] LABS: Basophils Absolute Auto 0.03 K/mm3 (0.00-0.10); Basophils Percent Auto 0.2 % (0.0-1.0); Hematocrit 36.5 % (35.0-42.0); Immature Granulocyte Absolute 0.05 K/mm3 (0.00-0.00); Immature Granulocyte Percent A 0.4 % (0.0-0.0); Lymphocytes Absolute Auto 2.08 K/mm3 (1.10-4.50); Mean Corpuscular HGB Conc 32.9 g/dL (32.0-36.0); Mean Corpuscular Hemoglobin 29.7 pg (27.0-31.0); Mean Corpuscular Volume 90.3 fL (78.0-102.0); Mean Platelet Volume 8.7 fl (9.2-11.8); Monocytes Absolute Auto 1.68 K/mm3 (0.10-0.90); Monocytes Percent Auto 12.9 % (2.0-11.0); Neutrophils Absolute Auto 9.2 K/mm3 (1.7-7.2); Neutrophils Percent Auto 70.5 % (50.0-70.0); Platelet Count Result 295 K/mm3 (150-420); Red Blood Count 4.04 M/mm3 (4.20-5.40); Red Cell Distribution Width 13.3 % (11.6-14.4)
[2023-12-03 12:59] LABS: Albumin Level 2.8 g/dL (3.4-5.0); Alkaline Phosphatase 123 U/L (46-116); Anion Gap 9 mmol/L (8-16); Aspartate Amino Transferase 23 U/L (15-37); Bilirubin,Total 0.7 mg/dL (0.00-1.00); Blood Urea Nitrogen 23 mg/dL (7-18); Calcium 8.8 mg/dL (8.5-10.1); Carbon Dioxide 31 mmol/L (21-32); Chloride 98 mmol/L (98-108); Estimated Glomerular Filt Rate 59; Glucose 118 mg/dL (70-99); Osmolality Calculated 290 mOsm/kg (285-295); Potassium 3.4 mmol/L (3.5-5.1); Sodium 138 mmol/L (136-145); Total Protein 8.7 g/dL (6.4-8.2)
[2023-12-03 13:00] LABS: CRP 11.6 mg/dL (0.0-0.9)
[2023-12-03 13:08] LABS: Alanine Aminotransferase 28 U/L (14-59)
== END 2023-12-03 12:15 | disposition home or self-care (01) ==
PROVIDERS: PCP Internal Medicine; Visit Provider Internal Medicine
DX: M54.50 Low back pain, unspecified (principal); M79.89 Other specified soft tissue disorders; R79.1 Abnormal coagulation profile; J98.11 Atelectasis; I51.7 Cardiomegaly; K44.9 Diaphragmatic hernia without obstruction or gangrene; R91.8 Other nonspecific abnormal finding of lung field; M41.85 Other forms of scoliosis, thoracolumbar region; M51.36 Other intervertebral disc degeneration, lumbar region; M85.88 Other specified disorders of bone density and structure, other site; Z96.643 Presence of artificial hip joint, bilateral
CPT/HCPCS: 36415; 71046; 71275; 72072; 72100; 80053; 85025; 85380; 86140; Q9967

== ENCOUNTER 2023-12-04 10:23 | Outpatient (CLI) | payer MEDICARE, SELFPAY ==
--- NOTE | ~2023-12-04 | US_ITS ---
US venous doppler [facility] DATE: 12/04/2023 10:57 INDICATION: Bilateral lower extremity swelling. Elevated d-dimer. TECHNIQUE: Real-time and color flow imaging and Doppler analysis of the veins of the lower extremitie s COMPARISON: None FINDINGS: There is spontaneous and phasic flow and normal augmentation and color flow signal and norm al compression of the deep veins of both lower extremities. Approximately 2.1 x 2.1 x 1.8 cm left popliteal cyst. IMPRESSION: No evidence of deep venous thrombosis of the lower extremities Left popliteal cyst Reviewed, dictated and finalized at Location A. Reviewed, dictated and finalized at location L. TY SHERIFF CUSTODY
== END 2023-12-04 10:24 | disposition home or self-care (01) ==
LOC: CHSIMG 10:26
PROVIDERS: PCP Internal Medicine; Visit Provider Internal Medicine
DX: R79.1 Abnormal coagulation profile (principal); M79.89 Other specified soft tissue disorders; M71.22 Synovial cyst of popliteal space [Baker], left knee
CPT/HCPCS: 93970

== ENCOUNTER 2023-12-16 12:09 | Outpatient (CLI) | payer MEDICARE, SELFPAY ==
[2023-12-16 12:29] LABS: Basophils Absolute Auto 0.05 K/mm3 (0.00-0.10); Basophils Percent Auto 0.5 % (0.0-1.0); Eosinophils Absolute Auto 0.01 K/mm3 (0.02-0.50); Eosinophils Percent Auto 0.1 % (1.0-6.0); Hematocrit 38.2 % (35.0-42.0); Hemoglobin 12.4 g/dL (11.7-13.8); Immature Granulocyte Absolute 0.04 K/mm3 (0.00-0.00); Immature Granulocyte Percent A 0.4 % (0.0-0.0); Lymphocytes Absolute Auto 2.89 K/mm3 (1.10-4.50); Lymphocytes Percent Auto 28.3 % (18.0-42.0); Mean Corpuscular HGB Conc 32.5 g/dL (32.0-36.0); Mean Corpuscular Hemoglobin 29.7 pg (27.0-31.0); Mean Corpuscular Volume 91.6 fL (78.0-102.0); Mean Platelet Volume 8.6 fl (9.2-11.8); Monocytes Absolute Auto 0.76 K/mm3 (0.10-0.90); Monocytes Percent Auto 7.4 % (2.0-11.0); Neutrophils Absolute Auto 6.5 K/mm3 (1.7-7.2); Neutrophils Percent Auto 63.3 % (50.0-70.0); Platelet Count Result 239 K/mm3 (150-420); Red Blood Count 4.17 M/mm3 (4.20-5.40); Red Cell Distribution Width 13.9 % (11.6-14.4); White Blood Count 10.2 K/mm3 (4.8-10.8)
[2023-12-16 13:10] LABS: Alanine Aminotransferase 31 U/L (14-59); Albumin Level 3.3 g/dL (3.4-5.0); Alkaline Phosphatase 131 U/L (46-116); Anion Gap 10 mmol/L (8-16); Aspartate Amino Transferase 22 U/L (15-37); Bilirubin,Total 0.5 mg/dL (0.00-1.00); Blood Urea Nitrogen 34 mg/dL (7-18); Calcium 8.6 mg/dL (8.5-10.1); Carbon Dioxide 31 mmol/L (21-32); Chloride 102 mmol/L (98-108); Estimated Glomerular Filt Rate 59; Glucose 109 mg/dL (70-99); Osmolality Calculated 304 mOsm/kg (285-295); Sodium 143 mmol/L (136-145); Total Protein 7.4 g/dL (6.4-8.2)
[2023-12-16 13:15] LABS: CRP < 0.5 mg/dL (0.0-0.9)
== END 2023-12-16 12:10 | disposition home or self-care (01) ==
LOC: CHSLAB 12:12
PROVIDERS: PCP Internal Medicine; Visit Provider Internal Medicine
DX: M54.50 Low back pain, unspecified (principal)
CPT/HCPCS: 36415; 80053; 85025; 86140

== ENCOUNTER 2024-01-06 12:57 | Outpatient (RCR) | payer MEDICARE, SELFPAY ==
--- NOTE | 2024-01-06 14:50 | OPREHPOC ---
Outpatient Therapy Plan of Care This is a Multidisciplinary Plan of Care that may contain components documented by all disciplines (PT, OT, and ST.) PT Problem 1 PT Problem #1 Knowledge Deficit PT Goal 1 Goal patient to demonstrate independence with HEP Target Visit 5 PT Problem 2 PT Problem #2 Pain PT Goal 1 Goal 1. patient to report highest pain at 2/10 2. patient to report ability to sleep in bed rather than recliner due to low back pain Target Visit 10 PT Problem 3 PT Problem #3 Impaired Strength PT Goal 1 Goal Patient to demonstrate 4+/5 B LE strength to improve ability to lift LE's into car Target Visit 10 PT Problem 4 PT Problem #4 Impaired Functional Mobil PT Goal 1 Goal 1. patient to report ability to tie her shoes with no increase in low back pain 2. patient to demonstrate ability to ambulate 600' during 6 min walk test 3. patient to perform 5xSTS in <15 seconds with no use of UE's Target Visit 10
--- NOTE | 2024-01-06 14:51 | PTOPEVAL1 ---
Assessment and note entered by Malena Tucker DPT Evaluation Information Assessment Status Evaluation Diagnosis back pain, impaired balance Onset 12/27/23 Subjective Information patient reports in the middle the night she fell while trying to get up and felt her walker tip. she reports she fell onto the wood at the end of the couch. she was able to crawl to the chair and call her patient care associate. she reports she had x-rays that were negative. she reports she has had neck stiffness and L sided back pain since fall. she reports no falls since. she reports difficulty with reaching down to tie her shoes, walking for prolonged distances, and getting into and out of the car. she reports she uses a wheeled walker at all times. Reported Pain Level Pain Score 5,0: Self Report Assessment PT Clinical Summary Mrs. Nesbitt is an 83 year old female who presents to PT with decreased balance and back pain s/p fall within the home. Patient demonstrates decreased B LE strength, decreased balance and impaired gait limiting her ability to reach down to tie her shoes, walk for prolonged distances, and get into and out of the car. Patient would benefit from skilled PT to address impairments and return to PLOF. Plan of Care Interventions Gait Training,Hot Pack/Cold Pack,Manual Therapy, Neuro Re-education,Patient/Caregiver Educati, Therapeutic Activities,Therapeutic Exercise PT Services Indicated Yes Treatment Frequency and 2x weekly for 10 visits Duration These treatments will address the objective and functional deficits as defined above. The patient will be advanced safely and appropriately in order for the patient to progress towards his/her prior level of function. Additional exercises will be introduced and as well as a comprehensive home exercise program upon discharge, if needed, ?to ensure carryover of functional gains achieved in the clinic. This treatment plan has been reviewed and agreement upon by the patient.
--- NOTE | 2024-02-05 14:16 | OPREHPOC ---
Outpatient Therapy Plan of Care This is a Multidisciplinary Plan of Care that may contain components documented by all disciplines (PT, OT, and ST.) PT Problem 1 PT Problem #1 Knowledge Deficit PT Goal 1 Goal patient to demonstrate independence with HEP Target Visit 5 Progress Met PT Problem 2 PT Problem #2 Pain PT Goal 1 Goal 1. patient to report highest pain at 2/10 2. patient to report ability to sleep in bed rather than recliner due to low back pain Target Visit 18 Progress Not Met Comment progressing PT Problem 3 PT Problem #3 Impaired Strength PT Goal 1 Goal Patient to demonstrate 4+/5 B LE strength to improve ability to lift LE's into car Target Visit 18 Progress Not Met Comment progressing PT Problem 4 PT Problem #4 Impaired Functional Mobil PT Goal 1 Goal 1. patient to report ability to tie her shoes with no increase in low back pain 2. patient to demonstrate ability to ambulate 600' during 6 min walk test 3. patient to perform 5xSTS in <15 seconds with no use of UE's, met Target Visit 18 Comment progressing
--- NOTE | 2024-02-05 14:16 | PTOPREEVAL ---
Assessment and note entered by Malena Hernandez DPT Evaluation Information Assessment Status Re-evaluation Diagnosis back pain, impaired balance Onset 12/27/23 Subjective Information patient reports that she has much better since start of PT. she reports some improvement in balance. she reports HEP has gotten easier due to confidence and decreased pain. she has returned to donning her shoes by her self. she reports that she continues to feel weak and would like to continue with PT to improve ambulation endurance and confidence with balance. Reported Pain Level Pain Score 6: Self Report Assessment PT Clinical Summary Ms. Nesbitt has attended 10 visits of skilled PT from 01/06/24-02/05/24. She is progressing well towards goals at this time. She demonstrates improved balance and LE strength objectively and reports improved ability to don shoes and ambulate . She would benefit from continued skilled PT to decrease fall risk within her home and to improve ability to ambulate prolonged distances. Plan of Care Interventions Gait Training,Hot Pack/Cold Pack,Manual Therapy, Neuro Re-education,Patient/Caregiver Educati, Therapeutic Activities,Therapeutic Exercise PT Services Indicated Yes Treatment Frequency and continue 2x weekly for 8 visits Duration These treatments will address the objective and functional deficits as defined above. The patient will be advanced safely and appropriately in order for the patient to progress towards his/her prior level of function. Additional exercises will be introduced and as well as a comprehensive home exercise program upon discharge, if needed, ?to ensure carryover of functional gains achieved in the clinic. This treatment plan has been reviewed and agreement upon by the patient.
--- NOTE | 2024-02-19 10:09 | PCPTNOTE ---
Patient cancelled session this afternoon. Patient reports she got an injection in her knee yesterday and is hurting too bad today.
--- NOTE | 2024-03-18 13:49 | PCPTNOTE ---
03/18/24: Pt cx'd today's appt because she is not feeling well. -Lora Maurer, PT
--- NOTE | 2024-03-23 14:10 | OPREHPOC ---
Outpatient Therapy Plan of Care This is a Multidisciplinary Plan of Care that may contain components documented by all disciplines (PT, OT, and ST.) PT Problem 1 PT Problem #1 Knowledge Deficit PT Goal 1 Goal patient to demonstrate independence with HEP Target Visit 5 Progress Met PT Problem 2 PT Problem #2 Pain PT Goal 1 Goal 1. patient to report highest pain at 2/10. met 2. patient to report ability to sleep in bed rather than recliner due to low back pain. met Target Visit 18 Progress Met Comment . PT Problem 3 PT Problem #3 Impaired Strength PT Goal 1 Goal Patient to demonstrate 4+/5 B LE strength to improve ability to lift LE's into car Target Visit 18 Progress Not Met Comment . PT Problem 4 PT Problem #4 Impaired Functional Mobil PT Goal 1 Goal 1. patient to report ability to tie her shoes with no increase in low back pain. met 2. patient to demonstrate ability to ambulate 600' during 6 min walk test. not met 3. patient to perform 5xSTS in <15 seconds with no use of UE's, met Target Visit 18 Progress Partially Met Comment .
--- NOTE | 2024-03-23 14:10 | PTOPDC ---
Assessment and note entered by JT File, PT Evaluation Information Assessment Status Discharge Diagnosis back pain, impaired balance Onset 12/27/23 Subjective Information patient reports she is doing well. she reports she has had no falls, and has no pain in the back. she reports she got new shoes that are slip ons, and she has been able to get her shoes on and off on her own. Reported Pain Level Pain Score 0: Self Report Assessment PT Clinical Summary mrs. marvin presents to skilled PT for her 18th skilled PT visit for back pain and impaired balance from 01/06/24 - 03/23/24. she no longer has pain in the lower back. she also presents with improvement in LE strength, functional mobility, and balance. she displays decreased fall risk per the 5x sit to stand and TUG. she has met goals for HEP performance and pain, and made partial progress towards all other goals for skilled PT. she will DC skilled PT today, and continue with HEP independent and attend bi-weekly fall prevention class. Plan of Care PT Services Indicated Yes
== END 2024-03-23 17:29 | disposition home or self-care (01) ==
LOC: CHSPT 12:57
PROVIDERS: Visit Provider Internal Medicine
DX: M54.50 Low back pain, unspecified (principal); R26.9 Unspecified abnormalities of gait and mobility; Z91.81 History of falling
CPT/HCPCS: 97110; 97112; 97161; 97530; 97750

== ENCOUNTER 2024-02-14 09:50 | Outpatient (CLI) | payer MEDICARE, SELFPAY ==
--- NOTE | ~2024-02-14 | XR_ITS ---
EXAMINATION: XR knee LT 3V DATE: 02/14/2024 10:09 INDICATION: Left knee pain. TECHNIQUE: 3 views of left knee were obtained. COMPARISON: None. FINDINGS: Bone alignment is normal. No fracture. There is moderate osteoarthritis of medial compartme nt and mild osteoarthritis of lateral patellofemoral compartments. No knee joint effusion. IMPRESSION: 1. Moderate left knee osteoarthritis. Reviewed, dictated and finalized at location E.
== END 2024-02-14 09:51 | disposition home or self-care (01) ==
LOC: CHSIMG 09:53
PROVIDERS: PCP Internal Medicine; Visit Provider Internal Medicine
DX: M25.562 Pain in left knee (principal); M17.12 Unilateral primary osteoarthritis, left knee
CPT/HCPCS: 73562

== ENCOUNTER 2025-02-04 12:58 | Outpatient (RCR) | payer MEDICARE, SELFPAY ==
--- NOTE | 2025-02-04 14:07 | OPREHPOC ---
Outpatient Therapy Plan of Care This is a Multidisciplinary Plan of Care that may contain components documented by all disciplines (PT, OT, and ST.) PT Problem 1 PT Problem #1 Knowledge Deficit PT Goal 1 Goal / Goal Update independent and compliant with HEP Target Visit 6 PT Problem 2 PT Problem #2 Pain PT Goal 1 Goal / Goal Update decrease pain at worst to 5/10 or less in the lower back and LE's Target Visit 12 PT Problem 3 PT Problem #3 Impaired Strength PT Goal 1 Goal / Goal Update improve bilateral hip flex to 5/5 improve bilateral hip abd to 5/5 improve bilateral knee strength to 5/5 improve bilateral ankle DF to 5/5 Target Visit 12 PT Problem 4 PT Problem #4 Impaired Balance PT Goal 1 Goal / Goal Update tinetti to display moderate fall risk or less no falls in the last 4 weeks tug to be completed in under 20 seconds 5x sit to stand to be completed in under 15 seconds Target Visit 12 PT Problem 5 PT Problem #5 Impaired Functional Mobility PT Goal 1 Goal / Goal Update LEFS to display 30% or less functional deficits oswestry to display 30% or less functional deficits Target Visit 12
--- NOTE | 2025-02-04 14:07 | PTOPEVAL1 ---
Assessment and note entered by JT File, PT Evaluation Information Assessment Status Evaluation ICD-10 Condition Codes (PT) Pain in low back M54.50,Radiculopathy, lumbar region M54.16 Onset 02/01/25 Subjective Information patient reports she has generalized pain all over. she reports she just got a shot in the L knee this week. she reports the shot has helped tremendously. she reports with the rain recently her pain is increased. she reports she has gotten really weak, and due to her pain has gotten away from her exercises at home. she would like to get back to PT to improve her strength, endurance, and functional performance. she reports she had a fall about 1 month ago. she reports she was sitting down to a chair on rollers and just barely missed it. she was bruised, but had no broken bones. she reports she has no NTB in the legs. Reported Pain Level Pain Score 7,7: Self Report Assessment PT Clinical Summary mrs. marvin is a pleasant 84 yo woman who presents to skilled PT for evaluation and treatment of weakness and lumbar stenosis. she does not have any lumbar radiculopathy symptoms. she displays generalized LE weakness (worse on the L hip), unsteady balance/gait, and decreased activity endurance. continued skilled PT is indicated to improve her objective/functional deficits and progress a return to her prior level functional activity performance/quality of life. Plan of Care Interventions Gait Training,Hot Pack/Cold Pack,Manual Therapy, Neuro Re-education,Patient/Caregiver Education, Therapeutic Activities,Therapeutic Exercise PT Services Indicated Yes Treatment Frequency and 3x weekly for 12 visits Duration These treatments will address the objective and functional deficits as defined above. The patient will be advanced safely and appropriately in order for the patient to progress towards his/her prior level of function. Additional exercises will be introduced and as well as a comprehensive home exercise program upon discharge, if needed, ?to ensure carryover of functional gains achieved in the clinic. This treatment plan has been reviewed and agreement upon by the patient.
--- NOTE | 2025-03-09 14:42 | OPREHPOC ---
Outpatient Therapy Plan of Care This is a Multidisciplinary Plan of Care that may contain components documented by all disciplines (PT, OT, and ST.) PT Problem 1 PT Problem #1 Knowledge Deficit PT Goal 1 Goal / Goal Update independent and compliant with HEP Target Visit 6 Progress Met PT Problem 2 PT Problem #2 Pain PT Goal 1 Goal / Goal Update decrease pain at worst to 5/10 or less in the lower back and LE's Target Visit 12 Progress Not Met PT Problem 3 PT Problem #3 Impaired Strength PT Goal 1 Goal / Goal Update improve bilateral hip flex to 5/5 improve bilateral hip abd to 5/5 improve bilateral knee strength to 5/5 improve bilateral ankle DF to 5/5 Target Visit 12 Progress Not Met PT Problem 4 PT Problem #4 Impaired Balance PT Goal 1 Goal / Goal Update tinetti to display moderate fall risk or less no falls in the last 4 weeks tug to be completed in under 20 seconds 5x sit to stand to be completed in under 15 seconds Target Visit 12 Progress Not Met PT Problem 5 PT Problem #5 Impaired Functional Mobility PT Goal 1 Goal / Goal Update LEFS to display 30% or less functional deficits oswestry to display 30% or less functional deficits Target Visit 12 Progress Not Met
--- NOTE | 2025-03-09 14:42 | PTOPPROG ---
Assessment and note entered by Negar Pinon, PT Evaluation Information Assessment Status Progress ICD-10 Condition Codes (PT) Pain in low back M54.50,Radiculopathy, lumbar region M54.16 Onset 02/01/25 Subjective Information Pt reports her back pain is feeling better but her legs feel about the same. Assessment PT Clinical Summary Mrs. Nesbitt has attended 10 total skilled PT visits for low back pain and weakness. Since beginning therapy her low back pain has improved however she still experiences pain in her L leg primarily due to history of stroke affecting the left side. She also still demonstrates generalized LE weakness and continues to be at risk for falls. She will benefit from continued skilled PT intervention to continue progressing toward goals. Plan of Care Interventions Gait Training,Hot Pack/Cold Pack,Manual Therapy, Neuro Re-education,Patient/Caregiver Education, Therapeutic Activities,Therapeutic Exercise PT Services Indicated Yes Treatment Frequency and Continue per original POC Duration These treatments will address the objective and functional deficits as defined above. The patient will be advanced safely and appropriately in order for the patient to progress towards his/her prior level of function. Additional exercises will be introduced and as well as a comprehensive home exercise program upon discharge, if needed, ?to ensure carryover of functional gains achieved in the clinic. This treatment plan has been reviewed and agreement upon by the patient.
--- NOTE | 2025-03-21 14:47 | PTOPPROG ---
Assessment and note entered by Negar Pinon, PT Evaluation Information Assessment Status Progress ICD-10 Condition Codes (PT) Pain in low back M54.50,Radiculopathy, lumbar region M54.16 Onset 02/01/25 Subjective Information Mrs. Nesbitt reports she feels like she's getting stronger and her balance is improving with PT. She reports she does seated exercises at home as part of her HEP and per her caregiver she occasionally does standing exercises with supervision and guidance. Assessment PT Clinical Summary Mrs. Nesbitt has attended 12 total skilled PT visits for low back pain and weakness. Since beginning PT her lower extremity strength has improved slightly, and she has made mild improvements in her balance and functional mobility as reflected in improved TUG and 6MWT scores. Her pain tends to fluctuate however she had no pain today. She still demonstrates mild generalized LE weakness and remains at risk for falls per [place]. She will benefit from continued skilled PT intervention to continue progressing toward goals. Plan of Care Interventions Gait Training,Hot Pack/Cold Pack,Manual Therapy, Neuro Re-education,Patient/Caregiver Education, Therapeutic Activities,Therapeutic Exercise PT Services Indicated Yes Treatment Frequency and 3x/week for 9 additional visits Duration These treatments will address the objective and functional deficits as defined above. The patient will be advanced safely and appropriately in order for the patient to progress towards his/her prior level of function. Additional exercises will be introduced and as well as a comprehensive home exercise program upon discharge, if needed, ?to ensure carryover of functional gains achieved in the clinic. This treatment plan has been reviewed and agreement upon by the patient.
--- NOTE | 2025-04-15 14:33 | OPREHPOC ---
Outpatient Therapy Plan of Care This is a Multidisciplinary Plan of Care that may contain components documented by all disciplines (PT, OT, and ST.) PT Problem 1 PT Problem #1 Knowledge Deficit PT Goal 1 Goal / Goal Update independent and compliant with HEP Target Visit 6 Progress Met PT Problem 2 PT Problem #2 Pain PT Goal 1 Goal / Goal Update decrease pain at worst to 5/10 or less in the lower back and LE's Target Visit 12 Progress Met PT Problem 3 PT Problem #3 Impaired Strength PT Goal 1 Goal / Goal Update improve bilateral hip flex to 5/5 improve bilateral hip abd to 5/5 -met improve bilateral knee strength to 5/5 -met improve bilateral ankle DF to 5/5 Target Visit 12 Progress Partially Met PT Problem 4 PT Problem #4 Impaired Balance PT Goal 1 Goal / Goal Update tinetti to display moderate fall risk or less no falls in the last 4 weeks -met tug to be completed in under 20 seconds 5x sit to stand to be completed in under 15 seconds -progressing Target Visit 12 Progress Partially Met PT Problem 5 PT Problem #5 Impaired Functional Mobility PT Goal 1 Goal / Goal Update LEFS to display 30% or less functional deficits oswestry to display 30% or less functional deficits Target Visit 12 Progress Not Met
--- NOTE | 2025-04-15 14:33 | PTOPPROG ---
Assessment and note entered by Negar Pinon, PT Evaluation Information Assessment Status Progress ICD-10 Condition Codes (PT) Pain in low back M54.50,Radiculopathy, lumbar region M54.16 Onset 02/01/25 Subjective Information Mrs. Nesbitt reports she feels like she continues to get stronger with PT. She states she does a lot of her seated exercises at home and spends a lot of time sitting. Assessment PT Clinical Summary Mrs. Nesbitt presents today for her 20th skilled PT visit for low back pain with radiculopathy. She continues to make progress in her gait and balance . Her LE strength remains only slightly better at this time and she continues to demonstrate proximal hip weakness. She will benefit from continued skilled PT for gait, balance, strengthening and education on postural awareness and safety. Plan of Care Interventions Gait Training,Hot Pack/Cold Pack,Manual Therapy, Neuro Re-education,Patient/Caregiver Education, Therapeutic Activities,Therapeutic Exercise PT Services Indicated Yes Treatment Frequency and 3x/week for 6 additional visits Duration These treatments will address the objective and functional deficits as defined above. The patient will be advanced safely and appropriately in order for the patient to progress towards his/her prior level of function. Additional exercises will be introduced and as well as a comprehensive home exercise program upon discharge, if needed, ?to ensure carryover of functional gains achieved in the clinic. This treatment plan has been reviewed and agreement upon by the patient.
--- NOTE | 2025-04-18 13:29 | PCPTNOTE ---
Cancelled session. Reports she is not feeling well.
--- NOTE | 2025-05-02 14:54 | OPREHPOC ---
Outpatient Therapy Plan of Care This is a Multidisciplinary Plan of Care that may contain components documented by all disciplines (PT, OT, and ST.) PT Problem 1 PT Problem #1 Knowledge Deficit PT Goal 1 Goal / Goal Update independent and compliant with HEP Target Visit 6 Progress Met PT Problem 2 PT Problem #2 Pain PT Goal 1 Goal / Goal Update decrease pain at worst to 5/10 or less in the lower back and LE's Target Visit 12 Progress Met PT Problem 3 PT Problem #3 Impaired Strength PT Goal 1 Goal / Goal Update improve bilateral hip flex to 5/5 -progress improve bilateral hip abd to 5/5 -met improve bilateral knee strength to 5/5 -met improve bilateral ankle DF to 5/5 -progress Target Visit 12 Progress Partially Met PT Problem 4 PT Problem #4 Impaired Balance PT Goal 1 Goal / Goal Update tinetti to display moderate fall risk or less -met no falls in the last 4 weeks -met tug to be completed in under 20 seconds -progress 5x sit to stand to be completed in under 15 seconds -progressing Target Visit 12 Progress Partially Met PT Problem 5 PT Problem #5 Impaired Functional Mobility PT Goal 1 Goal / Goal Update LEFS to display 30% or less functional deficits oswestry to display 30% or less functional deficits Target Visit 12 Progress Not Met
--- NOTE | 2025-05-02 14:54 | PTOPDC ---
Assessment and note entered by Negar Pinon, PT Evaluation Information Assessment Status Discharge ICD-10 Condition Codes (PT) Pain in low back M54.50,Radiculopathy, lumbar region M54.16 Onset 02/01/25 Subjective Information Ry reports she feels like she's gotten a lot stronger and her postural awareness has also gotten better since starting PT. She feels most comfortable walking with her walker at this time and is motivated to continue her home exercises. Reported Pain Level Pain Score 0,6: Self Report Assessment PT Clinical Summary Mrs. Nesbitt has attended 26 skilled PT visits for lumbar radiculopathy and functional decline. Since beginning PT she has made improvements in her LE strength, balance and postural awareness. While she has made progress in these areas she does still demonstrate proximal LE weakness and gait deficits that increase pt's fall risk. At this time pt's progress has plateaued and it is recommended she continue HEP at home with assistance from caregiver. Will discharge from skilled PT this date and pt to return to doctor if she notices worsening weakness and gait. Also provided pt with a flyer for our fall prevention class. Plan of Care PT Services Indicated No
== END 2025-05-02 20:00 | disposition home or self-care (01) ==
LOC: CHSPT 12:58
PROVIDERS: PCP Internal Medicine; Visit Provider Internal Medicine
DX: M54.50 Low back pain, unspecified (principal); M54.16 Radiculopathy, lumbar region
CPT/HCPCS: 97110; 97112; 97150; 97161; 97530; 97750

== ENCOUNTER 2025-05-05 10:43 | Outpatient (CLI) | payer MEDICARE, SELFPAY ==
--- NOTE | 2025-05-05 | CONSULT_PTH ---
PATIENT: Ry Nesbitt LOC: [facility]#:[id number] AGE/SX: 84/F ROOM: RE05/05/[address]: Kris Storey MD : [id number] BED: DIS: 05/05/2025 SPEC #: [id number] RECD: 05/05/25 11:14 STATUS: KENYA REDalila #: [id number] DALIA: 05/05/25 00:[address]: Kris Storey DEPT: [facility] Consult RECD BY: Amanda Rust MLT, ([facility]) Tissues: A - Peripheral Smear Procedures: Hematology Consult
--- OUTSIDE RECORDS SUMMARY | 2025-05-05 10:47 | XMS_ITS | Referral Summary ---
Author Organization [facility] Address [address] [place] [address] Care Team Providers Care Volumetric Weigher Name Role Phone Kris Storey MD Primary Care Provider Sam Dodge MD Unavailable Encounters Date Type Department Care Team Description 04/26/2025 11:15 AM CDT Ancillary Procedure [facility] Medical [facility] Cardiology [address], [place] [address] Status post placement of implantable loop recorder (Primary Dx); Atrial fibrillation, unspecified type (HCC) 03/15/2025 8:45 AM CDT Ancillary Procedure [facility] Cardiology [address] [place] [address] Status post placement of implantable loop recorder (Primary Dx); Atrial fibrillation, unspecified type (HCC) from Last 3 Months Allergies Active Allergy Reactions Criticality Noted Date Comments Sulfa (Sulfonamide Antibiotics) Unknown 03/03 Midazolam Hallucinations Medium 03/20/2022 Medications atorvastatin (LIPITOR) 40 mg tablet Take 1 tablet (40 mg total) by mouth nightly at bedtime. [address] (CYMBALTA) 30 mg capsule Take 1 capsule (30 mg total) by mouth 2 (two) times a day 2 Active hydroCHLOROthia zide (HYDRODIURIL) 25 mg tablet Take 1 tablet (25 mg total) by mouth every morning 2 Active metoprolol XL (TOPROL-XL) 50 mg extended release tablet Take 1 tablet (50 mg total) by mouth 2 (two) times a day 2 Active potassium chloride ER 20 mEq CR tablet Take 1 tablet (20 mEq total) by mouth daily 2 Active metFORMIN (GLUCOPHAGE) 500 mg tablet TAKE 1 TABLET BY MOUTH EVERY AFTERNOON 2 Active senna-docusate (PERICOLACE) 8.6-50 mg Take 2 tablets by mouth daily Active aspirin 325 mg tablet Take 1 tablet (325 mg total) by mouth daily Active pumpkin seed extract-soy germ (Azo Bladder ControL) 300 mg capsule Take 2 capsules by mouth daily Active folic acid/multivit-m in/lutein (CENTRUM SILVER ORAL) Take 1 capsule by mouth daily Active melatonin 10 mg tablet Take 1 tablet (10 mg total) by mouth nightly Active meloxicam (MOBIC) 7.5 mg tablet Take 1 tablet (7.5 mg total) by mouth 2 (two) times a day 3 Active tiZANidine (ZANAFLEX) 2 mg tablet Take 1 tablet (2 mg total) by mouth nightly 3 Active gabapentin (NEURONTIN) 300 mg capsule Take 1 capsule (300 mg total) by mouth 3 (three) times a day 5 Active losartan (COZAAR) 50 mg tablet TAKE 1 TABLET BY MOUTH EVERY DAY 90 tablet 3 5 Active Active Problems Problem Noted Date Diagnosed Date Patent foramen ovale 10/25/2022 COVID-19 10/03/2022 Cerebral vascular disease 03/20/2022 Atrial fibrillation 03/20/2022 Anxiety 03/20/2022 Depression 03/20/2022 Hyperlipidemia 03/20/2022 Hypertension 03/20/2022 Rheumatoid arthritis 03/20/2022 Type 2 diabetes mellitus 11/03/2021 Social History Tobacco Use Types Packs/Day Years Used Date Smoking Tobacco: Never AUDIT-C Answer Date Recorded Frequency of Alcohol Consumption Not on file 10/25/2022 Q2: How many drinks containi ng alcohol do you have on a typical day when you are drinking? Patient does not drink 2 Frequency of Binge Drinking Not on file 10/04 Comments Unknown Sex and Gender Information Value Date Recorded Sex Assigned at Not on file Legal Sex Female 2:12 PM CDT Gender Identity Not on file Sexual Orientation Not on file Occupation Industry Job Start Date Job End Date Retired Not on file Not on file Not on file Last Filed Vital Signs Vital Sign Reading Time Taken Comments Blood Pressure 116/68 11/22/2024 11:07 AM CORRESPONDENCE DICTATOR Pulse 63 11/22/2024 11:07 AM CORRESPONDENCE DICTATOR Temperature - - Respiratory Rate - - Oxygen Saturation 97% 11/22/2024 11:07 AM CORRESPONDENCE DICTATOR Inhaled Oxygen Concentration - - Weight 71.2 kg (157 lb) 11/22/2024 11:07 AM CORRESPONDENCE DICTATOR Height 147.3 cm (4' 10) 11/22/2024 11:07 AM CORRESPONDENCE DICTATOR Body Mass Index 32.81 11/22/2024 11:07 AM CORRESPONDENCE DICTATOR Plan of Treatment Not on file Procedures Procedure Name Priority Date/Time Associated Diagnosis Comments DEVICE CHECK - REMOTE Routine 04/26/2025 8:42 AM CDT Atrial fibrillation, unspecified type (HCC) DEVICE CHECK - REMOTE Routine 03/15/2025 8:20 AM CDT Atrial fibrillation, unspecified type (HCC) POCT LIPID PANEL Routine 11/22/2024 12:5 6 PM CORRESPONDENCE DICTATOR Mixed hyperlipidemia from Last 3 Months or Most Recently Relevant to Health Maintenance Results * DEVICE CHECK - REMOTE (04/26/2025 8:42 AM CDT) Anatomical Region Laterality Modality Other Narrative 04/26/2025 8:19 PM CDT 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 Patient had a routine [facility] remote transmission of their implantable loop recorder on April 26, 2025. Medications: ASA 325 mg daily, Toprol XL 50 mg b.i.d. Interrogation of the patients device demonstrates that the Linq is functioning appropriately (0) Symptom events Auto Device detected events of, (0) Pause, (0) Bradycardia, (0) Tachy, (0) AT, (0) AF, Presenting Rhythm: Sinus bradycardia at 58 bpm Battery: Good Plan: 1) Routine Remote with no new events. 2) Continue to monitor remotely. 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 Patient had a routine [facility] remote transmission of their implantable loop recorder on March 15, 2025. Medications: ASA 325 mg daily, Toprol XL 50 mg b.i.d. Interrogation of the patients device demonstrates that the Linq is functioning appropriately (0) Symptom events Auto Device detected events of, (0) Pause, (0) Bradycardia, (0) Tachy, (0) AT, (0) AF, Presenting Rhythm: Normal Sinus Rhythm at 62 bpm. Battery: Good Plan: 1) Routine Remote with no new events. 2) Continue to monitor remotely. Ricky [place] [employer] Device Manager [employer] us Sam Dodge MD [facility] PROC EDURES Final Result * (ABNORMAL) POCT lipid panel (11/22/2024 12:56 PM CORRESPONDENCE DICTATOR) HDL, POC 50(A) > - 40 mg/dL Triglycerides, POC 76 < - 150 mg/dL LDL Cholesterol POC 47 < - 100 mg/dL Chol/HDL Ratio, POC 1.0 < - 5.0 Non-HDL Cholesterol, POC 63 < - 130 mg/dL Cholesterol Total, POC 112 < - 200 mg/dL Capillary blood 11/22/2024 1 2:56 PM CORRESPONDENCE DICTATOR us Sam Dodge MD POINT OF CARE TEST ORDER IMELDA Final Result from Last 3 Months or Most Recently Relevant to Health Maintenance Insurance MEDICARE MEDICARE [facility] MEDICARE SUPPLEMENT Care Teams Volumetric Weigher Relationship Specialty Start Date End Date Kris Storey MD PCP - General Internal Medicine 03/20/22 Sam Dodge MD [id number] [place] [address] Residential Building Inspector Cardiology 03/20/23
--- OUTSIDE RECORDS SUMMARY | 2025-05-05 10:47 | XMS_ITS | Clinical Summary ---
Author Organization [facility] Address [address] [place] [address] Care Team Providers Care Post Hole Digging Machine Operator Name Role Phone Kris Storey MD Primary Care Provider [phone] Sam Dodge MD Unavailable [phone] Allergies Active Allergy Reactions Criticality Noted Date [...] arthritis 03/20/2022 Type 2 diabetes mellitus 11/03/2021 Encounters Date Type Department Care Team Description 04/26/2025 11:15 AM CDT Ancillary Procedure [facility] Cardiology [address] [place] [phone] Status post placement of implantable loop recorder (Primary Dx); Atrial fibrillation, unspecified type (HCC) 03/15/2025 8:45 AM CDT Ancillary Procedure [facility] Cardiology [address] [place] [phone] Status post placement of implantable loop recorder (Primary Dx); Atrial fibrillation, unspecified type (HCC) from Last 3 Months Surgical History Surgery Date Site/Laterality Comments OTHER SURGICAL HISTORY 11/03/2020 - 11/02/2021 Loop KNEE ARTHROPLASTY HIP ARTHROPLASTY Bilateral CERVICAL FUSION LUMBAR FUSION Bilateral CHOLECYSTECTOMY HYSTERECTOMY Medical History Medical History Date Comments Cerebral vascular disease 04/2021 Atrial fibrillation Hypertension Hyperlipidemia Type 2 diabetes mellitus 2021 Anxiety Depression Rheumatoid arthritis Patent foramen ovale Covid-19 10/2022 Family History Medical History Relation Name Comments No Known Problems Father Stroke Maternal Grandfather No Known Problems Maternal Grandmother No Known Problems Mother No Known Problems Paternal Grandfather No Known Problems Paternal Grandmother Relation Name Status Comments Father Maternal Grandfather Maternal Grandmother Mother Paternal Grandfather Paternal Grandmother Social History Tobacco Use Types Packs/Day Years Used Date Smoking Tobacco: Never AUDIT-C Answer Date Recorded Frequency of Alcohol Consumption Not on file 10/25/2022 Q2: How many drinks containi ng alcohol do you have on a typical day when you are drinking? Patient does not drink Frequency of Binge Drinking Not on file 10/04 Comments Unknown Sex and Gender Information Value Date Recorded Sex Assigned at Not on file Legal Sex Female 2:12 PM CDT Gender Identity Not on file Sexual Orientation Not on file Occupation Industry Job Start Date Job End Date Retired Not on file Not on file Not on file Obstetrics History Last Filed Vital Signs Vital Sign Reading Time Taken Comments Blood Pressure 116/68 11/22/2024 11:07 AM MORTGAGE LOAN ASSISTANT Pulse 63 11/22/2024 11:07 AM MORTGAGE LOAN ASSISTANT Temperature - - Respiratory Rate - - Oxygen Saturation 97% 11/22/2024 11:07 AM MORTGAGE LOAN ASSISTANT Inhaled Oxygen Concentration - - Weight 71.2 kg (157 lb) 11/22/2024 11:07 AM MORTGAGE LOAN ASSISTANT Height 147.3 cm (4' 10) 11/22/2024 11:07 AM MORTGAGE LOAN ASSISTANT Body Mass Index 32.81 11/22/2024 11:07 AM MORTGAGE LOAN ASSISTANT Plan of Treatment Health Maintenance Due Date Last Done Comments Albumin Creatinine Ratio, Urine 1938 Depression Screening 1938 Fall Risk Assessment 1938 Hemoglobin A1C 1938 Osteoporosis Screening-Bone Density Scan 1938 eGFR 1938 Dilated Eye Exam 1938 Foot Exam 1938 DTaP/Tdap/Td Vaccine (1 - Tdap) 1949 Hepatitis B Screening 1956 Pneumococcal vaccine 65+ (1 of 2 - PCV) 1957 Zoster Vaccine (1 of 2) 1988 Well Visit 65+ 2003 Covid-19 Vaccine (5 - 2023-2 5 season) 2024 03/08/2022, 09/21/2021, 12/29/2020, Additional history exists Influenza Vaccine (Season Ended) 2025 Lipid Panel 11/22/2025 11/22/2024 Procedures Procedure Name Priority Date/Time Associated Diagnosis Comments DEVICE CHECK - REMOTE Routine 04/26/2025 8:42 AM CDT Atrial fibrillation, unspecified type (HCC) DEVICE CHECK - REMOTE Routine 03/15/2025 8:20 AM CDT Atrial fibrillation, unspecified type (HCC) POCT LIPID PANEL Routine 11/22/2024 12:5 6 PM MORTGAGE LOAN ASSISTANT Mixed hyperlipidemia from Last 3 Months or [...] Continue to monitor remotely. Ricky Bennett Device Residential Director us aSm Dodge MD [facility] PROC EDURES [...] events. 2) Continue to monitor remotely. Ricky Ivanamy Device Residential Director us Sam Dodge MD CV C[facility] SERVICES PROC EDURES Final Result * (ABNORMAL) POCT lipid panel (11/22/2024 12:56 PM MORTGAGE LOAN ASSISTANT) HDL, POC 50(A) > - 40 mg/dL Triglycerides, POC 76 < - 150 mg/dL LDL Cholesterol POC 47 < - 100 mg/dL Chol/HDL Ratio, POC 1.0 < - 5.0 Non-HDL Cholesterol, POC 63 < - 130 mg/dL Cholesterol Total, POC 112 < - 200 mg/dL Capillary blood 11/22/2024 1 2:56 PM MORTGAGE LOAN ASSISTANT us Sam Dodge MD POINT OF CARE TEST ORDER IMELDA Final Result from Last 3 Months or Most Recently Relevant to Health Maintenance Insurance MEDICARE MEDICARE [facility] MEDICARE SUPPLEMENT Care Teams Post Hole Digging Machine Operator Relationship Specialty Start Date End Date Kris Storey MD PCP - General Internal Medicine 03/20/22 Sam Dodge MD [address] [address] [employer]asting [employer] [facility]aster Cardiology 03/20/23
--- OUTSIDE RECORDS SUMMARY | 2025-05-05 10:47 | XMS_ITS | Clinical Summary ---
Author Organization [facility] Address [address] [place] [address] Care Team Providers Care Fancy Needleworker Name Role Phone Kris Storey MD Primary Care Provider [phone] Home Skelton MD Unavailable Unava ilable Allergies Active Allergy Reactions Criticality Noted Date Comments Midazolam Hallucinations 04/21/2021 Medications Multiple Vitamins-Minera ls (CENTRUM SILVER) Tab Take 1 tablet by mouth daily. Active metoprolol tartrate 50 MG tablet Take 50 mg by mouth 2 (two) times daily. 04/16/2021 Active Calcium 250 MG Cap Calcium with Vitamin D3 600mg/20mcg daily Active amLODIPine 10 MG tablet Take 10 mg by mouth daily. Active senna-docusate 8.6-50 MG tablet Take 1 tablet by mouth daily. Active melatonin 5 MG tablet Take 5 mg by mouth nightly at bedtime. Active aspirin 325 MG tablet Take 1 tablet (325 mg total) by mouth daily. 30 tablet 04/25/2021 Active atorvastatin 40 MG tablet Take 1 tablet (40 mg total) by mouth nightly at bedtime. 30 tablet 04/24/2021 Active acetaminophen 325 MG tablet Take 2 tablets (650 mg total) by mouth every 4 (four) hours as needed. 30 tablet 04/24/2021 Active hydroCHLOROthia zide 25 MG tablet Take 1 tablet (25 mg total) by mouth every morning. 30 tablet 04/24/2021 Active DULoxetine 20 MG capsule Take 20 mg by mouth 2 (two) times daily. Active AZO-CRANBERRY OR Active hydrOXYzine 25 MG tablet 06/14/2021 Active potassium chloride CR 20 MEQ tablet 09/29/2021 Active Active Problems Problem Noted Date Diagnosed Date PFO (patent foramen ovale) ([facility]) 06/22/2021 Hypertension 06/22/2021 Acute embolic stroke ([facility]) Family History Medical History Relation Comments CHF Father [place] Father Relation Status Comments Father Social History Tobacco Use Types Packs/Day Years Used Date Smoking Tobacco: Never Smokeless Tobacco: Never Comments:nonsmoker Alcohol Use Standard Drinks/Week Comments Yes 0 (1 standard drink = 0.6 oz pur e alcohol) rare drink of wine PHQ-2 Answer Date Recorded PHQ-2 Score - If the patient scores above 3, please move on to questions 3-9 0 06/21/2021 Comments No Sex and Gender Information Value Date Recorded Sex Assigned at Not on file Legal Sex Female 4:48 PM CDT Gender Identity Not on file Sexual Orientation Not on file Last Filed Vital Signs Vital Sign Reading Time Taken Comments Blood Pressure 158/74 10/04/2021 3:08 PM SCHEDULER CONVEYOR Pulse 60 10/04/2021 3:08 PM SCHEDULER CONVEYOR Temperature 35.8 C (96.4 F) 07/02/2021 12:52 PM CDT Respiratory Rate 20 10/04/2021 3:08 PM SCHEDULER CONVEYOR Oxygen Saturation 97% 10/04/2021 3:08 PM SCHEDULER CONVEYOR Inhaled Oxygen Concentration - - Weight 69.4 kg (153 lb) 10/04/2021 3:08 PM SCHEDULER CONVEYOR Height 152.4 cm (5') 10/04/2021 3:08 PM SCHEDULER CONVEYOR Body Mass Index 29.88 10/04/2021 3:08 PM SCHEDULER CONVEYOR Plan of Treatment Health Maintenance Due Date Last Done Comments DTaP, Tdap and Td Vaccines ( 1 - Tdap) 1957 Zoster Vaccines (1 of 2) 1988 Annual Medicare Wellness Visit 2003 RSV Immunization or 60+ Years (1 - 1-dose 75+ series) 2013 Pneumococcal Vaccine: 50+ Years (2 of 2 - PPSV23) 08/31/2020 08/31/2019 COVID-19 Vaccine (3 - 2023-2 5 season) 2024 12/29/2020, 12/01/2020 Meningococcal B Vaccine Aged Out No l onger eligible based on patient's age to complete this topic Meningococcal Vaccine Aged Out No daniel kena eligible based on patient's age to complete this topic RSV Immunizations Under 20 Months Aged Out No longer eligible b ased on patient's age to complete this topic Medical Devices Implanted Type Area Blow Torch Burner Device Identifier Shelf Expiration Date Model / Serial / Lot Medtronic Linq Ii Implantable Loop Recorder- [id number] Implanted:07/02 by Home Skelton MD (Quantity not on file) Implantable Loop Recorder [employer] 08/13/2022 [id number] / [id number] / Description:MRI Conditional under following conditions: Static magnetic field of 1.5 T or 3 T, Max spatial gradient field of 2500 Gauss/cm or less, Max slew rate 200 T/m/s , Max whole body DERIK of 4 W/kg or less, Head DERIK 3.2 W/kg or less , Do not place local transmit coils over chest, trunk , or shoulder region Insurance MEDICARE [facility] Advance Directives Documents on File Type Date Recorded Patient Golf Club Manager Expl anation Advance Directives and Living Will 09/11/2015 12:00 AM POWER OF CONSUMER MARKETING ANALYST FO R HEALTH CARE Advance Directives and Living Will 09/11/2015 12:00 AM 06/25/2006 [facility] Advance Directives and Living Will 08/14/2015 12:00 AM POWER OF CONSUMER MARKETING ANALYST FO R HEALTH CARE Advance Directives and Living Will 08/14/2015 12:00 AM POWER OF CONSUMER MARKETING ANALYST FO R HEALTH CARE Advance Directives and Living Will 04/17/2015 SHORT FORM POWER OF CONSUMER MARKETING ANALYST * Full Code (Latest Code Status on File) Date Activated Date Inactivated Comments 04/21/2021 10:11 PM 04/24/2021 6:18 PM Care Teams Fancy Needleworker Relationship Specialty Start Date End Date Kris Storey MD [address] [place] [address] PCP - General INTERNAL MEDICINE 04/21/21 Home Skelton MD [address] [place] [address] Consulting Physician CLINICAL CARDIAC ELECTROPHYSIOLOGY 06/21/21
[2025-05-05 11:24] LABS: Hematocrit 35.9 % (35.0-42.0); Hemoglobin 11.3 g/dL (11.7-13.8); Immature Reticulocyte Fraction 21.5 % (2.0-16.52); Mean Corpuscular HGB Conc 31.5 g/dL (32-36); Mean Corpuscular Hemoglobin 30.1 pg (27.0-31.0); Mean Corpuscular Volume 95.5 fL (78.0-102.0); Platelet Count Result 222 K/mm3 (150-420); Red Blood Count 3.76 M/mm3 (4.20-5.40); Reticulocyte Hemoglobin Conten 34.3 pg (28.0-35.0); Reticulocytes Absolute 0.06 M/mm3 (0.02-0.10); White Blood Count 9.7 K/mm3 (4.8-10.8)
[2025-05-05 11:44] LABS: Iron 64 ug/dL (37-170)
[2025-05-05 11:53] LABS: Percent Iron Saturation 17 % (20-50)
[2025-05-05 12:20] LABS: Ferritin 22.40 ng/mL (11.1-264)
[2025-05-06 11:09] LABS: Red Blood Cell Folate 779 ng/mL RBC (>280)
== END 2025-05-05 10:44 | disposition home or self-care (01) ==
LOC: CHSLAB 10:45
PROVIDERS: PCP Internal Medicine; Visit Provider Internal Medicine
DX: D64.9 Anemia, unspecified (principal)
CPT/HCPCS: 36415; 82728; 82747; 83540; 83550; 83921; 85027; 85046

== ENCOUNTER 2025-09-01 12:25 | Outpatient (CLI) | payer MEDICARE, SELFPAY ==
--- NOTE | ~2025-09-01 | XR_ITS ---
XR lumbar spine 2-3V Indication: CONTINUOUS SEVERE LFT LEG PAIN Comparison: None Findings: Levoconvex scoliosis. Moderate loss of vertebral height throughout. No fracture or subluxation. Severe loss of disc height throughout. Soft tissues unremarkable Impression: No acute abnormality. Reviewed, dictated and finalized at location P. Impression: No acute abnormality.
--- NOTE | ~2025-09-01 | XR_ITS ---
EXAMINATION: XR hip LT min 2V DATE: 09/01/2025 13:18 INDICATION: Continuous severe left leg pain TECHNIQUE: 2 images of the left hip were obtained. COMPARISON: 04/21/2017. FINDINGS: Bones appear osteopenic which lowers the sensitivity of the study. Moderate dextroconvex curvature of the lumbar spine. Probable calcifications project over the pelvis. Vascular calcifications are noted. Left hip arthroplasty. No fracture. No dislocation. Nonspecific lucency in the acetabulum about the femoral component of the left hip arthroplasty. The finding is new as compared to the study from 04/21/2017. Correlate clinically. IMPRESSION: 1. Nonspecific lucency in the acetabulum about the femoral component of the left hip arthroplasty. The finding is new as compared to the study from 04/21/2017. Correlate clinically. 2. No fracture. No dislocation. If symptoms persist or worsen, consider a short-term follow-up study or additional imaging for further assessment. Reviewed, dictated and finalized at location Q. IMPRESSION: 1. Nonspecific lucency in the acetabulum about the femoral component of the lef t hip arthroplasty. The finding is new as compared to the study from 04/21/2017. Correlate clinically. 2. No fracture. No dislocation. If symptoms persist or worsen, consider a short-term follow-up study or additio nal imaging for further assessment.
--- NOTE | ~2025-09-01 | XR_ITS ---
EXAMINATION: XR knee LT 3V, 09/01/2025 13:00 CDT HISTORY: CONTINUOUS SEVERE LFT LEG PAIN COMPARISON: No comparisons available. Findings: No acute fracture or malalignment. Severe tricompartmental degenerative changes with small effusion. Soft tissues unremarkable. Impression: No acute fracture or malalignment. Reviewed, dictated and finalized at location P. Impression: No acute fracture or malalignment.
[2025-09-01 12:48] LABS: Hematocrit 34.2 % (35.0-42.0); Hemoglobin 10.7 g/dL (11.7-13.8); Immature Granulocyte Percent A 0.2 % (0.0-0.0); Lymphocytes Absolute Auto 2.57 K/mm3 (1.10-4.50); Mean Corpuscular HGB Conc 31.3 g/dL (32-36); Mean Corpuscular Hemoglobin 29.6 pg (27.0-31.0); Mean Corpuscular Volume 94.5 fL (78.0-102.0); Nucleated Red Blood Cells Absolute Auto 0.00 K/mm3 (0.00-0.00); Nucleated Red Blood Cells Perc 0.0 % (0-0.0); Platelet Count Result 188 K/mm3 (150-420); Red Blood Count 3.62 M/mm3 (4.20-5.40); White Blood Count 8.6 K/mm3 (4.8-10.8)
--- OUTSIDE RECORDS SUMMARY | 2025-09-01 13:07 | XMS_ITS | Clinical Summary ---
Author Organization [facility] Address [address] [place] [address] Care Team Providers Care Employee Counselor Name Role Phone Kris Storey MD Primary Care Provider [phone] Sam Dodge MD Unavailable [phone] Allergies Active Allergy Reactions Criticality Noted Date [...] EVERY DAY 90 tablet 3 5 Active traMADoL (ULTRAM) 50 mg tablet Take 1 tablet (50 mg total) by mouth every 6 (six) hours as needed for pain Active Active Problems Problem Noted Date Diagnosed Date Patent foramen ovale 10/25/2022 COVID-19 10/03/2022 Cerebral vascular disease 03/20/2022 Atrial fibrillation 03/20/2022 Anxiety 03/20/2022 Depression 03/20/2022 Hyperlipidemia 03/20/2022 Hypertension 03/20/2022 Rheumatoid arthritis 03/20/2022 Type 2 diabetes mellitus 11/03/2021 Encounters Date Type Department Care Team Description 08/30/2025 9:15 AM CDT Ancillary Procedure [facility] Cardiology [address] [place] [phone] Status post placement of implantable loop recorder (Primary Dx); Atrial fibrillation, unspecified type (HCC) 08/30/2025 Telephone [facility] Cardiology [address] [place] [phone] Sam Dodge MD 2025 1:00 PM CDT Office Visit [facility] Cardiology [address] [place] [phone] Sam Dodge MD Primary hypertension (Primary Dx); Mixed hyperlipidemia; Patent foramen ovale 07/19/2025 11:30 AM CDT Ancillary Procedure [facility] Cardiology [address] [facility] [address] [place] [address] Status post placement of implantable loop recorder (Primary Dx); Atrial fibrillation, unspecified type (HCC) 06/07/2025 8:30 AM CDT Ancillary Procedure [facility] Cardiology [address] [facility] [address] [place] [address] Status post placement of implantable loop recorder [...] Sign Reading Time Taken Comments Blood Pressure 130/66 2025 12:56 PM CDT Pulse 62 2025 12:56 PM CDT Temperature - - Respiratory Rate - - Oxygen Saturation 96% 2025 12:56 PM CDT Inhaled Oxygen Concentration - - Weight 70 kg (154 lb 5.2 oz) 2025 12:56 PM CDT Height 147.3 cm (4' 10) 2025 12:56 PM CDT Body Mass Index 32.25 2025 12:56 PM CDT Plan of Treatment Health Maintenance Due Date [...] Visit 65+ 2003 Covid-19 Vaccine (5 - 2024-2 6 season) 2025 03/08/2022, 09/21/2021, 12/29/2020, Additional history exists Influenza Vaccine (#1) 2025 Lipid Panel 11/22/2025 11/22/2024 Procedures Procedure Name Priority Date/Time Associated Diagnosis Comments DEVICE CHECK - REMOTE Routine 07/19/2025 8:15 AM CDT Atrial fibrillation, unspecified type (HCC) DEVICE CHECK - REMOTE Routine 06/07/2025 11:14 AM CDT Atrial fibrillation, unspecified type (HCC) POCT LIPID PANEL Routine 11/22/2024 12:5 6 PM SCIENTIFIC ASSOCIATE Mixed hyperlipidemia from Last 3 Months or Most Recently Relevant to Health Maintenance Results * DEVICE CHECK - REMOTE (07/19/2025 8:15 AM CDT) Anatomical Region Laterality Modality Other Narrative 07/20/2025 8:25 AM CDT 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 Patient had a routine [facility] remote transmission of their implantable loop recorder on July 19, 2025. Medications: ASA 325 mg daily, Toprol XL 50 mg b.i.d. Interrogation of the patients device demonstrates that the Linq is functioning appropriately (0) Symptom events Auto Device detected events of, (0) Pause, (0) Bradycardia, (0) Tachy, (0) AT, (0) AF, Presenting Rhythm: Normal sinus rhythm at 62 bpm Battery: Good Plan: 1) Routine Remote with no new events. 2) Continue to monitor remotely. 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 Patient had a routine [facility] remote transmission of their implantable loop recorder on June 07, 2025. Medications: ASA 325 mg daily, Toprol XL 50 mg b.i.d. Interrogation of the patients device demonstrates that the Linq is functioning appropriately (0) Symptom events Auto Device detected events of, (0) Pause, (0) Bradycardia, (0) Tachy, (0) AT, (0) AF, Presenting Rhythm: Normal sinus rhythm at 60 bpm Battery: Good Plan: 1) Routine Remote with no new events. 2) Continue to monitor remotely. Ricky Bennett Device Trashman us Sam Dodge MD CV CARDIAC SERVICES PROC EDURES Final Result * (ABNORMAL) POCT lipid panel (11/22/2024 12:56 PM SCIENTIFIC ASSOCIATE) HDL, POC 50(A) > - 40 mg/dL Triglycerides, POC 76 < - 150 mg/dL LDL Cholesterol POC 47 < - 100 mg/dL Chol/HDL Ratio, POC 1.0 < - 5.0 Non-HDL Cholesterol, POC 63 < - 130 mg/dL Cholesterol Total, POC 112 < - 200 mg/dL Capillary blood 11/22/2024 1 2:56 PM SCIENTIFIC ASSOCIATE us Sam Dodge MD POINT OF CARE TEST ORDER IMELDA Final Result from Last 3 Months or Most Recently Relevant to Health Maintenance Insurance MEDICARE MEDICARE [employer] MEDICARE SUPPLEMENT Care Teams Employee Counselor Relationship Specialty Start Date End Date Kris Storey MD PCP - General Internal Medicine 03/20/22 Sam Dodge MD [address] [address] Fly Worker Cardiology 03/20/23
--- OUTSIDE RECORDS SUMMARY | 2025-09-01 13:07 | XMS_ITS | Encounter Summary ---
Author Organization [facility] Healthcare Address [address] [place] [address] Care Team Providers Care Blood Bank Technician Name Role Phone Kris Storey MD Primary Care Provider [phone] Sam Dodge MD Unavailable [phone] Encounter Details Date Type Department Care Team (Late st Contact Info) Description 08/30/2025 Telephone [facility] Cardiology [address] [facility] [address] [place] [address] Sam Dodge MD [address] [facility] [address] [place] [address] Social History Tobacco Use Types Packs/Day Years [...] file Not on file Not on file documented as of this encounter Miscellaneous Notes * Telephone Encounter - Tika Osorio MA - 08/30/2025 9:57 AM CDT Left voicemail message on her dtr's voicemail to call cs (# provided) to schedule the echo for her mother. Medicare is her primary insurance. Left my second voicemail message today 08/31/25. documented in this encounter Plan of Treatment Not on file documented as of this encounter Visit Diagnoses Not on filedocumented in this encounter Care Teams Blood Bank Technician Relationship Specialty Start Date End Date Kris Storey MD PCP - General Internal Medicine 03/20/22 Sam Dodge MD [address] [address] Operations Technician Cardiology 03/20/23 documented as of this encounter
--- OUTSIDE RECORDS SUMMARY | 2025-09-01 13:07 | XMS_ITS | Clinical Summary ---
Author Organization [facility] Address [address] [place] [address] Care Team Providers Care Department Traffic Freight Router Name Role Phone Kris Storey MD Primary Care Provider [phone] Home Skelton MD Unavailable Unava ilable Allergies [...] Date Diagnosed Date PFO (patent foramen ovale) 06/22/2021 Hypertension 06/22/2021 Acute embolic stroke 04/21/2021 Family History Medical History Relation Comments CHF Father CT Father Relation Status Comments Father Social History [...] Comments Blood Pressure 158/74 10/04/2021 3:08 PM MOUNTED POLICE Pulse 60 10/04/2021 3:08 PM MOUNTED POLICE Temperature 35.8 C (96.4 F) 07/02/2021 12:52 PM CDT Respiratory Rate 20 10/04/2021 3:08 PM MOUNTED POLICE Oxygen Saturation 97% 10/04/2021 3:08 PM MOUNTED POLICE Inhaled Oxygen Concentration - - Weight 69.4 kg (153 lb) 10/04/2021 3:08 PM MOUNTED POLICE Height 152.4 cm (5') 10/04/2021 3:08 PM MOUNTED POLICE Body Mass Index 29.88 10/04/2021 3:08 PM MOUNTED POLICE Plan of Treatment Health Maintenance Due Date Last Done Comments DTaP, Tdap and Td Vaccines ( 1 - Tdap) 1957 Zoster Vaccines (1 of 2) 1988 Annual Medicare Wellness Visit 2003 RSV Immunization or 60+ Years (1 - 1-dose 75+ series) 2013 Pneumococcal Vaccine: 50+ Years (2 of 2 - PCV20 or PCV21) 08/31/2020 08/31/2019 COVID-19 Vaccine (3 - 2024-2 6 season) 2025 12/29/2020, 12/01/2020 Influenza Adult (#1) 2025 Hepatitis A Vaccines Aged Out No long er eligible based on patient's age to complete this topic Meningococcal B Vaccine Aged Out No l onger eligible based on patient's age to complete this topic Meningococcal Vaccine Aged Out No daniel kena eligible based on patient's age to complete this topic RSV Immunizations Under 20 Months Aged Out No longer eligible b ased on patient's age to complete this topic Medical Devices Implanted Type Area Manhole Builder Device Identifier Shelf Expiration Date Model / Serial / Lot Medtronic Linq Ii Implantable Loop Recorder- 021 Implanted:07/02 by Home Skeltno MD (Quantity not on file) Implantable Loop Recorder [employer] 08/13/2022 [id number] / [id number] / Description:MRI Conditional under following conditions: Static magnetic field of 1.5 T or 3 T, Max spatial gradient field of 2500 Gauss/cm or less, Max slew rate 200 T/m/s , Max whole body DERIK of 4 W/kg or less, Head DERIK 3.2 W/kg or less , Do not place local transmit coils over chest, trunk , or shoulder region Insurance MEDICARE [facility] Advance Directives Documents on File Type Date Recorded Patient Quick Print Operator Expl anation Advance Directives and Living Will 09/11/2015 12:00 AM POWER OF KENO WRITER / RUNNER FO R HEALTH CARE Advance Directives and Living Will 09/11/2015 12:00 AM 06/25/2006 [facility] Advance Directives and Living Will 08/14/2015 12:00 AM POWER OF KENO WRITER / RUNNER FO R HEALTH CARE Advance Directives and Living Will 08/14/2015 12:00 AM POWER OF KENO WRITER / RUNNER FO R HEALTH CARE Advance Directives and Living Will 04/17/2015 SHORT FORM POWER OF KENO WRITER / RUNNER * Full Code (Latest Code Status on File) Date Activated Date Inactivated Comments 04/21/2021 10:11 PM 04/24/2021 6:18 PM Care Teams Department Traffic Freight Router Relationship Specialty Start Date End Date Kris Storey MD [address] [place] [address] PCP - General INTERNAL MEDICINE 04/21/21 Home Skelton MD [address] [place] [address] Consulting Physician CLINICAL CARDIAC ELECTROPHYSIOLOGY 06/21/21
[2025-09-01 13:10] LABS: Alanine Aminotransferase 23 U/L (6-35); Albumin Level 4.0 g/dL (3.5-5.1); Alkaline Phosphatase 120 U/L (38-126); Anion Gap 9 mmol/L (4-12); Aspartate Amino Transferase 32 U/L (14-36); Bilirubin,Total 0.7 mg/dL (0.2-1.3); Blood Urea Nitrogen 43 mg/dL (7-17); CRP < 0.5 mg/dL (<1.0); Calcium 8.9 mg/dL (8.4-10.2); Carbon Dioxide 28 mmol/L (22-30); Chloride 105 mmol/L (98-107); Creatine Kinase 70 U/L (30-135); Estimated Glomerular Filt Rate 31; Glucose 151 mg/dL (65-110); Osmolality Calculated 307 mOsm/kg (285-295); Potassium 5.3 mmol/L (3.4-5.0); Sodium 142 mmol/L (137-145); Total Protein 6.4 g/dL (6.3-8.2); Uric Acid 7.3 mg/dL (2.5-7.5)
[2025-09-02 10:49] LABS: Hemoglobin A1C 6.8 % (<5.7)
== END 2025-09-01 12:26 | disposition home or self-care (01) ==
LOC: CHSLAB 12:28
PROVIDERS: PCP Internal Medicine; Visit Provider Internal Medicine
DX: M79.605 Pain in left leg (principal); R73.02 Impaired glucose tolerance (oral); Z96.642 Presence of left artificial hip joint
CPT/HCPCS: 36415; 72100; 73502; 73562; 80053; 82550; 83036; 84550; 85025; 86140

== ENCOUNTER 2025-09-02 08:38 | Emergency (ER) | payer MEDICARE, SELFPAY ==
[2025-09-02] VITALS (16 sets, daily range): BP systolic 145–178; BP diastolic 57–85; PULSE 59–73; RESP 11–25; TEMP 36.6; O2SAT 92–100
--- NOTE | ~2025-09-02 | CT_ITS ---
EXAMINATION: CT brain dalila krishna, 09/02/2025 9:04 CDT HISTORY: Altered mental status COMPARISON: No comparisons available. Technique: Axial images obtained of the brain without contrast. One or more of the following dose reduction techniques were used: automated exposure control, adjustment of the mA and/or kV according to patient size, use of iterative reconstruction technique. Findings: There is a large remote right MCA infarct. There are remote bilateral basal ganglia lacunar infarcts. There are remote bilateral cerebellar infarcts. No acute infarct or hemorrhage. No midline shift or mass effect. No extra-axial fluid collections. Mastoid air cells unremarkable. Sinuses and orbits unremarkable. No acute fracture. No significant facial or scalp soft tissue swelling evident. No radiopaque foreign body is seen. Impression: 1.No acute intracranial abnormality. Reviewed, dictated and finalized at location P. Impression: 1.No acute intracranial abnormality.
--- NOTE | 2025-09-02 08:43 | ED.AMS ---
HPI - Altered Mental Status General Chief Complaint: Altered Mental Status Stated Complaint: aletered mental status Source: patient and family Mode of arrival: ambulatory Limitations: no limitations History of Present Illness HPI narrative: 85-year-old female with a history of anxiety, diabetes mellitus, dyslipidemia, CKD, osteoarthritis status post C-spine fusion, status post right hip replacement, hypertension, CVA, Hole in the heart( unsure if this is ASD versus VSD) presents to the ED with -- altered mental status. the patient's son feels that she is is altered and confused. He felt that she is having delusions/hallucinations. she left her front door open. She thought that there with 2 small girls playing in the house when there were none. she called her son early this morning. Patient's speech is clear. No focal neuro deficits. -- Left knee pain MD complaint: altered mental status and confusion Onset (ago): hour(s) ( Altered mental status started this morning.) Timing confirmed by: family member Consistency of symptoms: constant Associated symptoms: denies other symptoms Treatments prior to arrival: glucose ( blood sugars 168) Related Data Home Medications ?Medication ?Instructions ?Recorded ?Confirmed ?Last Taken ?Type aspirin 325 mg tablet 325 mg PO DAILY 04/24/21 04/21/24 04/24/21 09:00 History calcium 600 mg (as 1 tablet PO DAILY 04/24/21 04/21/24 Unknown History carbonate)-vitamin D3 5 mcg (200 unit) tablet melatonin 5 mg tablet 10 mg PO HS 04/24/21 04/21/24 04/24/21 01:35 History okepvqcz-wzy-lbxxm acid 0.4 1 tablet PO DAILY 04/24/21 04/21/24 04/24/21 09:00 History mg-lycopene 300 mcg-lutein 250 mcg tablet (Centrum Silver) sennosides 8.6 mg-docusate sodium 1 tab-cap PO BID 04/24/21 04/21/24 Unknown History 50 mg tablet (Senna with Docusate Sodium) cranberry fruit concentrate 250 mg 500 mg PO DAILY 01/29/22 04/21/24 Unknown History chewable tablet (Azo Cranberry) potassium chloride 20 mEq 20 meq PO DAILY 01/29/22 04/21/24 Unknown History tablet,extended release(part/cryst) duloxetine 30 mg capsule,delayed 30 mg PO BID 03/25/22 04/21/24 Unknown History release meloxicam 7.5 mg tablet 7.5 mg PO DAILY 06/18/23 04/21/24 Unknown History metformin 500 mg tablet 500 mg PO DAILY 06/18/23 04/21/24 Unknown History tizanidine 2 mg capsule 2 mg PO TID PRN 06/18/23 04/21/24 Unknown History gabapentin 100 mg capsule 300 mg PO BID 01/12/25 Unknown History Allergies Allergy/AdvReac Type Severity Reaction Status Date / Time Sulfa (Sulfonamide Allergy Intermediate HALLUCINATI Verified 01/12/25 13:49 Antibiotics) ONS midazolam Allergy Unknown unknown Verified 01/12/25 13:49 Review of Systems Review of Systems: All systems reviewed & are unremarkable except as noted in HPI and below Constitutional: Constitutional: Reports as per HPI and Reports no additional constitutional complaints Eyes: Eyes: Reports as per HPI and Reports no additional eye complaints ENT: Reports system reviewed and no additional complaints, except as documented and Reports as per HPI Cardiovascular: Cardiovascular: Reports as per HPI and Reports no additional cardiovascular complaints Respiratory: Respiratory: Reports as per HPI and Reports no additional respiratory complaints Gastrointestinal: Gastrointestinal: Reports as per HPI and Reports no additional gastrointestinal complaints Genitourinary: Genitourinary: Reports no additional female genitourinary complaints and Reports as per HPI Musculoskeletal: Comments: left knee pain with decreased range of motion. The patient is currently getting intra-articular injections. Integumentary/Breasts: Skin/Breast: Reports system reviewed and no additional complaints, except as docu and Reports as per HPI Neurologic: Reports system reviewed and no additional complaints, except as documented and Reports as per HPI Psychiatric: Psychiatric: Reports no additional psychiatric complaints and Reports as per HPI Comments: Confusion hallucinations /delusions Endocrine: Endocrine: Reports no additional endocrine complaints and Reports as per HPI Hematologic/Lymphatic: Hematologic/Lymphatic: Reports no additional hematologic/lymphatic complaints and Reports as per HPI Allergic/Immunologic: Allergic/Immunologic: Reports no additional allergic/immunologic complaints and Reports as per HPI PMFSH Past Medical History Medical History Back pain Neck pain Osteoarthritis of cervical and lumbar spine Osteoarthritis Hypertension Hyperlipidemia Anxiety Surgical History Surgical History History of fusion of cervical spine H/O cataract extraction History of total right knee replacement History of left hip replacement History of total right hip replacement Family History Family History Father Family history of cardiovascular disease Hypertension Social History Social History Social History: patient lives independently in a 1 level duplex with 1 step to enter with a handrail. Prior to admit patient used a single-point cane was able to cook clean and drive. 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 Patient's required caregiver services prior to his and this caregiver may assist her when she returns home. Smoking status: Never smoker Second hand tobacco smoke exposure: Yes Alcohol intake: current Drinks per week: 3 Substance use: never Substance use type: does not use Lack of Transportation: No Lack of Food: Never True Current Housing: I Have Housing Concerned About Future Housing: No Difficulty Paying Gas/Electric Bills: No Difficulty Paying for Meds: No Currently Unemployed: No Education: Grade School Difficulty w/ Childcare or Family Care: No Gender identity (if verbalized by the patient): Female Spiritual care concerns: No Exam Narrative: afebrile. Oxygen saturation of 100% on room air. Blood pressure 173/57. Const: General: healthy appearing and no acute distress Nutritional Appearance: well nourished Orientation/consciousness: patient oriented x3 Limitations: no limitations Other: the patient is alert and oriented. HENMT: Head: normal to inspection Ears: external ears normal Face/Nose/Sinus: Normal external nose present Face and sinus: normal facial exam Mouth: Yes Normal oral and palatal mucosa present Throat: posterior oropharynx normal Eyes: Conjunctivae: conjunctivae normal Pupils: Equal, round and reactive pupils present EOM: EOMs intact bilaterally Direct Ophthalmoscopy: no photophobia Neck: Neck: normal visual inspection, no lymphadenopathy and no meningeal signs Chest: Chest palpation & inspection: normal inspection of the chest Resp: Effort & Inspection: normal respiratory effort Other: Right basilar rales. Cardio: Rate: regular rate Rhythm: regular rhythm GI: GI Palp: Yes Soft to palpation Auscultation: normal bowel sounds Other: No tenderness/rigidity / rebound. : General: Yes no CVA tenderness Back/Spine/Pelvis: Back: no CVA tenderness Skin: General skin exam: normal color Rashes: no rashes Wounds: no wounds Neuro: General: patient oriented x3, moves all extremities, no meningeal signs, no focal motor deficits and CN's II-XI intact bilaterally Cranial nerves: Yes Nystagmus not present Speech: normal speech Other: no motor or sensory deficit noted. Speech is clear. Extrem: General: normal to inspection and edema Other: Left knee swelling with decreased range of motion Psych: Mental Status: mental status grossly normal Affect: normal affect Attitude: cooperative Course Course Emergency Course: Altered mental status-- patient was confused. No focal neuro deficits. CT of the head did not show any acute findings. Altered mental status appears to be secondary to urinary tract infection urinary tract infection-- will treat with Augmentin left knee pain-- x-ray did not show any acute findings. CKD with a BUN/creatinine of 44/1.55. Anemia with an H&H of 10.4/33.1 Vital Signs Vital signs: Vital Signs Temperature 36.6 C 09/02/25 08:38 Pulse Rate 66 09/02/25 08:38 Respiratory Rate 20 09/02/25 08:38 Blood Pressure 173/57 H 09/02/25 08:38 Pulse Oximetry 100 09/02/25 08:38 Oxygen Delivery Room Air 09/02/25 08:38 Temperature 36.6 C 09/02/25 08:38 Pulse Rate 62 09/02/25 09:10 Respiratory Rate 20 09/02/25 09:03 Blood Pressure 178/59 H 09/02/25 09:03 Pulse Oximetry 92 09/02/25 09:03 Oxygen Delivery Room Air 09/02/25 09:14 MDM - Altered Mental Status MDM Narrative Medical decision making narrative: altered mental status CKD urinary tract infection Differential Diagnosis Differential diagnosis: Likely delirium and hypoglycemia Medical Records Attestation: I reviewed the patient's medical records. Lab Data Attestation: I reviewed the patient's lab results. 09/02/25 09:12 09/02/25 09:12 Labs: Lab Results 09/02/25 09/02/25 09/02/25 Range/Units 08:53 09:12 09:25 WBC 9.3 (4.8-10.8) K/mm3 RBC 3.54 L (4.20-5.40) M/mm3 Hgb 10.4 L (11.7-13.8) g/dL Hct 33.1 L (35.0-42.0) % MCV 93.5 (78.0-102.0) fL MCH 29.4 (27.0-31.0) pg MCHC 31.4 L (32-36) g/dL RDW 14.2 (11.6-14.4) % Plt Count 186 (150-420) K/mm3 MPV 9.6 (9.2-11.8) fl Immature Gran % (Auto) Not Reportable Neut % (Auto) Not Reportable Lymph % (Auto) Not Reportable [place] % (Auto) Not Reportable Eos % (Auto) Not Reportable Baso % (Auto) Not Reportable Lymph # (Auto) Not Reportable [place] # (Auto) Not Reportable Eos # (Auto) Not Reportable Baso # (Auto) Not Reportable Abs Immat Gran (auto) Not Reportable Absolute Neuts (auto) Not Reportable Absolute Nucleated RBC Not Reportable Total Counted 100 Neutrophils % (Manual) 61 (46-73) % Band Neutrophils % 0 (0-6) % Lymphocytes % (Manual) 27 (18-44) % Monocytes % (Manual) 8 (3-9) % Eosinophils % (Manual) 3 (1-6) % Basophils % (Manual) 1 (0-1) % Nucleated RBC % Not Reportable Abs Neuts (Manual) 5.67 (1.3-6.7) K/mm3 Abs Lymphs (Manual) 2.51 (1.1-4.5) K/mm3 Abs Monocytes (Manual) 0.74 (0.1-0.90) K/mm3 Absolute Eos (Manual) 0.27 (0.02-0.50) K/mm3 Abs Basophils (Manual) 0.09 (0-0.1) K/mm3 Platelet Estimate Adequate (Adequate) Schistocytes Not Reportable Sodium 140 (137-145) mmol/L Potassium 4.9 (3.4-5.0) mmol/L Chloride 106 (98-107) mmol/L Carbon Dioxide 26 (22-30) mmol/L Anion Gap 8 (4-12) mmol/L BUN 44 H (7-17) mg/dL Creatinine 1.55 H (0.7-1.0) mg/dL Estim Creat Clear Calc Not Reportable Estimated GFR 32 L (59 - ) Glucose 163 H (65-110) mg/dL POC Capillary Glucose 168 H (65-105) mg/dl Calculated Osmolality 305 H (285-295) mOsm/kg Lactic Acid 1.5 (0.4-2.0) mmol/L Calcium 8.7 (8.4-10.2) mg/dL Magnesium 2.5 H (1.6-2.3) mg/dL Total Bilirubin 0.7 (0.2-1.3) mg/dL AST 35 (14-36) U/L ALT 26 (6-35) U/L Alkaline Phosphatase 128 H (38-126) U/L Ammonia < 9 L (9-30) umol/L Troponin I < 0.012 (0.000-0.034) ng/mL Total Protein 6.7 (6.3-8.2) g/dL Albumin 4.1 (3.5-5.1) g/dL Lipase 90 (23-300) U/L TSH 6.280 H (0.465-4.680) uIU/mL Urine Color Light yellow (Yellow) Urine Appearance Clear (Clear) Urine pH 6.0 (5.0-8.0) Ur Specific [place] 1.015 (1.010-1.020) Urine Protein Negative (Negative) Urine Glucose (UA) Negative (Negative) Urine Ketones Negative (Negative) Ur Blood (Man) 1+ H (Negative) Urine Nitrate Positive H (Negative) Urine Bilirubin Negative (Negative) Urine Urobilinogen 0.2 (0.2-1.0) mg/dL Leukocyte Esterase Rfl 1+ H (Negative) NORBERT/UL Urine RBC None seen (0-2) /hpf Urine WBC 16-20 H (0-3) /hpf Ur Squamous Epith Cells Rare (Few) /hpf Urine Bacteria 4+ H (None) /hpf ECG Data EKG #1: ECG completion date: 09/02/25 ECG completion time: 09:09 Interpretation: normal sinus rhythm. Normal axis. Right bundle-branch block pattern. No ST elevation. Discharge Plan Discharge Clinical Impression: Altered mental status Qualifiers: Altered mental status type: disorientation Qualified Code(s): R41.0 - Disorientation, unspecified Urinary tract infection Qualifiers: Urinary tract infection type: site unspecified Hematuria presence: without hematuria Qualified Code(s): N39.0 - Urinary tract infection, site not specified CKD (chronic kidney disease) stage 3, GFR 30-59 ml/min Qualifiers: Chronic kidney disease stage 3 subtype: stage 3b (GFR 30-44) Qualified Code(s): N18.32 - Chronic kidney disease, stage 3b Patient Disposition: Home Condition: Stable Instructions: Antibiotic Form, Urinary Tract Infection in Women (DC), Chronic Kidney Disease (ED), Altered Mental Status (ED) Patient Language: Hong Konger Prescriptions: New amoxicillin-pot clavulanate 875-125 mg tablet 1 tablet PO Q12H Qty: 10 0RF No Action potassium chloride 20 mEq tablet,ER particles/crystals 20 meq PO DAILY Azo Cranberry 250 mg Tablet,Chewable 500 mg PO DAILY duloxetine 30 mg capsule,delayed release(DR/EC) 30 mg PO BID metformin 500 mg tablet 500 mg PO DAILY meloxicam 7.5 mg tablet 7.5 mg PO DAILY tizanidine 2 mg capsule 2 mg PO TID PRN gabapentin 100 mg capsule 300 mg PO BID sennosides-docusate sodium [Senna with Docusate Sodium] 8.6-50 mg Tablet 1 tab-cap PO BID calcium carbonate-vitamin D3 600 mg(1,500mg) -200 unit Tablet 1 tablet PO DAILY Centrum Silver 0.4-300-250 mg-mcg-mcg Tablet 1 tablet PO DAILY melatonin 5 mg Tablet 10 mg PO HS aspirin 325 mg Tablet 325 mg PO DAILY atorvastatin 40 mg Tablet 40 mg PO HS Qty: 30 0RF hydrochlorothiazide 25 mg Tablet 25 mg PO DAILY Qty: 30 0RF metoprolol succinate 50 mg tablet extended release 24 hr 50 mg PO BID Qty: 60 0RF Rx Instructions: please schedule at 0900 and 2100 mupirocin 2 % ointment 1 applic topical .COMPLEX Qty: 22 0RF Rx Instructions: 3-4x per day for two weeks then 1-2 times per day Follow-up/Referrals: Kris Storey MD [Primary Care Provider, Internal Medicine] Time of Disposition: 10:29
--- NOTE | 2025-09-02 09:02 | ECG_ITS ---
Test Date: 2025-09-02 09:07:32 Measurements Intervals [place] Rate: 63 P: 26 DC: 187 QRS: -10 QRSD: 144 T: 30 QT: 465 QTc: 476 Interpretive Statements SINUS RHYTHM RIGHT BUNDLE BRANCH BLOCK BASELINE ARTIFACT- I, II, III, AVR, AVF, V4-V6 ABNORMAL ECG No previous ECG available for comparison Electronically Signed On 09-02-2025 09:37:50 CDT by Kel Gonzalez D.O.
[2025-09-02 09:19] LABS: Hematocrit 33.1 % (35.0-42.0); Hemoglobin 10.4 g/dL (11.7-13.8); Mean Corpuscular HGB Conc 31.4 g/dL (32-36); Mean Corpuscular Hemoglobin 29.4 pg (27.0-31.0); Mean Corpuscular Volume 93.5 fL (78.0-102.0); Platelet Count Result 186 K/mm3 (150-420); Red Blood Count 3.54 M/mm3 (4.20-5.40); White Blood Count 9.3 K/mm3 (4.8-10.8)
[2025-09-02 09:29] LABS: Add Urine Microscopic? YES; Appearance Urine Clear (Clear); Glucose Urine UA Negative (Negative); Leukocyte Esterase Ur 1+ LEU/UL (Negative); Nitrate Urine Positive (Negative); Specific Grav Ur 1.015 (1.010-1.020)
[2025-09-02 09:30] LABS: Ammonia < 9 umol/L (9-30)
[2025-09-02 09:32] LABS: Band Neutrophils Percent 0 % (0-6); Eosinophils Absolute Manual 0.27 K/mm3 (0.02-0.50); Eosinophils Percent Manual 3 % (1-6); Lymphocytes Absolute Manual 2.51 K/mm3 (1.1-4.5); Lymphocytes Percent Manual 27 % (18-44); Monocytes Absolute Manual 0.74 K/mm3 (0.1-0.90); Monocytes Percent Manual 8 % (3-9); Neutrophils Absolute Manual 5.67 K/mm3 (1.3-6.7); Neutrophils Percent Manual 61 % (46-73); Total Cells Counted 100
[2025-09-02 09:33] LABS: Basophils Absolute Manual 0.09 K/mm3 (0-0.1); Basophils Percent Manual 1 % (0-1)
[2025-09-02 09:34] LABS: Anion Gap 8 mmol/L (4-12); Blood Urea Nitrogen 44 mg/dL (7-17); Carbon Dioxide 26 mmol/L (22-30); Chloride 106 mmol/L (98-107); Estimated Glomerular Filt Rate 32; Potassium 4.9 mmol/L (3.4-5.0); Sodium 140 mmol/L (137-145)
[2025-09-02 09:35] LABS: Alanine Aminotransferase 26 U/L (6-35); Albumin Level 4.1 g/dL (3.5-5.1); Alkaline Phosphatase 128 U/L (38-126); Aspartate Amino Transferase 35 U/L (14-36); Bilirubin,Total 0.7 mg/dL (0.2-1.3); Calcium 8.7 mg/dL (8.4-10.2); Glucose 163 mg/dL (65-110); Lipase 90 U/L (23-300); Magnesium 2.5 mg/dL (1.6-2.3); Osmolality Calculated 305 mOsm/kg (285-295); Total Protein 6.7 g/dL (6.3-8.2)
--- OUTSIDE RECORDS SUMMARY | 2025-09-02 09:36 | XMS_ITS | Encounter Summary ---
Author Organization [facility] Healthcare Address [address] [place] [address] Care Team Providers Care Director Of Family Service Center Name Role Phone Kris Storey MD Primary Care Provider [phone] Sam Dodge MD Unavailable [phone] Encounter Details Date Type Department Care Team (Late st Contact Info) Description 08/30/2025 Telephone [facility] Medical Group Cardiology [address] [facility] [address] [place] [address] Sam Dodge MD [address] [facility] [address] [place] [address] Social History Tobacco Use Types [...] Left my second voicemail message today 08/31/25. Mailed letter to patient 09/01/25. documented in this encounter Plan of Treatment Not on file documented as of this encounter Visit Diagnoses Not on filedocumented in this encounter Care Teams Director Of Family Service Center Relationship Specialty Start Date End Date Kris Storey MD PCP - General Internal Medicine 03/20/22 Sam Dodge MD [address] [address] Well Surveying Engineer Cardiology 03/20/23 documented as of this encounter
--- OUTSIDE RECORDS SUMMARY | 2025-09-02 09:36 | XMS_ITS | Clinical Summary ---
Author Organization [facility] Address [address] [place] [address] Care Team Providers Care Hand Binder Cutter Name Role Phone Kris Storey MD Primary Care Provider [phone] Sam Dodge MD Unavailable [phone] Allergies Active Allergy Reactions Criticality Noted Date [...] Description 08/30/2025 9:15 AM CDT Ancillary Procedure [facility] Cardiology [address] [place] [id number] Status post placement of implantable loop recorder (Primary Dx); Atrial fibrillation, unspecified type (HCC) 08/30/2025 Telephone [facility] Cardiology [address] [place] [address] Sam Dodge MD 2025 1:00 PM CDT Office Visit [facility] Cardiology [address] [place] [phone] Sam Dodge MD Primary hypertension (Primary Dx); Mixed hyperlipidemia; Patent foramen ovale 07/19/2025 11:30 AM CDT Ancillary Procedure [facility] Cardiology [address] [facility] [address] [place] [address] Status post placement of implantable loop recorder (Primary Dx); Atrial fibrillation, unspecified type (HCC) 06/07/2025 8:30 AM CDT Ancillary Procedure [facility] Cardiology [address] [facility] [address] [place] [address] Status post placement of implantable loop recorder [...] Diagnosis Comments DEVICE CHECK - REMOTE Routine 08/30/2025 10:32 AM CDT Atrial fibrillation, unspecified type (HCC) DEVICE CHECK - REMOTE Routine 07/19/2025 8:15 AM CDT Atrial fibrillation, unspecified type (HCC) DEVICE CHECK - REMOTE Routine 06/07/2025 11:14 AM CDT Atrial fibrillation, unspecified type (HCC) POCT LIPID PANEL Routine 11/22/2024 12:5 6 PM MEDIA COORDINATOR Mixed hyperlipidemia from Last 3 Months or Most Recently Relevant to Health Maintenance Results * DEVICE CHECK - REMOTE (08/30/2025 10:32 AM CDT) Anatomical Region Laterality Modality Other Narrative 09/01/2025 4:56 PM CDT 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 Patient had a routine [facility] remote transmission of their implantable loop recorder on August 30, 2025. Medications: ASA 325 mg daily, Toprol [...] Continue to monitor remotely. Ricky Bennett Device Vice President Of Business Development Sam Dodge MD [facility] PROC EDURES Final Result * DEVICE CHECK - REMOTE (07/19/2025 8:15 [...] Continue to monitor remotely. Ricky Bennett Device Vice President Of Business Development Sam oDdge MD CV CARDIAC SERVICES PROC EDURES Final [...] events. 2) Continue to monitor remotely. Ricky Loveamy Device Vice President Of Business Development us Sam Dodge MD CV CARDIAC SERVICES PROC EDURES Final Result * (ABNORMAL) POCT lipid panel (11/22/2024 12:56 PM MEDIA COORDINATOR) HDL, POC 50(A) > - 40 mg/dL Triglycerides, POC 76 < - 150 mg/dL LDL Cholesterol POC 47 < - 100 mg/dL Chol/HDL Ratio, POC 1.0 < - 5.0 Non-HDL Cholesterol, POC 63 < - 130 mg/dL Cholesterol Total, POC 112 < - 200 mg/dL Capillary blood 11/22/2024 1 2:56 PM MEDIA COORDINATOR us Sam Dodge MD POINT OF CARE TEST ORDER IMELDA Final Result from Last 3 Months or Most Recently Relevant to Health Maintenance Insurance MEDICARE MEDICARE [facility] MEDICARE SUPPLEMENT Member Subscriber Plan / Payer (Ef fective 2020-Present) Name:Ry Nesbitt Relation to Subscriber:Self Name:Ry Nesbitt Payer ID:[id number] Group ID:[id number] Type:COMMERCIAL Address: [facility] [id number] [place] [id number] Care Teams Hand Binder Cutter Relationship Specialty Start Date End Date Kris Storey MD PCP - General Internal Medicine 03/20/22 Sam Dodge MD [address] [address] Form Builder Helper Cardiology 03/20/23
--- OUTSIDE RECORDS SUMMARY | 2025-09-02 09:36 | XMS_ITS | Clinical Summary ---
Author Organization [facility] Address [address] [place] [address] Care Team Providers Care Market Reporter Name Role Phone Kris Storey MD Primary Care Provider [phone] Home Skelton MD Unavailable Unava ilable Allergies [...] History Medical History Relation Comments CHF Father IA Father Relation Status Comments Father Social History [...] Comments Blood Pressure 158/74 10/04/2021 3:08 PM COOKING APPLIANCE REPAIR TECHNICIAN Pulse 60 10/04/2021 3:08 PM COOKING APPLIANCE REPAIR TECHNICIAN Temperature 35.8 C (96.4 F) 07/02/2021 12:52 PM CDT Respiratory Rate 20 10/04/2021 3:08 PM COOKING APPLIANCE REPAIR TECHNICIAN Oxygen Saturation 97% 10/04/2021 3:08 PM COOKING APPLIANCE REPAIR TECHNICIAN Inhaled Oxygen Concentration - - Weight 69.4 kg (153 lb) 10/04/2021 3:08 PM COOKING APPLIANCE REPAIR TECHNICIAN Height 152.4 cm (5') 10/04/2021 3:08 PM COOKING APPLIANCE REPAIR TECHNICIAN Body Mass Index 29.88 10/04/2021 3:08 PM COOKING APPLIANCE REPAIR TECHNICIAN Plan of Treatment Health Maintenance Due Date [...] this topic Medical Devices Implanted Type Area Cancer Registry Coordinator Device Identifier Shelf Expiration Date Model / Serial / Lot Medtronic Linq Ii Implantable Loop Recorder- [id number] Implanted:07/02 by Home Skelton MD (Quantity not on file) Implantable Loop Recorder [id number] 08/13/2022 [id number] / [id number] / Description:MRI Conditional under following conditions: Static magnetic field of 1.5 T or 3 T, Max spatial gradient field of 2500 Gauss/cm or less, Max slew rate 200 T/m/s , Max whole body DERIK of 4 W/kg or less, Head DERIK 3.2 W/kg or less , Do not place local transmit coils over chest, trunk , or shoulder region Insurance MEDICARE [facility] Advance Directives Documents on File Type Date Recorded Patient Seafood Team Member Expl anation Advance Directives and Living Will 09/11/2015 12:00 AM [facility] [employer] [facility] [employer] Advance Directives and Living Will 09/11/2015 12:00 AM 06/25/2006 [facility] Advance Directives and Living Will 08/14/2015 12:00 AM [employer] [facility] Advance Directives and Living Will 08/14/2015 12:00 AM [facility] [facility] Advance Directives and Living Will 04/17/2015 SHORT FORM POWER OF [employer] * Full Code (Latest Code Status on File) Date Activated Date Inactivated Comments 04/21/2021 10:11 PM 04/24/2021 6:18 PM Care Teams Market Reporter Relationship Specialty Start Date End Date Kris Storey MD [address] [place] [address] PCP - General INTERNAL MEDICINE 04/21/21 Home Skelton MD [address] [place] [address] Consulting Physician CLINICAL CARDIAC ELECTROPHYSIOLOGY 06/21/21
[2025-09-02 09:44] LABS: Troponin I < 0.012 ng/mL (0.000-0.034)
[2025-09-02 10:01] LABS: Thyroid Stimulating Hormone 6.280 uIU/mL (0.465-4.680)
[2025-09-02] MEDS: traMADol HCL (*CRX) 50 MG TABLET PO (10:36)
--- NOTE | 2025-09-04 20:19 | PC.NURSE ---
Prelim UA cx report: Gram negative bacilli isolated
--- NOTE | 2025-09-05 14:39 | PC.NURSE ---
FINAL URINE CULTURE REPORT; ESCHERICHIA COLI; PATIENT DISCHARGED ON AUGMENTIN, CULTURE SUSCEPTIBLE. NO FURTHER ACTION OR TREATMENT NEEDED PER ERP DR. FLOWER.
== END 2025-09-02 10:46 | disposition home or self-care (01) ==
PROVIDERS: Emergency Provider Internal Medicine Critical Care Medicine; PCP Internal Medicine
DX: R41.0 Disorientation, unspecified (principal); N39.0 Urinary tract infection, site not specified; E78.5 Hyperlipidemia, unspecified; I12.9 Hypertensive chronic kidney disease with stage 1 through stage 4 chronic kidney disease, or unspecified chronic kidney disease; E11.22 Type 2 diabetes mellitus with diabetic chronic kidney disease; N18.32 Chronic kidney disease, stage 3b; Z86.73 Personal history of transient ischemic attack (TIA), and cerebral infarction without residual deficits
CPT/HCPCS: 36415; 70450; 80053; 81001; 82140; 82948; 83605; 83690; 83735; 84443; 84484; 85025; 87077; 87086; 87186; 93005; 99284; A9270

== ENCOUNTER 2025-10-18 13:28 | Outpatient (CLI) | payer MEDICARE, SELFPAY ==
--- NOTE | 2025-10-18 13:37 | ECHO_ITS ---
Patient Info Name: Ry Nesbitt Age: 85 years : 1940 Gender: Female Ht: 58 in Wt: 125 lbs BSA: 1.54 m2 HR: 67 bpm BP: 106 / 79 mmHg Technical Quality: Good Exam Date: 10/18/2025 1:38 PM Patient Status: O Admit Date: 10/18/2025 Exam Type: CA echo doppler color flow Complete two-dimensional, color flow and Doppler transthoracic echocardiogram is performed. Staff Referring Physician: Kris Storey MD Boiler Control Room Operator: Miguelangel Carpio III Ordering Physician: Kris Storey MD Summary 1. Complete two-dimensional, color flow and Doppler transthoracic echocardiogram is performed. 2. Left ventricular chamber dimension is normal. 3. Left ventricular systolic function is normal, estimated at 60-65. 4. There is mild concentric increased left ventricular wall thickness. 5. The left ventricular diastolic function is grade I diastolic dysfunction. 6. E/e' 17 is elevated. 7. Left atrial chamber dimension is mildly enlarged. 8. The aortic valve is not well visualized. 9. There is moderate aortic valve sclerosis. 10. There is moderate aortic valve stenosis based on a peak velocity of 212 cm/s, mean gradient of 10 mmHg, and aortic valve area of 1.3 cm2. 11. The mitral valve has a moderately calcified annulus. 12. There is mild to moderate mitral valve regurgitation. 13. There is mild tricuspid valve regurgitation. Left Ventricle Left ventricular chamber dimension is normal. Left ventricular systolic function is normal, estimated at 60-65. There is mild concentric increased left ventricular wall thickness. The left ventricular diastolic function is grade I diastolic dysfunction. E/e' 17 is elevated. Right Ventricle Right ventricular chamber dimension is normal. Right ventricular systolic function is normal and with normal TAPSE 1.9 cm. Left Atria Left atrial chamber dimension is mildly enlarged. Right Atria Right atrial chamber dimension is normal. Aortic Valve The aortic valve is not well visualized. There is moderate aortic valve sclerosis. There is moderate aortic valve stenosis based on a peak velocity of 212 cm/s, mean gradient of 10 mmHg, and aortic valve area of 1.3 cm2. There is no aortic valve regurgitation. Pulmonic Valve There is no pulmonic regurgitation. Mitral Valve The mitral valve has a moderately calcified annulus. There is no mitral valve stenosis. There is mild to moderate mitral valve regurgitation. Tricuspid Valve There is mild tricuspid valve regurgitation. RVSP is not measured due to an inadequate TR jet. Pericardium/Pleural There is no pericardial effusion. Inferior Vena Cava Normal inferior vena cava with >50% collapse upon inspiration consistent with normal right atrial pressure, 5 mmHg. Aorta The aortic root size at the sinus of Valsalva is normal. Left Ventricular Outflow Tract Name Value Normal LVOT 2D LVOT Diameter 2.1 cm LVOT Doppler LVOT Peak Velocity 82 cm/s LVOT Peak Gradient 3 mmHg LVOT Mean Gradient 1 mmHg LVOT VTI 21 cm LVOT VTI/AV VTI Ratio 0.4 LVOT Stroke Volume 68 ml LVOT CO 4.4 l/min LVOT CI 2.8 l/min/m2 Pulmonic Valve Name Value Normal PV Doppler PV Peak Velocity 198 cm/s PV Peak Gradient 16 mmHg PV Mean Gradient 9 mmHg Mitral Valve Name Value Normal MV Doppler MV Peak Gradient 5 mmHg MV Mean Gradient 2 mmHg MV Area (Cont Eq VTI) 2.7 cm2 MV Diastolic Function MV E Peak Velocity 72 cm/s MV A Peak Velocity 126 cm/s MV E/A 0.6 MV Decel Time (PW) 245 ms MV Annular TDI MV E/e' (Septal) 23.9 MV E/e' (Lateral) 12.3 MV E/e' (Average) 18.1 Tricuspid Valve Name Value Normal Estimated PAP/RSVP RA Pressure 5 mmHg <=5 TV Annular TDI TV Lateral Ashley s' Velocity 10.7 cm/s >=9.5 Aortic Valve Name Value Normal AV Doppler AV Peak Velocity 212 cm/s AV Peak Gradient 13 mmHg AV Mean Gradient 10 mmHg AV VTI 54 cm AV Area (Cont Eq VTI) 1.3 cm2 >=3.0 AV Area (Cont Eq Benjy) 1.3 cm2 AV DI (Benjy) 0.39 AV Regurgitation 2D LVOT Area 3.3 cm2 Ventricles Name Value Normal LV Dimensions 2D/MM IVS Diastolic Thickness (2D) 1.3 cm 0.6-1.0 LVID Diastole (2D) 4.0 cm 3.8-5.2 LVIW Diastolic Thickness (2D) 1.0 cm 0.6-0.9 LVID Systole (2D) 2.7 cm 2.2-3.5 LVOT Diameter 2.1 cm LV Mass (2D Cubed) 160.55 g 67.00-162.00 LV Mass Index (2D Cubed) 104 g/m2 43-95 Relative Wall Thickness (2D) 0.52 <=0.42 LV Fractional Shortening/Ejection Fraction 2D/MM LV Fractional Shortening (2D) 33 % 27-45 LV EF (2D Teichholz) 62 % LV Diastolic Volume (4C MOD) 70 ml LV EF (4C MOD) 61 % LV Diastolic Volume (2C MOD) 42 ml LV EF (2C MOD) 59 % LV Diastolic Volume (BP MOD) 54 ml 46-106 LV Diastolic Volume Index (BP MOD) 35 ml/m2 29-61 LV Systolic Volume (BP MOD) 22 ml 14-42 LV Systolic Volume Index (BP MOD) 14 ml/m2 8-24 LV EF (BP MOD) 59 % 54-74 LV Diastolic Length (4C) 7.5 cm LV Systolic Length (4C) 5.8 cm LV Stroke Volume (4C MOD) 42 ml Atria Name Value Normal LA Dimensions LA Volume (4C A-L) 58 ml LA Volume (BP A-L) 54 ml RA Dimensions RA Systolic Major Putnam Length (4C) 5.4 cm 2.2-2.8 RA Area (4C) 14.1 cm2 <=18.0 Report Signatures
--- OUTSIDE RECORDS SUMMARY | 2025-10-18 15:39 | XMS_ITS | Clinical Summary ---
Author Organization [facility] Address [address] [place] [address] Care Team Providers Care Night Time Babysitter Name Role Phone Kris Storey MD Primary Care Provider [phone] Home Skelton MD Unavailable Unava ilable Allergies [...] History Medical History Relation Comments CHF Father NC Father Relation Status Comments Father Social History [...] Comments Blood Pressure 158/74 10/04/2021 3:08 PM LINER ROLL CHANGER Pulse 60 10/04/2021 3:08 PM LINER ROLL CHANGER Temperature 35.8 C (96.4 F) 07/02/2021 12:52 PM CDT Respiratory Rate 20 10/04/2021 3:08 PM LINER ROLL CHANGER Oxygen Saturation 97% 10/04/2021 3:08 PM LINER ROLL CHANGER Inhaled Oxygen Concentration - - Weight 69.4 kg (153 lb) 10/04/2021 3:08 PM LINER ROLL CHANGER Height 152.4 cm (5') 10/04/2021 3:08 PM LINER ROLL CHANGER Body Mass Index 29.88 10/04/2021 3:08 PM LINER ROLL CHANGER Plan of Treatment Health Maintenance Due Date [...] this topic Medical Devices Implanted Type Area Wellness Trainer Device Identifier Shelf Expiration Date Model / Serial / Lot Medtronic Linq Ii Implantable Loop Recorder- [id number] Implanted:07/02 by Home Skelton MD (Quantity not on file) Implantable Loop Recorder [employer] 08/13/2022 [id number] / [id number] / Description:MRI Conditional under following conditions: Static magnetic field of 1.5 T or 3 T, Max spatial gradient field of 2500 Gauss/cm or less, Max slew rate 200 T/m/s , Max whole body DERIK of 4 W/kg or less, Head DERIK 3.2 W/kg or less , Do not place local transmit coils over chest, trunk , or shoulder region Insurance MEDICARE [facility] Advance Directives Documents on File Type Date Recorded Patient Head Of Quality Expl anation Advance Directives and Living Will 09/11/2015 12:00 AM P[facility]IB [facility] Advance Directives and Living Will 09/11/2015 12:00 AM 06/25/2006 [facility] Advance Directives and Living Will 08/14/2015 12:00 AM P[facility] [employer] [facility] Advance Directives and Living Will 08/14/2015 12:00 AM P[facility]IB [facility] Advance Directives and Living Will 04/17/2015 SHORT FORM POWER OF RIB PULLER * Full Code (Latest Code Status on File) Date Activated Date Inactivated Comments 04/21/2021 10:11 PM 04/24/2021 6:18 PM Care Teams Night Time Babysitter Relationship Specialty Start Date End Date Kris Storey MD [address] [place] [address] PCP - General INTERNAL MEDICINE 04/21/21 Home Skelton MD [address] [place] [address] Consulting Physician CLINICAL CARDIAC ELECTROPHYSIOLOGY 06/21/21
--- OUTSIDE RECORDS SUMMARY | 2025-10-18 15:39 | XMS_ITS | Clinical Summary ---
Author Organization [facility] Address [address] [place] [address] Care Team Providers Care Strawhat Blocking Operator Name Role Phone Kris Storey MD Primary Care Provider [phone] Sam Dodge MD Unavailable [phone] Allergies Active Allergy Reactions Criticality Noted Date [...] Encounters Date Type Department Care Team Description 10/11/2025 10:45 AM ELECTRIC UTILITY LINEWORKER Ancillary Procedure [facility] Cardiology [address] [place] [id number] Atrial fibrillation, unspecified type (HCC) 10/11/2025 Orders Only [facility] Card[facility] [address] [place] [address] [address], [place] [id number] Sam Dodge MD Atrial fibrillation, unspecified type (HCC) (Primary Dx) 08/30/2025 9:15 AM CDT Ancillary Procedure [facility] Card[facility] [address] [place] [phone] Status post placement of implantable loop recorder (Primary Dx); Atrial fibrillation, unspecified type (HCC) 08/30/2025 Telephone [facility] Cardiology [address] [place] [address] [address], [place] [address] Sam Dodge MD 2025 1:00 PM CDT Office Visit [facility] Card[facility] [address] [place] [address] [address] [place] [address] Sam Dodge MD Primary hypertension (Primary Dx); Mixed hyperlipidemia; Patent foramen ovale 07/19/2025 11:30 AM CDT Ancillary Procedure [facility] Cardiology [address] [place] [address] [address] [place] [address] Status post placement of implantable [...] Diagnosis Comments DEVICE CHECK - REMOTE Routine 10/11/2025 8:30 AM ELECTRIC UTILITY LINEWORKER Atrial fibrillation, unspecified type (HCC) DEVICE CHECK - REMOTE Routine 08/30/2025 10:32 AM CDT Atrial fibrillation, unspecified type (HCC) DEVICE CHECK - REMOTE Routine 07/19/2025 8:15 AM CDT Atrial fibrillation, unspecified type (HCC) POCT LIPID PANEL Routine 11/22/2024 12:5 6 PM ELECTRIC UTILITY LINEWORKER Mixed hyperlipidemia from Last 3 Months or Most Recently Relevant to Health Maintenance Results * DEVICE CHECK - REMOTE (10/11/2025 8:30 AM ELECTRIC UTILITY LINEWORKER) Anatomical Region Laterality Modality Other Narrative 10/13/2025 11:04 PM ELECTRIC UTILITY LINEWORKER 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 Patient had a routine [facility] remote transmission of their implantable loop recorder on October 11, 2025. Medications: ASA 325 mg daily, Toprol [...] Continue to monitor remotely. Ricky Bennett Device Chief Design Drafter us Sam Dodge MD [facility] PROC EDURES Final Result * DEVICE CHECK - REMOTE (08/30/2025 10:32 [...] Continue to monitor remotely. Ricky Bennett Device Chief Design Drafter us Sam Dodge MD CV CARDIAC SERVICES [...] Continue to monitor remotely. Ricky Bennett Device Chief Design Drafter Sam Dodge MD [facility] PROC EDURES Final Result * (ABNORMAL) POCT lipid panel (11/22/2024 12:56 PM ELECTRIC UTILITY LINEWORKER) HDL, POC 50(A) > - 40 mg/dL Triglycerides, POC 76 < - 150 mg/dL LDL Cholesterol POC 47 < - 100 mg/dL Chol/HDL Ratio, POC 1.0 < - 5.0 Non-HDL Cholesterol, POC 63 < - 130 mg/dL Cholesterol Total, POC 112 < - 200 mg/dL Capillary blood 11/22/2024 1 2:56 PM ELECTRIC UTILITY LINEWORKER Sam Dodge MD POINT OF CARE TEST ORDER IMELDA Final Result from Last 3 Months or Most Recently Relevant to Health Maintenance Insurance MEDICARE MEDICARE [facility] MEDICARE SUPPLEMENT Care Teams Strawhat Blocking Operator Relationship Specialty Start Date End Date Kris Storey MD PCP - General Internal Medicine 03/20/22 Sam Dodge MD [address] [address] Thoracic Medicine Specialist Cardiology 03/20/23
== END 2025-10-18 13:29 | disposition home or self-care (01) ==
PROVIDERS: PCP Internal Medicine
DX: I10 Essential (primary) hypertension (principal); I35.8 Other nonrheumatic aortic valve disorders; I08.1 Rheumatic disorders of both mitral and tricuspid valves
CPT/HCPCS: 93306